=== PATIENT | female | born 1930 | race Caucasian/White ===

== ENCOUNTER 2018-06-23 14:18 | Inpatient (IN) ==
[2018-06-23] MEDS ORDERED: Acetaminophen 325 MG Tablet PO ONE (16:14)
--- NOTE | 2018-06-23 16:16 | ED ---
HPI General Chief complaint: Extremity Problem,Nontraumatic Stated complaint: Rt Leg pain Time Seen by Provider: 06/23/18 16:02 Source: patient, EMS and RN notes reviewed Mode of arrival: EMS History of Present Illness HPI narrative: 88yF presenting with right leg pain and swelling. The patient states that she has a history of lower extremity DVT and uses a walker to ambulate at baseline. For the past 2-3 days, she's been having right calf swelling and severe "sharp" pain which is worse with weight bearing and somewhat relieved by rest. She says that the pain has been so severe yesterday and today that she is unable to ambulate even with the walker. She denies trauma , fever, chest pain, cough, dyspnea, or palpitations. Related Data Home Medications Medication Instructions Recorded Confirmed losartan 25 mg PO DAILY 06/23/18 06/23/18 Previous Rx's Medication Instructions Recorded enoxaparin [Lovenox] 80 mg SUB-Q Q12HR #10 ml 06/25/18 hydrocodone-acetaminophen 1 tab PO Q4H PRN #10 tab 06/25/18 warfarin [Coumadin] 4 mg PO DAILY@1600 #20 tab 06/25/18 Allergies Allergy/AdvReac Type Severity Reaction Status Date / Time penicillin G Allergy Severe "VIOLENT Verified 06/23/18 14:34 REACTION" Review of Systems ROS: all other systems reviewed are negative Constitutional Denies fever(s) Eyes Denies blurry vision ENT Denies nasal congestion Cardiovascular Denies chest pain Respiratory Denies cough Gastrointestinal Denies nausea Genitourinary Denies dysuria Musculoskeletal Denies back pain Neurologic Denies confusion Psychiatric Denies confusion PMFSH History History Provided By: Patient Medical History Medical History DVT (deep venous thrombosis) (Acute) HTN (hypertension) (Acute) Surgical History Surgical History Vascular abnormality (Acute) Family History Family History Other Unknown family medical history Social History Social History Substance History: No History of Abuse Second Hand Smoke Exposure: No Smoking Status: Former smoker Tobacco Type: Cigarettes How Often Do You Have a Drink Containing Alcohol: Never Recent Travel in [facility] within the Last 8 Weeks: No Recent Out of Country Travel within the Last 8 Weeks: No Immunization History Tetanus Immunization: <5 Years Hx Influenza Vaccine This Season: Yes Exam Const General: healthy appearing and no acute distress HENMT Head: normocephalic and atraumatic Face and sinus: normal facial exam Eyes General: appearance normal, both eyes and all related structures Pupils: PERRL Chest Chest: normal inspection of the chest Resp Effort & Inspection: normal respiratory effort Auscultation: no rhonchi and no wheezes Cardio Rate: regular rate Rhythm: regular rhythm GI Inspection: non-distended Palpation: soft and nontender Skin General: no rashes or lesions noted Neuro General: alert, awake, oriented x3 and no focal motor deficits Extrem Other: Erythematous patches to bilateral lower extremities which patient states are chronic and due to "sun damage" Trace to 1+ pitting edema of bilaterally lower extremities to knees Strong dorsalis pedis pulse on right, 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 Psych Affect: normal affect Course Initial Documented Vital Signs Temperature 98.9 F 06/23/18 14:30 Pulse Rate 66 06/23/18 14:30 Respiratory Rate 16 06/23/18 14:30 Blood Pressure 135/82 06/23/18 14:30 Pulse Oximetry 98 06/23/18 14:30 Last Documented Vital Signs Temperature 96.6 F L 06/25/18 10:59 Pulse Rate 78 06/25/18 10:59 Respiratory Rate 20 06/25/18 10:59 Blood Pressure 134/62 06/25/18 10:59 Pulse Oximetry 98 06/25/18 10:59 Medical Decision Making [facility] Narrative Medical decision making narrative: Assessment: 88yF presenting with right lower extremity swelling and pain, on Eliquis for previous DVT Plan: Basic labs US duplex Tylenol for pain Differential Diagnosis Differential Diagnosis: Differential diagnosis includes, but is not limited to: DVT, peripheral edema, musculoskeletal pain Lab Data Result diagrams: 06/24/18 07:31 06/24/18 07:31 Lab Results 06/23/18 06/23/18 06/23/18 Range/Units 17:32 17:32 17:32 CBC w Diff Auto diff final WBC 7.9 (4.0-11.0) th/mm3 RBC 3.56 L (4.00-5.30) mil/mm3 Hgb 12.5 (11.6-15.3) gm/dL Hct 37.8 (35.0-46.0) % MCV 106.2 H (80.0-100.0) fL MCH 35.1 H (27.0-34.0) pg MCHC 33.1 (32.0-36.0) % RDW 15.5 (11.6-17.2) % Plt Count 280 (150-450) th/mm3 MPV 7.4 (7.0-11.0) fL Neut % (Auto) 65.5 (16.0-70.0) % Lymph % (Auto) 26.7 (9.0-44.0) % Sharp % (Auto) 6.1 (0.0-8.0) % Eos % (Auto) 0.7 (0.0-4.0) % Baso % (Auto) 1.0 (0.0-2.0) % Neut # (Auto) 5.1 (1.8-7.7) th/mm3 Lymph # (Auto) 2.1 (1.0-4.8) th/mm3 Sharp # (Auto) 0.5 (0.0-0.9) th/mm3 Eos # (Auto) 0.1 (0.0-0.4) th/mm3 Baso # (Auto) 0.1 (0.0-0.2) th/mm3 WBC Differential . Differential Comment . PT 10.9 (9.8-11.6) sec INR 1.1 Ratio Sodium 140 (136-145) meq/L Potassium 4.3 (3.5-5.1) meq/L Chloride 107 (98-107) meq/L Carbon Dioxide 25.6 (21.0-32.0) meq/L Anion Gap 7 (5-15) meq/L BUN 24 H (7-18) mg/dL Creatinine 1.10 H (0.50-1.00) mg/dL Estimated GFR 47 L (>89) mL/min Random Glucose 103 (74-106) mg/dL Calcium 9.0 (8.5-10.1) mg/dL Total Bilirubin 0.6 (0.2-1.0) mg/dL AST 19 (15-37) U/L ALT 16 (10-53) U/L Alkaline Phosphatase 75 (45-117) U/L Total Protein 7.3 (6.4-8.2) g/dL Albumin 3.3 L (3.4-5.0) g/dL 06/24/18 06/24/18 06/25/18 Range/Units 07:31 07:31 07:27 CBC w Diff Auto diff final WBC 6.5 (4.0-11.0) th/mm3 RBC 3.41 L (4.00-5.30) mil/mm3 Hgb 12.1 (11.6-15.3) gm/dL Hct 35.7 (35.0-46.0) % MCV 104.8 H (80.0-100.0) fL MCH 35.6 H (27.0-34.0) pg MCHC 34.0 (32.0-36.0) % RDW 16.6 (11.6-17.2) % Plt Count 268 (150-450) th/mm3 MPV 7.8 (7.0-11.0) fL Neut % (Auto) 51.7 (16.0-70.0) % Lymph % (Auto) 36.6 (9.0-44.0) % Sharp % (Auto) 9.6 H (0.0-8.0) % Eos % (Auto) 1.4 (0.0-4.0) % Baso % (Auto) 0.7 (0.0-2.0) % Neut # (Auto) 3.4 (1.8-7.7) th/mm3 Lymph # (Auto) 2.4 (1.0-4.8) th/mm3 Sharp # (Auto) 0.6 (0.0-0.9) th/mm3 Eos # (Auto) 0.1 (0.0-0.4) th/mm3 Baso # (Auto) 0.0 (0.0-0.2) th/mm3 WBC Differential . Differential Comment . PT 11.1 (9.8-11.6) sec INR 1.1 Ratio Sodium 142 (136-145) meq/L Potassium 3.9 (3.5-5.1) meq/L Chloride 109 H (98-107) meq/L Carbon Dioxide 23.5 (21.0-32.0) meq/L Anion Gap 10 (5-15) meq/L BUN 22 H (7-18) mg/dL Creatinine 1.00 (0.50-1.00) mg/dL Estimated GFR 52 L (>89) mL/min Random Glucose 105 (74-106) mg/dL Calcium 8.5 (8.5-10.1) mg/dL Total Bilirubin 0.8 (0.2-1.0) mg/dL AST 17 (15-37) U/L ALT 16 (10-53) U/L Alkaline Phosphatase 72 (45-117) U/L Total Protein 6.8 (6.4-8.2) g/dL Albumin 3.1 L (3.4-5.0) g/dL Imaging Data Radiologist's impression: Venous Doppler Study 06/23/18 16:13 CONCLUSION: 1. Limited examination but positive for deep venous thrombosis at least in the popliteal and peroneal veins. Discharge Plan Discharge Disposition Patient Disposition: /Home Health Service Discharge Condition Condition: Stable Discharge Order Discharge Orders: Discharge Order (Routine); Ordered 06/25/18 Ordered By: Alana Stone Discharge Details Anticipated Discharge Date: 06/25/18 Physicians Team ED Provider: Morales Coles Primary Care Provider: Leandro Lipscomb Attending Provider: Alana Stone Other Providers: Alexis Bermudez Status ED Status: Left Department Discharge Information Discharge Date/Time: 06/23/18 20:55
[2018-06-23 17:40] LABS: Baso # (Auto) 0.1 th/mm3 (0.0-0.2); Eos # (Auto) 0.1 th/mm3 (0.0-0.4); Eos % (Auto) 0.7 % (0.0-4.0); Hematocrit 37.8 % (35.0-46.0); Hemoglobin 12.5 gm/dL (11.6-15.3); Lymph # (Auto) 2.1 th/mm3 (1.0-4.8); Lymph % (Auto) 26.7 % (9.0-44.0); Mean Corpuscular HGB Conc 33.1 % (32.0-36.0); Mean Corpuscular Hemoglobin 35.1 pg (27.0-34.0); Mean Corpuscular Volume 106.2 fL (80.0-100.0); Mean Platelet Volume 7.4 fL (7.0-11.0); Mono # (Auto) 0.5 th/mm3 (0.0-0.9); Mono % (Auto) 6.1 % (0.0-8.0); Neut # (Auto) 5.1 th/mm3 (1.8-7.7); Neut % (Auto) 65.5 % (16.0-70.0); Platelet Count 280 th/mm3 (150-450); Red Blood Count 3.56 mil/mm3 (4.00-5.30); Red Cell Distribution Width 15.5 % (11.6-17.2); White Blood Count 7.9 th/mm3 (4.0-11.0)
--- NOTE | 2018-06-23 17:44 | US ---
EXAM DATE: 06/23/2018 5:35 PM EDT AGE/SEX: 88 years / Female INDICATIONS: Right leg swelling and pain. CLINICAL DATA: This is the patient's initial encounter. Patient reports that signs and symptoms have been present for 1 day and indicates a pain score of 7/10. MEDICAL/SURGICAL HISTORY: . Right leg swelling and pain. DVT. None. COMPARISON: No prior exams available for comparison. TECHNIQUE: Venous ultrasound of both lower extremities was performed from the inguinal ligament to t he proximal calf. Real-time, color Doppler and spectral tracing, compression and augmentation techni ques were used. FINDINGS: There is normal compressibility of the common femoral vein and proximal and mid superficia l femoral vein. Examination limited due to leg swelling. No color flow identified in the popliteal pe roneal vein and distal superficial femoral vein not visualized. CONCLUSION: 1. Limited examination but positive for deep venous thrombosis at least in the popliteal and peronea l veins. Electronically signed by: Luis Brooks MD 06/23/2018 5:43 PM EDT
[2018-06-23 17:48] LABS: Chloride 107 meq/L (98-107); Potassium 4.3 meq/L (3.5-5.1); Sodium 140 meq/L (136-145)
[2018-06-23 17:52] LABS: Albumin 3.3 g/dL (3.4-5.0); Anion Gap 7 meq/L (5-15); Blood Urea Nitrogen 24 mg/dL (7-18); Carbon Dioxide 25.6 meq/L (21.0-32.0); Glucose,Random 103 mg/dL (74-106); INR 1.1 Ratio; Prothrombin Time 10.9 sec (9.8-11.6)
[2018-06-23 17:55] LABS: Alanine Aminotransferase 16 U/L (10-53); Aspartate Aminotransferase 19 U/L (15-37); Glomerular Filtration Rate 47 mL/min (>89)
[2018-06-23 17:57] LABS: Total Protein 7.3 g/dL (6.4-8.2)
[2018-06-23 17:58] LABS: Alkaline Phosphatase 75 U/L (45-117)
[2018-06-23] MEDS ORDERED: Bisacodyl 10 MG Supp RECTAL PRN (19:16)
[2018-06-23] MEDS ORDERED: Acetaminophen 325 MG Tablet PO PRN (19:16)
[2018-06-23] MEDS: Sod Chloride 0.9% Inj 1,000 ML IV.CONT SCH (20:09)
[2018-06-23] MEDS ORDERED: Temazepam 15 MG Capsule PO PRN (21:00)
[2018-06-23] MEDS: Enoxaparin Inj 80 MG/0.8 ML Syringe SQ SCH (21:54)
[2018-06-23] MEDS: Senna/Docusate Sodium 8.6/50 MG Tablet PO SCH (21:54)
[2018-06-24 04:55] VITALS: RESP 20
[2018-06-24] MEDS: Sod Chloride 0.9% Inj 1,000 ML IV.CONT SCH ×2 (07:18→11:12)
[2018-06-24 07:51] LABS: Baso % (Auto) 0.7 % (0.0-2.0); Eos # (Auto) 0.1 th/mm3 (0.0-0.4); Eos % (Auto) 1.4 % (0.0-4.0); Hematocrit 35.7 % (35.0-46.0); Hemoglobin 12.1 gm/dL (11.6-15.3); Lymph # (Auto) 2.4 th/mm3 (1.0-4.8); Lymph % (Auto) 36.6 % (9.0-44.0); Mean Corpuscular Hemoglobin 35.6 pg (27.0-34.0); Mean Corpuscular Volume 104.8 fL (80.0-100.0); Mean Platelet Volume 7.8 fL (7.0-11.0); Mono # (Auto) 0.6 th/mm3 (0.0-0.9); Mono % (Auto) 9.6 % (0.0-8.0); Neut # (Auto) 3.4 th/mm3 (1.8-7.7); Neut % (Auto) 51.7 % (16.0-70.0); Platelet Count 268 th/mm3 (150-450); Red Blood Count 3.41 mil/mm3 (4.00-5.30); Red Cell Distribution Width 16.6 % (11.6-17.2); White Blood Count 6.5 th/mm3 (4.0-11.0)
[2018-06-24 07:59] LABS: Chloride 109 meq/L (98-107); Potassium 3.9 meq/L (3.5-5.1); Sodium 142 meq/L (136-145)
[2018-06-24 08:05] LABS: Albumin 3.1 g/dL (3.4-5.0); Blood Urea Nitrogen 22 mg/dL (7-18); Calcium 8.5 mg/dL (8.5-10.1); Glucose,Random 105 mg/dL (74-106)
[2018-06-24 08:06] LABS: Anion Gap 10 meq/L (5-15); Carbon Dioxide 23.5 meq/L (21.0-32.0)
[2018-06-24 08:08] LABS: Alanine Aminotransferase 16 U/L (10-53); Aspartate Aminotransferase 17 U/L (15-37); Glomerular Filtration Rate 52 mL/min (>89)
[2018-06-24 08:10] LABS: Total Protein 6.8 g/dL (6.4-8.2)
[2018-06-24 08:11] LABS: Alkaline Phosphatase 72 U/L (45-117)
[2018-06-24] MEDS: Senna/Docusate Sodium 8.6/50 MG Tablet PO SCH ×3 (09:15→21:19)
[2018-06-24] MEDS: Enoxaparin Inj 80 MG/0.8 ML Syringe SQ SCH ×2 (09:15→21:14)
--- NOTE | 2018-06-24 13:04 | P.DCO ---
- Diagnosis (1) DVT (deep venous thrombosis) - Physical Therapy Order: Evaluate and treat, Improve ambulation - Home Health Nursing Order: Medical education, Signs/symptoms of disease process, Telehealth - Home Health Aide Order: To assist in: Bathing and personal care, cardiovascular sonographer and meal prep - Certification I have seen patient Astrid Davis on 06/24/18. My clinical findings support the need for the requested home health care services because: Patient has SOB, Deconditioned with increased weakness I certify that my clinical findings support that this patient is homebound because: Unsteady gait/balance, Unable to use public transportation (1) DVT (deep venous thrombosis) Qualifiers: DVT location: lower extremity Laterality: right
--- NOTE | 2018-06-24 13:09 | P.HPIM ---
History of Present Illness Primary Care Physician: Leandro Lipscomb MD Chief Complaint: Right leg pain History of Present Illness: Patient is an 88-year-old female with a history of DVT in the right lower extremity and Eliquis. She subsequently had an injury to the foot which resulted inrevascularization of the right leg and second right toe amputation. Patient comes back to the hospital complaining of severe nonradiating right lower extremity pain which is causing difficulty ambulating. Thus far she has refused any pain medication and has refused to get out of bed. I declined to the patient that she will need to be treated with warfarin and Lovenox instead of the Eliquis at this point. She is agreeable and is agreeable to continue with rehab efforts. Care plan discussed with patient and son at bedtime - Diagnosis (1) DVT (deep venous thrombosis) Inpatient Certification: I certify that the inpatient services were ordered in accordance with Medicare regulations governing the order. This includes certification that hospital inpatient services are reasonable and necessary and in the case of services not specified as inpatient-only under 42 CFR 419.22(n), that they are appropriately provided as inpatient services in accordance to with the 2-midnight benchmark under 43 CFR 412.3(e) Estimated Total Length of Stay (Days): 2 Plans for Post Hospital Care: Not yet determined Review of Systems All other systems reviewed negative except as stated [facility] - History History Provided By: Patient - Medical History Medical History: Medical History (Last Updated 06/24/18 @ 13:05 by Alana Stone MD) DVT (deep venous thrombosis) HTN (hypertension) - Surgical History Surgical History: Surgical History (Last Updated 06/24/18 @ 13:06 by Alana Stone MD) Vascular abnormality (Acute) - Family History Family History: Family History (Last Updated 06/24/18 @ 13:06 by Alana Stone MD) Other Unknown family medical history - Tobacco History Second Hand Smoke Exposure: No Tobacco Use In Past 30 Days: No Smoking Status: Former smoker Tobacco Type: Cigarettes - Alcohol History How Often Do You Have a Drink Containing Alcohol: Never - Substance Use History Substance History: No History of Abuse - Travel History Recent Travel in the [place] Within the Last 8 Weeks: No Recent Travel Out of the Country Within the Last 8 Weeks: No - Immunization History Tetanus Immunization: <5 Years Hx Influenza Vaccine This Season: Yes Medications and Allergies Active Medications: Active Medications Acetaminophen (Tylenol) 650 mg PO Q4H PRN PRN Reason: Temp > 100.4 Hydrocodone Bitart/Acetaminophen ([place] 10/325) 1 tab PO Q4H PRN PRN Reason: PAIN 6-10 Last Admin: 06/23/18 21:54 Dose: 1 tab Hydrocodone Bitart/Acetaminophen ([place] 5/325) 1 tab PO Q4H PRN PRN Reason: PAIN 3-5 Al Hydroxide/Mg Hydroxide (Milk Of Magnesia Liq) 30 ml PO Q12H PRN PRN Reason: Mild Constipation Bisacodyl (Dulcolax Supp) 10 mg RECTAL DAILY PRN PRN Reason: SEVERE CONSITIPATION Celecoxib (Celebrex) 200 mg PO ONCE ONE Stop: 06/24/18 13:02 Enoxaparin Sodium (Lovenox Inj) 80 mg SQ Q12HR [facility] Last Admin: 06/24/18 09:15 Dose: 80 mg Pharmacy Profile Note (Coumadin Consult Pharmacy) 0 mls @ 0 mls/hr OTHER UNSCH [facility] Lactulose (Lactulose Liq) 30 ml PO DAILY PRN PRN Reason: SEVERE CONSITIPATION Ondansetron HCl (Zofran Inj) 4 mg IV.PUSH Q6H PRN PRN Reason: NAUSEA OR VOMITING Senna/Docusate Sodium (Rocío-Colace) 1 tab PO BID [facility] Last Admin: 06/24/18 09:15 Dose: 1 tab Sennosides (Senokot) 17.2 mg PO Q12H PRN PRN Reason: Moderate Constipation Temazepam (Restoril) 15 mg PO HS PRN PRN Reason: INSOMNIA Warfarin Sodium (Coumadin) 4 mg PO DAILY@1600 [facility] Allergies Allergy/AdvReac Type Severity Reaction Status Date / Time penicillin G Allergy Severe "VIOLENT Verified 06/23/18 14:34 REACTION" Home Medications Medication Instructions Recorded Confirmed Type apixaban [Eliquis] 5 mg PO BID 06/23/18 06/23/18 History losartan 25 mg PO DAILY 06/23/18 06/23/18 History Exam Vital signs: Vital Signs 06/23/18 14:30 06/23/18 15:23 06/23/18 19:09 Temperature 98.9 F Pulse Rate 66 95 H 77 Respiratory Rate 16 16 16 Blood Pressure 135/82 175/74 H 119/59 L Pulse Oximetry 98 99 96 06/23/18 21:00 06/23/18 21:54 06/24/18 00:00 Temperature 97.9 F 98.1 F Pulse Rate 81 75 Respiratory Rate 20 18 20 Blood Pressure 127/59 L 142/70 H Pulse Oximetry 97 96 06/24/18 00:47 06/24/18 04:00 06/24/18 07:56 Temperature 96.6 F L 97.5 F L Pulse Rate 83 82 Respiratory Rate 18 20 20 Blood Pressure 133/73 135/63 Pulse Oximetry 95 93 L 06/24/18 11:35 Temperature 97.8 F Pulse Rate 80 Respiratory Rate 20 Blood Pressure 132/60 Pulse Oximetry 94 L Intake & Output 06/23/18 06/24/18 06/24/18 18:59 06:59 18:59 Intake Total 240 / 240 300 / 300 Balance 240 / 240 300 / 300 Weight 75 kg 86.5 kg Intake: IV 300 / 300 NS Inj 1,000 ML @ 100 mls/hr IV 300 / 300 .CONT .Q10H MICHELLE Rx#:[id number] Oral 240 / 240 Other: # Voids 3 Weight On Admission 88.6 kg Narrative: GENERAL: Well-nourished, well-developed patient. SKIN: She is ecchymoses in various stages of healing HEAD: Normocephalic. EYES: No scleral icterus. No injection or drainage. NECK: Supple, trachea midline. No JVD or lymphadenopathy. CARDIOVASCULAR: Regular rate and rhythm without murmurs, gallops, or rubs. RESPIRATORY: Breath sounds equal bilaterally. No accessory muscle use. GASTROINTESTINAL: Abdomen soft, non-tender, nondistended. MUSCULOSKELETAL: Right second toe amputated, otherwise extremities without no cyanosis, or edema. BACK: Nontender without obvious deformity. No CVA tenderness. NEUROLOGICAL: Awake and alert. Cranial nerves II through XII intact. Motor and sensory grossly within normal limits. Five out of 5 muscle strength in all muscle groups. Normal speech. Results - Labs CBC & Chem 7: 06/24/18 07:31 06/24/18 07:31 Labs: Short CBC 06/23/18 06/24/18 Range/Units 17:32 07:31 WBC 7.9 6.5 (4.0-11.0) th/mm3 Hgb 12.5 12.1 (11.6-15.3) gm/dL Hct 37.8 35.7 (35.0-46.0) % Plt Count 280 268 (150-450) th/mm3 BMP 06/23/18 06/24/18 17:32 07:31 Sodium 140 142 Potassium 4.3 3.9 Chloride 107 109 H Carbon Dioxide 25.6 23.5 BUN 24 H 22 H Creatinine 1.10 H 1.00 Calcium 9.0 8.5 Liver Function 06/23/18 06/24/18 Range/Units 17:32 07:31 Total Bilirubin 0.6 0.8 (0.2-1.0) mg/dL AST 19 17 (15-37) U/L ALT 16 16 (10-53) U/L Alkaline Phosphatase 75 72 (45-117) U/L Albumin 3.3 L 3.1 L (3.4-5.0) g/dL - Imaging Impressions Venous Doppler Study 06/23/18 16:13 CONCLUSION: 1. Limited examination but positive for deep venous thrombosis at least in the popliteal and peroneal veins. Caprini VTE Risk Assessment Caprini VTE Risk Assessment: Moderate/High Risk (score >= 2) VTE Pharmacological Exception Reason: Coagulopathy,INR elevated Caprini Risk Assessment Model: Point Value = 1 Point Value = 2 Point Value = 3 Point Value = 5 Age 41-60 Minor surgery BMI > 25 kg/m2 Swollen legs Varicose veins or History of unexplained or recurrent spontaneous Oral contraceptives or hormone replacement Sepsis (< 1 month) Serious lung disease, including pneumonia (< 1 month) Abnormal pulmonary function Acute myocardial infarction Congestive heart failure (< 1 month) History of inflammatory bowel disease Medical patient at bed rest Age 61-74 Arthroscopic surgery Major open surgery (> 45 min) Laparoscopic surgery (> 45 min) Malignancy Confined to bed (> 72 hours) Immobilizing plaster cast Central venous access Age >= 75 History of VTE Family history of VTE Factor V Leiden Prothrombin [id number] Lupus anticoagulant Anticardiolipin antibodies Elevated serum homocysteine Heparin-induced thrombocytopenia Other congenital or acquired thrombophilia Stroke (< 1 month) Elective arthroplasty Hip, pelvis, or leg fracture Acute spinal cord injury (< 1 month) Prophylaxis Regimen: Total Risk Factor Score Risk Level Prophylaxis Regimen 0-1 Low Early ambulation 2 Moderate Order ONE of the following: *Sequential Compression Device (SCD) *Heparin 5000 units SQ BID 3-4 Higher Order ONE of the following medications: *Heparin 5000 units SQ TID *Enoxaparin/Lovenox 40 mg SQ daily (WT < 150 kg, CrCl > 30 mL/min) *Enoxaparin/Lovenox 30 mg SQ daily (WT < 150 kg, CrCl > 10-29 mL/min) *Enoxaparin/Lovenox 30 mg SQ BID (WT < 150 kg, CrCl > 30 mL/min) AND/OR *Sequential Compression Device (SCD) 5 or more Highest Order ONE of the following medications: *Heparin 5000 units SQ TID (Preferred with Epidurals) *Enoxaparin/Lovenox 40 mg SQ daily (WT < 150 kg, CrCl > 30 mL/min) *Enoxaparin/Lovenox 30 mg SQ daily (WT < 150 kg, CrCl > 10-29 mL/min) *Enoxaparin/Lovenox 30 mg SQ BID (WT < 150 kg, CrCl > 30 mL/min) AND *Sequential Compression Device (SCD) Assessment and Plan - Assessment (1) DVT (deep venous thrombosis) Code(s): I82.409 - Acute embolism and thrombosis of unspecified deep veins of unspecified lower extremity Status: Acute Plan: Continue with Lovenox and Coumadin for bridging Patient has failed Eliquis Patient education anti-inflammatory for pain Continue with PT Likely discharge home with home health care when stable - Plan Likely discharge home with home health care in a.m. H&P: Quality - VTE Deep Vein Thrombosis/Pulmonary Embolism Present on Admission: Yes (1) DVT (deep venous thrombosis) Qualifiers: DVT location: lower extremity Laterality: right
[2018-06-24] MEDS ORDERED: Celecoxib 200 MG Capsule PO ONE (14:00)
[2018-06-24] MEDS ORDERED: Warfarin Consult Pharmacy 1 EACH OTHER SCH (14:00)
--- NOTE | 2018-06-25 00:27 | MB ---
cc: Alexis Bermudez MD DATE: 06/24/2018 REASON FOR CONSULTATION: An 88-year-old female with a diagnosis of deep vein thrombosis occurring while taking Eliquis. PATIENT PROFILE: The patient is an 88-year-old white female. She is . She has 2 children who are living. She has a daughter who is that she continues to mourn. The patient was born in [place]. She has lived in [place] for 35 years. She lives alone. She is retired. 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 She smoked only briefly when she was in her teens and early 20s. She does not drink alcohol. HISTORY OF PRESENT ILLNESS: The patient is an 88-year-old female who has peripheral vascular disease. She gives me history of having pain in the right calf for 2 weeks. When she came to the ER, she stated that she had pain for 2 or 3 days. This resulted in an ultrasound of the right leg being performed on 06/23/2018. This was a limited study, but was positive for deep vein thrombosis in the popliteal and peroneal veins. She had been prescribed Eliquis 5 mg p.o. b.i.d. for, I believe, atrial fibrillation. She also gave a history of having a previous deep vein thrombosis, but this is in fact not correct. In reviewing her records, she had arterial thrombosis involving the right lower extremity and had gangrene of the right second toe and ischemia of the right foot in 09/2016 and required amputation of a necrotic toe as well as right femoral artery exploration and arteriotomy, right common iliac balloon angioplasty and right superficial artery balloon angioplasty. I am unable to identify a previous history of venous thrombosis. Due to the fact that the venous thrombosis occurred on Eliquis, she was felt to have failed Eliquis and she is now receiving Lovenox and Coumadin. After speaking with her it became apparent that she was not consistent in taking the Eliquis, usually taking it once a day and some days she may not have taken the medicine at all. She tells me that she is forgetful as she remains preoccupied over the of her daughter which was a number of years ago. PAST SURGICAL HISTORY: 1. Right hip replacement [address] Ananth Harrison. 2. Amputation of toe of right foot for peripheral vascular disease. PAST MEDICAL HISTORY: 1. Peripheral vascular disease. 2. Atrial fibrillation. 3. Diabetes, controlled with diet. MEDICATIONS PRIOR TO ADMISSION: 1. Eliquis 5 mg p.o. b.i.d. 2. Losartan 25 mg a day. As indicated above, the patient was not necessarily taking the medicine as prescribed as she is very vague and tells me that she often took it once a day and sometimes she is not entirely sure when she took the medicine. ALLERGIES: PENICILLIN. FAMILY HISTORY: Noncontributory. REVIEW OF SYSTEMS: Notable for the recent pain in the right calf. Her major complaint is that she continues to mourn the loss of her daughter. Other review of systems is otherwise unremarkable. LABORATORY TESTS: On 06/24/2018, hemoglobin 12, white count 6500, platelets 268,000. PT 10.9. Electrolytes, BUN, creatinine and liver function tests were notable for an albumin of 3.1, creatinine was 1.0. PHYSICAL EXAMINATION: GENERAL: Reveals an inquisitive, talkative female who tends to wander from one subject to another, often repeating the same question. VITAL SIGNS: Blood pressure is 120/60, respiratory rate 20, pulse 80, afebrile, O2 saturation 95%. HEENT: Head is normocephalic. Sclerae and conjunctivae are normal. Oropharynx unremarkable. NECK: No adenopathy. HEART: Rhythm is mostly regular, extra beats or atrial fibrillation. LUNGS: Clear without rales, wheezes, or rhonchi. ABDOMEN: Without hepatosplenomegaly or masses. EXTREMITIES: She has had an amputation of a toe of her right foot. Slight right calf tenderness and swelling. NEUROLOGIC: No focal weakness. ASSESSMENT: The patient is an 88-year-old female who was admitted with a deep vein thrombosis in the right leg. I was asked to see her because she "failed Eliquis" and this was a second venous thrombosis. This is not entirely correct. She was not reliable in taking the medicine and her previous history is not of venous thrombosis, but an arterial thrombosis and I believe that the Eliquis may have been given for atrial fibrillation and possibly for arterial disease, but not due to previous venous thrombosis or at least I cannot find a history of this. RECOMMENDATIONS: Coumadin is a reasonable drug. She will need very close monitoring. She is not reliable. She should only take an anticoagulant which is taken once a day. If it becomes too difficult to manage her with Coumadin, I would consider Xarelto 20 mg once a day. I doubt that she has failed Eliquis. It appears more likely that she simply did not take the medicine as this appears to be the case when one questions her closely. I spoke with the on-call physician. Therefore, in summary, Coumadin is reasonable if she can undergo close meticulous monitoring. If not, I would give a try with Xarelto 20 mg once a day, making the assumption that she did not fail the Eliquis, as she did not take it reliably, as she readily admits when questioned closely. MD FRANK Conti/frank , 11:11 PM , 11:26 PM MTDDivina
[2018-06-25 07:26] VITALS: O2SAT 98
[2018-06-25 08:04] LABS: INR 1.1 Ratio; Prothrombin Time 11.1 sec (9.8-11.6)
[2018-06-25] MEDS: Enoxaparin Inj 80 MG/0.8 ML Syringe SQ SCH (09:17)
[2018-06-25] MEDS: Senna/Docusate Sodium 8.6/50 MG Tablet PO SCH (09:18)
--- NOTE | 2018-06-25 09:20 | P.PNIM ---
Subjective Interval history: Patient seen and evaluated in follow-up for DVT with severe pain inhibiting ambulation. Improved with pain management. Pain medicine on eforce shows last fill date 10/15/2016 oxycodone 5/325. Physical Exam Vital signs: Vital Signs 06/24/18 11:35 06/24/18 15:07 06/24/18 20:00 Temperature 97.8 F 97.6 F 97.5 F L Pulse Rate 80 96 H 86 Respiratory Rate 20 20 20 Blood Pressure 132/60 110/55 L 120/57 L Pulse Oximetry 94 L 95 95 06/25/18 00:00 06/25/18 04:00 06/25/18 07:24 Temperature 96.7 F L 96.3 F L Pulse Rate 93 H 75 Respiratory Rate 20 20 Blood Pressure 169/74 H 161/70 H 139/63 Pulse Oximetry 95 98 Intake & Output 06/24/18 06/25/18 06/25/18 18:59 06:59 18:59 Intake Total 1660 / 1660 240 / 240 Balance 1660 / 1660 240 / 240 Weight 86.4 kg Intake: IV 820 / 820 NS Inj 1,000 ML @ 100 mls/hr IV 820 / 820 .CONT .Q10H MICHELLE Rx#:[id number] Oral 840 / 840 240 / 240 Other: # Voids 3 4 # Bowel Movements 1 Narrative: GENERAL: Well-nourished, well-developed patient. SKIN: Warm and dry. HEAD: Normocephalic. EYES: No scleral icterus. No injection or drainage. NECK: Supple, trachea midline. No JVD or lymphadenopathy. CARDIOVASCULAR: Regular rate and rhythm without murmurs, gallops, or rubs. RESPIRATORY: Breath sounds equal bilaterally. No accessory muscle use. GASTROINTESTINAL: Abdomen soft, non-tender, nondistended. MUSCULOSKELETAL: No cyanosis, or edema. BACK: Nontender without obvious deformity. No CVA tenderness. NEUROLOGICAL: Awake and alert. Cranial nerves II through XII intact. Motor and sensory grossly within normal limits. Five out of 5 muscle strength in all muscle groups. Normal speech. Results - Labs CBC & Chem 7: 06/24/18 07:31 06/24/18 07:31 Laboratory Results - last 24 hr 06/25/18 07:27 PT 11.1 INR 1.1 - Imaging Ultrasound right lower extremity. Limited examination but positive for deep venous thrombosis at least in the popliteal and peroneal veins. Assessment and Plan - Assessment (1) DVT (deep venous thrombosis) Code(s): I82.409 - Acute embolism and thrombosis of unspecified deep veins of unspecified lower extremity Status: Acute Plan: Continue with Lovenox and Coumadin for bridging Patient has failed Eliquis Patient education pain regimen Continue with PT Likely discharge home with home health care when stable - Plan Likely discharge home with home health care in a.m. Discharge Planning: Discharge home With home health care Heart healthy diet Activity unrestricted (1) DVT (deep venous thrombosis) Qualifiers: DVT location: lower extremity Laterality: right
[2018-06-25 10:59] VITALS: BP 134/62; PULSE 78; TEMP 96.6
== END 2018-06-25 12:45 | disposition home health service (06) ==
LOC: PHED 14:18 → PHEDA 19:16 → PH3 20:51
PROVIDERS: ADMIT Hospitalist; ATTEND Hospitalist

== ENCOUNTER 2018-10-25 20:51 | Inpatient (IN) ==
[2018-10-25 22:12] LABS: Baso % (Auto) 0.3 % (0.0-2.0); Eos % (Auto) 0.2 % (0.0-4.0); Lymph # (Auto) 1.1 th/mm3 (1.0-4.8); Lymph % (Auto) 9.4 % (9.0-44.0); Mean Corpuscular HGB Conc 33.2 % (32.0-36.0); Mean Corpuscular Hemoglobin 36.6 pg (27.0-34.0); Mean Corpuscular Volume 110.1 fL (80.0-100.0); Mean Platelet Volume 7.4 fL (7.0-11.0); Mono # (Auto) 0.9 th/mm3 (0.0-0.9); Mono % (Auto) 7.4 % (0.0-8.0); Neut % (Auto) 82.7 % (16.0-70.0); Platelet Count 316 th/mm3 (150-450); Red Blood Count 3.27 mil/mm3 (4.00-5.30); Red Cell Distribution Width 19.4 % (11.6-17.2)
[2018-10-25 22:26] LABS: Chloride 106 meq/L (98-107); Potassium 4.3 meq/L (3.5-5.1); Sodium 140 meq/L (136-145)
[2018-10-25 22:29] LABS: Calcium 8.5 mg/dL (8.5-10.1)
[2018-10-25 22:30] LABS: Albumin 3.3 g/dL (3.4-5.0); Anion Gap 9 meq/L (5-15); Blood Urea Nitrogen 34 mg/dL (7-18); Carbon Dioxide 25.4 meq/L (21.0-32.0); Glucose,Random 159 mg/dL (74-106); Magnesium 2.2 mg/dL (1.5-2.5)
[2018-10-25 22:33] LABS: Alanine Aminotransferase 34 U/L (10-53); Aspartate Aminotransferase 65 U/L (15-37); Glomerular Filtration Rate 42 mL/min (>89)
[2018-10-25 22:34] LABS: Total Protein 7.9 g/dL (6.4-8.2)
[2018-10-25 22:36] LABS: Alkaline Phosphatase 92 U/L (45-117)
--- NOTE | 2018-10-25 22:48 | ED ---
HPI General Chief complaint: Weakness Stated complaint: Failure To Thrive Time Seen by Provider: 10/25/18 21:39 Source: patient Mode of arrival: ambulatory Limitations: no limitations History of Present Illness HPI Narrative: 88 yo F c/o falls for the past week. two falls have occurred each time while attempting to get off of her bed. today patient spent several hours on the floor. pt wonders if it is due to knee weakness 2/2 chronic arthritis. no head trauma. no complaints of generalized weakness or fever/ chills. no change in medications recently. pt lives alone with twice weekly visiting RN. pt is independent aside from laundry. Related Data Home Medications Medication Instructions Recorded Confirmed losartan 25 mg PO DAILY 06/23/18 10/25/18 Previous Rx's Medication Instructions Recorded enoxaparin [Lovenox] 80 mg SUB-Q Q12HR #10 ml 06/25/18 hydrocodone-acetaminophen 1 tab PO Q4H PRN #10 tab 06/25/18 warfarin [Coumadin] 4 mg PO DAILY@1600 #20 tab 06/25/18 Allergies Allergy/AdvReac Type Severity Reaction Status Date / Time penicillin G Allergy Severe "VIOLENT Verified 06/23/18 14:34 REACTION" Review of Systems ROS: all other systems reviewed are negative [facility] Medical History Medical History DVT (deep venous thrombosis) (Acute) HTN (hypertension) (Acute) Surgical History Surgical History Vascular abnormality (Acute) Family History Family History Other Unknown family medical history Social History Social History Substance History: No History of Abuse Second Hand Smoke Exposure: No Smoking Status: Unknown if ever smoked Tobacco Type: Cigarettes How Often Do You Have a Drink Containing Alcohol: Never Recent Travel in [facility] within the Last 8 Weeks: No Recent Out of Country Travel within the Last 8 Weeks: No Immunization History Tetanus Immunization: <5 Years Exam Narrative Exam Narrative: GENERAL: 88 yo F, WNWD, mild distress, pleasant SKIN: Focused skin assessment warm/dry. HEAD: Atraumatic. Normocephalic. EYES: Pupils equal and round. No scleral icterus. No injection or drainage. ENT: No nasal bleeding or discharge. Mucous membranes pink and moist. NECK: Trachea midline. No JVD. CARDIOVASCULAR: Regular rate and rhythm. No murmur appreciated. RESPIRATORY: No accessory muscle use. Clear to auscultation. Breath sounds equal bilaterally. GASTROINTESTINAL: Abdomen soft, non-tender, nondistended. Hepatic and splenic margins not palpable. MUSCULOSKELETAL: No obvious deformities. TTP R fibular head. No L knee TTP. Bilateral pitting edema lower extremities. NEUROLOGICAL: Awake and alert. No obvious cranial nerve deficits. Motor grossly within normal limits. Normal speech. PSYCHIATRIC: Appropriate mood and affect; insight and judgment normal. Course Initial Documented Vital Signs Temperature 97.6 F 10/25/18 21:29 Pulse Rate 84 10/25/18 21:29 Respiratory Rate 18 10/25/18 21:29 Blood Pressure 122/52 L 10/25/18 21:29 Pulse Oximetry 98 10/25/18 21:29 Last Documented Vital Signs Temperature 97.6 F 10/25/18 21:29 Pulse Rate 87 10/25/18 23:54 Respiratory Rate 16 10/25/18 23:54 Blood Pressure 118/56 L 10/25/18 23:54 Pulse Oximetry 100 10/25/18 23:54 Medical Decision Making [facility] Narrative Medical decision making narrative: CBC shows white count of 12,000, otherwise unremarkable CMP shows BUN 34/1.2 CK 1600 - IVF started UA pending Knee xrays show no fx, DJD present Pelvis xray unremarkable d/w Dr Rush at 1217AM, ok for HPO admission Medical Screen Exam Complete: Yes Emergency Medical Condition: Yes Lab Data Result diagrams: 10/25/18 21:58 10/25/18 21:58 Lab Results 10/25/18 10/25/18 10/25/18 Range/Units 21:58 21:58 21:58 CBC w Diff Auto diff final WBC 12.0 H (4.0-11.0) th/mm3 RBC 3.27 L (4.00-5.30) mil/mm3 Hgb 12.0 (11.6-15.3) gm/dL Hct 36.0 (35.0-46.0) % MCV 110.1 H (80.0-100.0) fL MCH 36.6 H (27.0-34.0) pg MCHC 33.2 (32.0-36.0) % RDW 19.4 H (11.6-17.2) % Plt Count 316 (150-450) th/mm3 MPV 7.4 (7.0-11.0) fL Neut % (Auto) 82.7 H (16.0-70.0) % Lymph % (Auto) 9.4 (9.0-44.0) % [place] % (Auto) 7.4 (0.0-8.0) % Eos % (Auto) 0.2 (0.0-4.0) % Baso % (Auto) 0.3 (0.0-2.0) % Neut # (Auto) 10.0 H (1.8-7.7) th/mm3 Lymph # (Auto) 1.1 (1.0-4.8) th/mm3 [place] # (Auto) 0.9 (0.0-0.9) th/mm3 Eos # (Auto) 0.0 (0.0-0.4) th/mm3 Baso # (Auto) 0.0 (0.0-0.2) th/mm3 WBC Differential . Differential Comment . Sodium 140 (136-145) meq/L Potassium 4.3 (3.5-5.1) meq/L Chloride 106 (98-107) meq/L Carbon Dioxide 25.4 (21.0-32.0) meq/L Anion Gap 9 (5-15) meq/L BUN 34 H (7-18) mg/dL Creatinine 1.20 H (0.50-1.00) mg/dL Estimated GFR 42 L (>89) mL/min Random Glucose 159 H (74-106) mg/dL Calcium 8.5 (8.5-10.1) mg/dL Magnesium 2.2 (1.5-2.5) mg/dL Total Bilirubin 1.3 H (0.2-1.0) mg/dL AST 65 H (15-37) U/L ALT 34 (10-53) U/L Alkaline Phosphatase 92 (45-117) U/L Total Creatine Kinase 1601 H (26-192) U/L Total Protein 7.9 (6.4-8.2) g/dL Albumin 3.3 L (3.4-5.0) g/dL Imaging Data Radiologist's impression: Knee X-Ray 10/25/18 21:39 CONCLUSION: 1. Mild degenerative change. 2. Osteopenia with no evidence of fracture. 3. Diffuse soft tissue prominence. Knee X-Ray 10/25/18 21:39 CONCLUSION: 1. 3 compartment degenerative change greatest in lateral compartment. 2. Osteopenia with no acute fracture. 3. Diffuse soft tissue tissue prominence. Pelvis X-Ray 10/25/18 21:39 CONCLUSION: 1. Mild degenerative change in the left hip. 2. Osteopenia with no acute fracture. 3. Status post right hip arthroplasty. 4. Degenerative disc change and scoliosis in the lumbar spine. Discharge Plan Discharge Disposition Patient Disposition: ED Admit(ED Internal Use Only) Discharge Order Discharge Orders: ED Use Only Admit Order (Routine); Ordered 10/26/18 Ordered By: Virgil Burgos Physicians Team ED Provider: Virgil Burgos Primary Care Provider: Leandro Lipscomb Rxs /Orders / Referrals /Forms Prescriptions: No Action losartan 50 mg Tablet 25 mg PO DAILY RF: 0 warfarin [Coumadin] 4 mg Tablet 4 mg PO DAILY@1600 Qty: 20 RF: 0 enoxaparin [Lovenox] 80 mg/0.8 mL Syringe 80 mg Sub-Q Q12HR Qty: 10 RF: 1 hydrocodone-acetaminophen 5-325 mg Tablet 1 tab PO Q4H PRN (Reason: PAIN 3-5) Qty: 10 RF: 0 Status ED Status: In Room
--- NOTE | 2018-10-25 22:56 | XR ---
EXAM DATE: 10/25/2018 10:53 PM EST AGE/SEX: 88 years / Female INDICATIONS: Pain in pelvis, no known injury. CLINICAL DATA: This is the patient's initial encounter. Patient reports that signs and symptoms have been present for 1 day and indicates a pain score of Nonresponsive. MEDICAL/SURGICAL HISTORY: Non-responsive. Non-responsive. COMPARISON: [facility] INJECTION- HIP, LEFT, 08/25/2015. . FINDINGS: A single AP view of the pelvis was obtained and demonstrates the patient is status post right hip art hroplasty. There are degenerative changes in left hip with superior joint space loss, sclerosis and m ild hypertrophic change. There is diffuse osteopenia with no acute fracture. The sacrum appears intac t. Degenerative disc changes are noted involving the lower lumbar spine with scoliosis. CONCLUSION: 1. Mild degenerative change in the left hip. 2. Osteopenia with no acute fracture. 3. Status post right hip arthroplasty. 4. Degenerative disc change and scoliosis in the lumbar spine. Electronically signed by: Boo Clemente MD 10/25/2018 10:55 PM EST
--- NOTE | 2018-10-25 22:58 | XR ---
EXAM DATE: 10/25/2018 10:54 PM EST AGE/SEX: 88 years / Female INDICATIONS: Swelling bilateral knees. CLINICAL DATA: This is the patient's initial encounter. Patient reports that signs and symptoms have been present for 1 day and indicates a pain score of Nonresponsive. MEDICAL/SURGICAL HISTORY: Non-responsive. Non-responsive. COMPARISON: No prior exams available for comparison. FINDINGS: Multiple views of the knee were obtained and demonstrate diffuse osteopenia in normal alignment. 3 co mpartment degenerative changes are present greatest in the lateral compartment with joint space loss, sclerosis and spurring. There is diffuse osteopenia with no acute fracture. There is diffuse soft ti ssue prominence. CONCLUSION: 1. 3 compartment degenerative change greatest in lateral compartment. 2. Osteopenia with no acute fracture. 3. Diffuse soft tissue tissue prominence. Electronically signed by: Boo Clemente MD 10/25/2018 10:56 PM EST
--- NOTE | 2018-10-25 22:59 | XR ---
EXAM DATE: 10/25/2018 10:56 PM EST AGE/SEX: 88 years / Female INDICATIONS: Swelling bilateral knees. CLINICAL DATA: This is the patient's initial encounter. Patient reports that signs and symptoms have been present for 1 day and indicates a pain score of Nonresponsive. MEDICAL/SURGICAL HISTORY: None. None. COMPARISON: No prior exams available for comparison. FINDINGS: Multiple views of the knee were obtained and demonstrate osteopenia in normal alignment. There are mi ld degenerative changes in the patellofemoral joint and lateral compartment with mild joint space los s and hypertrophic change. There is no acute fracture. There is diffuse soft tissue prominence. CONCLUSION: 1. Mild degenerative change. 2. Osteopenia with no evidence of fracture. 3. Diffuse soft tissue prominence. Electronically signed by: Boo Clemente MD 10/25/2018 10:57 PM EST
[2018-10-26] MEDS ORDERED: Sod Chloride 0.9% Inj 1,000 ML IV.SIG SCH (00:15)
[2018-10-26] MEDS ORDERED: Acetaminophen 325 MG Tablet PO PRN (00:27)
[2018-10-26] MEDS ORDERED: Bisacodyl 10 MG Supp RECTAL PRN (00:27)
[2018-10-26] MEDS ORDERED: Warfarin Consult Pharmacy OTHER PRN (00:35)
[2018-10-26 01:54] LABS: Bilirubin,Urine Negative (Negative); Clarity,Urine Clear (Clear); Color,Urine Yellow (Yellw/Straw); Glucose,Urine (UA) 100 mg/dL (Negative); Leukocyte Esterase,Urine Negative (Negative); Nitrite,Urine Negative (Negative); Specific Gravity,Urine Greater/Equal 1.030 (1.002-1.035); Urobilinogen,Urine 0.2 mg/dL (Less than 2)
[2018-10-26 01:59] LABS: INR 1.1 Ratio; Prothrombin Time 11.2 sec (9.8-11.6)
[2018-10-26 02:16] LABS: Amorphous Sediment,Urine Few /hpf; Bacteria,Urine Occasional /hpf; Squamous Epithelial Cell,Urine 0-5 /hpf (0-5); WBC,Urine 0-5 /hpf (0-5)
[2018-10-26] MEDS: Sod Chloride 0.9% Inj 1,000 ML IV.CONT SCH ×2 (03:20→11:44)
[2018-10-26 03:51] LABS: Troponin I 0.03 ng/mL (0.02-0.05)
[2018-10-26 04:03] LABS: CKMB Percent 0.6 % (0.0-4.0); Creatine Kinase MB 7.3 ng/mL (0.5-3.6)
[2018-10-26 05:12] LABS: CKMB Percent 0.5 % (0.0-4.0); Creatine Kinase MB 7.9 ng/mL (0.5-3.6)
[2018-10-26 06:56] LABS: Troponin I 0.02 ng/mL (0.02-0.05)
[2018-10-26 07:20] LABS: CKMB Percent 0.6 % (0.0-4.0); Creatine Kinase MB 7.2 ng/mL (0.5-3.6)
--- NOTE | 2018-10-26 09:24 | P.HP ---
History of Present Illness Primary Care Physician: Leandro Lipscomb MD Chief Complaint: Fall x 2 at home, rhabdo History of Present Illness: This is an 88-year-old female patient with no medical history of hypertension and history of DVT on Eliquis who presented to the ED from home status post fall x2. Patient states that while attempting to get out of bed she slipped to the floor, she states that she was on the floor for roughly 12 hours, was able to scoot herself to the phone and eventually get help. She states that she does have some knee weakness secondary to chronic arthritis, she denies any lightheadedness or dizziness. Denies any hitting her head or any loss of consciousness. Patient does have a history of right leg DVT, is on Eliquis. Does not follow with a demi chef. PCP is Dr. Lipscomb, seen 6 weeks ago with no changes to her medications. Patient does live at home alone, is able to perform all ADLs for herself, has RN to visit her twice weekly. There is any recent illness including fever, chills, cough, headache, chest pain, abdominal, diarrhea. Has been eating and drinking. Presented with CPK in 1600s. - Diagnosis (1) Fall at home (2) Rhabdomyolysis Review of Systems All other systems reviewed negative except as stated in HPI PMFSH - History History Provided By: Patient - Medical History Medical History: Medical History (Last Reviewed 10/26/18 @ 10:26 by Jadyn Hernandez) DVT (deep venous thrombosis) HTN (hypertension) - Surgical History Surgical History: Surgical History (Last Reviewed 10/26/18 @ 10:26 by Jadyn Hernandez) Vascular abnormality (Acute) - Family History Family History: Family History (Last Updated 10/26/18 @ 10:27 by Jadyn Hernandez) Other Family history non-contributory - Social History I have reviewed the patient's Social History: Yes - Tobacco History Second Hand Smoke Exposure: No Tobacco Use In Past 30 Days: No Smoking Status: Former smoker Tobacco Type: Cigarettes - Alcohol History How Often Do You Have a Drink Containing Alcohol: Never - Substance Use History Substance History: No History of Abuse - Travel History Recent Travel in the [place] Within the Last 8 Weeks: No Recent Travel Out of the Country Within the Last 8 Weeks: No - Immunization History Tetanus Immunization: <5 Years Hx Influenza Vaccine This Season: No Medications and Allergies Active Medications: Active Medications Acetaminophen (Tylenol) 650 mg PO Q4H PRN PRN Reason: Temp > 100.4 Al Hydroxide/Mg Hydroxide (Milk Of Magnesia Liq) 30 ml PO Q12H PRN PRN Reason: Mild Constipation Bisacodyl (Dulcolax Supp) 10 mg RECTAL DAILY PRN PRN Reason: SEVERE CONSITIPATION Sodium Chloride (Ns Inj) 1,000 mls @ 100 mls/hr IV.CONT .Q10H [facility] Last Admin: 10/26/18 03:20 Dose: 100 mls/hr Lactulose (Lactulose Liq) 30 ml PO DAILY PRN PRN Reason: SEVERE CONSITIPATION Ondansetron HCl (Zofran Inj) 4 mg IV.PUSH Q6H PRN PRN Reason: NAUSEA OR VOMITING Pharmacy Profile Note (Coumadin Consult Pharmacy) 1 each OTHER UNSCH PRN PRN Reason: PHARMACY DOCUMENTATION Sennosides (Senokot) 17.2 mg PO Q12H PRN PRN Reason: Moderate Constipation Sodium Chloride (Ns Flush) 2 ml IV.FLUSH BID [facility] Last Admin: 10/26/18 08:23 Dose: Not Given Sodium Chloride (Ns Flush) 2 ml IV.FLUSH PRN PRN PRN Reason: FLUSH AFTER USING IV ACCESS Allergies Allergy/AdvReac Type Severity Reaction Status Date / Time penicillin G Allergy Severe "VIOLENT Verified 06/23/18 14:34 REACTION" Home Medications Medication Instructions Recorded Confirmed Type losartan 25 mg PO DAILY 06/23/18 10/25/18 History Exam Vital signs: Vital Signs 10/25/18 21:29 10/25/18 23:54 10/26/18 04:00 Temperature 97.6 F 97.5 F L Pulse Rate 84 87 89 Respiratory Rate 18 16 18 Blood Pressure 122/52 L 118/56 L 113/54 L Pulse Oximetry 98 100 96 10/26/18 08:00 Temperature 97.8 F Pulse Rate 92 H Respiratory Rate 20 Blood Pressure 124/58 L Pulse Oximetry 96 Intake & Output 10/25/18 10/26/18 10/26/18 18:59 06:59 18:59 Intake Total 1000 / 1000 Balance 1000 / 1000 Weight 93.1 kg Intake: IV 1000 / 1000 NS Inj 1,000 ML @ 1000 mls/hr 1000 / 1000 IV.SIG BOLUS [facility] Rx#:[id number] Other: Weight On Admission 92.9 kg Narrative: GENERAL: Well-developed, well-nourished elderly female patient in [place]. SKIN: Warm and dry. No rash. HEAD: Normocephalic. Atraumatic. EYES: Pupils equal and round. No scleral icterus. No injection or drainage. ENT: No nasal bleeding or discharge. Mucous membranes pink and moist. NECK: Supple. Trachea midline. CARDIOVASCULAR: Regular rate and rhythm. S1, S2 noted. No murmur appreciated. RESPIRATORY: No accessory muscle use. Clear to auscultation. Breath sounds equal bilaterally. GASTROINTESTINAL: Abdomen soft, non-tender, nondistended. Normoactive bowel sounds x4. MUSCULOSKELETAL: No obvious deformities. Extremities without clubbing, cyanosis , or edema. RIGHT LOWER EXTREMITY: Second digit amputation. Appears to be chronic peripheral artery disease, erythema noted. no edema. no pain to palpation. NEUROLOGICAL: Awake and alert. No obvious cranial nerve deficits. Motor grossly within normal limits. 5/5 muscle strength in bilateral upper and lower extremities. Normal speech. PSYCHIATRIC: Appropriate mood and affect; insight and judgment normal. Results - Labs CBC & Chem 7: 10/25/18 21:58 10/25/18 21:58 Labs: Laboratory Results - last 24 hr 10/25/1818 10/25/18 21:58 21:58 21:58 CBC w Diff Auto diff final WBC 12.0 H RBC 3.27 L Hgb 12.0 Hct 36.0 MCV 110.1 H MCH 36.6 H MCHC 33.2 RDW 19.4 H Plt Count 316 MPV 7.4 Neut % (Auto) 82.7 H Lymph % (Auto) 9.4 [place] % (Auto) 7.4 Eos % (Auto) 0.2 Baso % (Auto) 0.3 Neut # (Auto) 10.0 H Lymph # (Auto) 1.1 [place] # (Auto) 0.9 Eos # (Auto) 0.0 Baso # (Auto) 0.0 WBC Differential . Differential Comment . PT INR Sodium 140 Potassium 4.3 Chloride 106 Carbon Dioxide 25.4 Anion Gap 9 BUN 34 H Creatinine 1.20 H Estimated GFR 42 L Random Glucose 159 H Calcium 8.5 Magnesium 2.2 Total Bilirubin 1.3 H AST 65 H ALT 34 Alkaline Phosphatase 92 Total Creatine Kinase 1601 H CK-MB (CK-2) 7.9 H CK-MB (CK-2) % 0.5 Troponin I Total Protein 7.9 Albumin 3.3 L Urine Color Urine Clarity Urine pH Ur Specific [place] Urine Protein Urine Glucose (UA) Urine Ketones Urine Occult Blood Urine Nitrate Urine Bilirubin Urine Urobilinogen Ur Leukocyte Esterase Urine RBC Urine WBC Urine WBC Clumps Ur Squamous Epith Cells Amorphous Sediment Urine Bacteria Micro UA Comment Ur Microscopic Review Urine Culture Comments 10/26/18 10/26/18 10/26/18 00:30 01:00 02:15 CBC w Diff WBC RBC Hgb Hct MCV MCH MCHC RDW Plt Count MPV Neut % (Auto) Lymph % (Auto) [place] % (Auto) Eos % (Auto) Baso % (Auto) Neut # (Auto) Lymph # (Auto) [place] # (Auto) Eos # (Auto) Baso # (Auto) WBC Differential Differential Comment PT 11.2 INR 1.1 Sodium Potassium Chloride Carbon Dioxide Anion Gap BUN Creatinine Estimated GFR Random Glucose Calcium Magnesium Total Bilirubin AST ALT Alkaline Phosphatase Total Creatine Kinase 1232 H CK-MB (CK-2) 7.3 H CK-MB (CK-2) % 0.6 Troponin I 0.03 Total Protein Albumin Urine Color Yellow Urine Clarity Clear Urine pH 5.0 Ur Specific [place] Greater/equal 1.030 Urine Protein Negative Urine Glucose (UA) 100 H Urine Ketones Negative Urine Occult Blood Large H Urine Nitrate Negative Urine Bilirubin Negative Urine Urobilinogen 0.2 Ur Leukocyte Esterase Negative Urine RBC 4-15 H Urine WBC 0-5 Urine WBC Clumps Few H Ur Squamous Epith Cells 0-5 Amorphous Sediment Few H Urine Bacteria Occasional H Micro UA Comment Culture indicated Ur Microscopic Review Microscopic reviewed Urine Culture Comments Culture indicated 10/26/18 05:00 CBC w Diff WBC RBC Hgb Hct MCV MCH MCHC RDW Plt Count MPV Neut % (Auto) Lymph % (Auto) [place] % (Auto) Eos % (Auto) Baso % (Auto) Neut # (Auto) Lymph # (Auto) [place] # (Auto) Eos # (Auto) Baso # (Auto) WBC Differential Differential Comment PT INR Sodium Potassium Chloride Carbon Dioxide Anion Gap BUN Creatinine Estimated GFR Random Glucose Calcium Magnesium Total Bilirubin AST ALT Alkaline Phosphatase Total Creatine Kinase 1256 H CK-MB (CK-2) 7.2 H CK-MB (CK-2) % 0.6 Troponin I 0.02 Total Protein Albumin Urine Color Urine Clarity Urine pH Ur Specific [place] Urine Protein Urine Glucose (UA) Urine Ketones Urine Occult Blood Urine Nitrate Urine Bilirubin Urine Urobilinogen Ur Leukocyte Esterase Urine RBC Urine WBC Urine WBC Clumps Ur Squamous Epith Cells Amorphous Sediment Urine Bacteria Micro UA Comment Ur Microscopic Review Urine Culture Comments - Imaging Impressions Knee X-Ray 10/25/18 21:39 CONCLUSION: 1. Mild degenerative change. 2. Osteopenia with no evidence of fracture. 3. Diffuse soft tissue prominence. Knee X-Ray 10/25/18 21:39 CONCLUSION: 1. 3 compartment degenerative change greatest in lateral compartment. 2. Osteopenia with no acute fracture. 3. Diffuse soft tissue tissue prominence. Pelvis X-Ray 10/25/18 21:39 CONCLUSION: 1. Mild degenerative change in the left hip. 2. Osteopenia with no acute fracture. 3. Status post right hip arthroplasty. 4. Degenerative disc change and scoliosis in the lumbar spine. Caprini VTE Risk Assessment Caprini VTE Risk Assessment: Moderate/High Risk (score >= 2) Caprini Risk Assessment Model: Point Value = 1 Point Value = 2 Point Value = 3 Point Value = 5 Age 41-60 Minor surgery BMI > 25 kg/m2 Swollen legs Varicose veins or History of unexplained or recurrent spontaneous Oral contraceptives or hormone replacement Sepsis (< 1 month) Serious lung disease, including pneumonia (< 1 month) Abnormal pulmonary function Acute myocardial infarction Congestive heart failure (< 1 month) History of inflammatory bowel disease Medical patient at bed rest Age 61-74 Arthroscopic surgery Major open surgery (> 45 min) Laparoscopic surgery (> 45 min) Malignancy Confined to bed (> 72 hours) Immobilizing plaster cast Central venous access Age >= 75 History of VTE Family history of VTE Factor V Leiden Prothrombin [id number] Lupus anticoagulant Anticardiolipin antibodies Elevated serum homocysteine Heparin-induced thrombocytopenia Other congenital or acquired thrombophilia Stroke (< 1 month) Elective arthroplasty Hip, pelvis, or leg fracture Acute spinal cord injury (< 1 month) Prophylaxis Regimen: Total Risk Factor Score Risk Level Prophylaxis Regimen 0-1 Low Early ambulation 2 Moderate Order ONE of the following: *Sequential Compression Device (SCD) *Heparin 5000 units SQ BID 3-4 Higher Order ONE of the following medications: *Heparin 5000 units SQ TID *Enoxaparin/Lovenox 40 mg SQ daily (WT < 150 kg, CrCl > 30 mL/min) *Enoxaparin/Lovenox 30 mg SQ daily (WT < 150 kg, CrCl > 10-29 mL/min) *Enoxaparin/Lovenox 30 mg SQ BID (WT < 150 kg, CrCl > 30 mL/min) AND/OR *Sequential Compression Device (SCD) 5 or more Highest Order ONE of the following medications: *Heparin 5000 units SQ TID (Preferred with Epidurals) *Enoxaparin/Lovenox 40 mg SQ daily (WT < 150 kg, CrCl > 30 mL/min) *Enoxaparin/Lovenox 30 mg SQ daily (WT < 150 kg, CrCl > 10-29 mL/min) *Enoxaparin/Lovenox 30 mg SQ BID (WT < 150 kg, CrCl > 30 mL/min) AND *Sequential Compression Device (SCD) Assessment and Plan - Assessment (1) Fall at home Code(s): W19.XXXA - Unspecified fall, initial encounter; Y92.009 - Unspecified place in unspecified non-institutional (private) residence as the place of occurrence of the external cause Status: Acute (2) Rhabdomyolysis Code(s): M62.82 - Rhabdomyolysis Status: Acute - Plan This is an 88-year-old female patient with: Rhabdomyolysis Acute kidney injury suspect secondary to above Mechanical fall x 2 at home -Patient presented with fall x2 at home, CPK 1600, creatinine 1.2. -Started on IV fluids. Ensure hydration. -Mild trend down in CPK. Continue to follow. -PT and OT consulted, evaluation pending. -Close monitoring. -Follow labs. Hypertension, chronic: Patient does not take any antihypertensives. Will follow blood pressure trend. 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 -Unsure of timing of this right lower extremity DVT. -Will attempt to obtain records from PCP. Will hold Eliquis for now. -Obtain right lower extremity US to rule out DVT. Abnormal UA rule out UTI -Patient does complaint of dysuria. -Will start on Cipro for now. -Follow urine culture. Does have mild leukocytosis, may be secondary to presence of UTI. DVT Prophylaxis: SCDs once right lower ext DVT resulted and negative for DVT.
--- NOTE | 2018-10-26 11:40 | US ---
EXAM DATE: 10/26/2018 11:32 AM EST AGE/SEX: 88 years / Female INDICATIONS: Right leg redness. Status post fall. History of prior deep venous thrombosis in poplit eal and peroneal veins 4 months ago. CLINICAL DATA: This is the patient's initial encounter. Patient reports that signs and symptoms have been present for 1 day and indicates a pain score of 0/10. MEDICAL/SURGICAL HISTORY: . Hypertension. Redness. . Vascular abnormality. COMPARISON: [facility], US VENOUS DOPPLER LEG RIGHT, 06/23/2018. . TECHNIQUE: Venous ultrasound of both lower extremities was performed from the inguinal ligament to t he proximal calf. Real-time, color Doppler and spectral tracing, compression and augmentation techni ques were used. FINDINGS: Visualization is again limited due to the patient's body habitus. There is nonocclusive th rombus in the mid femoral vein. The proximal and distal portion of the official femoral vein are taveras nt. The popliteal and calf veins appear patent as well. CONCLUSION: 1. 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 Electronically signed by: Boo Clemente MD 10/26/2018 11:38 AM EST
[2018-10-26] MEDS: Ciprofloxacin 250 MG Tablet PO SCH ×2 (11:51→21:20)
[2018-10-27] MEDS: Sod Chloride 0.9% Inj 1,000 ML IV.CONT SCH ×2 (01:15→08:12)
[2018-10-27 06:05] LABS: Potassium 3.8 meq/L (3.5-5.1)
[2018-10-27 06:07] LABS: Prothrombin Time 10.6 sec (9.8-11.6)
[2018-10-27 06:38] LABS: Baso % (Auto) 0.5 % (0.0-2.0); Eos # (Auto) 0.1 th/mm3 (0.0-0.4); Eos % (Auto) 1.9 % (0.0-4.0); Hematocrit 31.6 % (35.0-46.0); Hemoglobin 10.2 gm/dL (11.6-15.3); Lymph # (Auto) 1.9 th/mm3 (1.0-4.8); Lymph % (Auto) 24.7 % (9.0-44.0); Mean Corpuscular HGB Conc 32.2 % (32.0-36.0); Mean Corpuscular Hemoglobin 36.1 pg (27.0-34.0); Mean Corpuscular Volume 112.1 fL (80.0-100.0); Mean Platelet Volume 7.9 fL (7.0-11.0); Mono # (Auto) 0.7 th/mm3 (0.0-0.9); Mono % (Auto) 9.3 % (0.0-8.0); Neut # (Auto) 5.1 th/mm3 (1.8-7.7); Neut % (Auto) 63.6 % (16.0-70.0); Platelet Count 286 th/mm3 (150-450); Red Blood Count 2.82 mil/mm3 (4.00-5.30); White Blood Count 7.8 th/mm3 (4.0-11.0)
[2018-10-27 07:08] LABS: Calcium 7.6 mg/dL (8.5-10.1); Carbon Dioxide 23.4 meq/L (21.0-32.0)
[2018-10-27 07:54] LABS: CKMB Percent 0.4 % (0.0-4.0); Creatine Kinase MB 2.4 ng/mL (0.5-3.6)
[2018-10-27] MEDS: Ciprofloxacin 250 MG Tablet PO SCH (08:12)
--- NOTE | 2018-10-27 08:52 | P.PNIM ---
Subjective Interval history: Follow-up acute rhabdomyolysis UTI. Patient seen and examined, caregiver at bedside. Patient is doing well improved, states she feels well. Drinking and eating well without any nausea or vomiting. CK levels significantly improved this morning. Patient has been ambulating. PT and OT recommendations for rehab. Spoke with son and updated about discharge order. Will speak with case management and arranging facility that is requested by son and family. All questions answered. Will follow closely and determining plan for discharge. Vital signs stable. Afebrile. Physical Exam Vital signs: Vital Signs 10/26/18 12:00 10/26/18 16:00 10/26/18 20:00 Temperature 97.3 F L 96.3 F L 97.2 F L Pulse Rate 92 H 80 78 Respiratory Rate 20 20 18 Blood Pressure 121/61 127/60 130/59 L Pulse Oximetry 98 95 10/26/18 23:59 10/27/18 08:00 Temperature 97.8 F 97.1 F L Pulse Rate 75 77 Respiratory Rate 18 20 Blood Pressure 129/62 146/63 H Pulse Oximetry 98 96 Intake & Output 10/26/18 10/27/18 10/27/18 18:59 06:59 18:59 Intake Total 1360 / 1360 1480 / 1480 1240 / 1240 Output Total 500 / 500 400 / 400 400 / 400 Balance 860 / 860 1080 / 1080 840 / 840 Weight 93.5 kg Intake: IV 1000 / 1000 1000 / 1000 1000 / 1000 NS Inj 1,000 ML @ 100 mls/hr IV 1000 / 1000 1000 / 1000 1000 / 1000 .CONT .Q10H [facility] Rx#:[id number] Oral 360 / 360 480 / 480 240 / 240 Output: Urine 500 / 500 400 / 400 400 / 400 Narrative: GENERAL: Well-developed, well-nourished elderly female patient in [facility]. Mild confusion to what year it is. SKIN: Warm and dry. No rash. HEAD: Normocephalic. Atraumatic. EYES: Pupils equal and round. No scleral icterus. No injection or drainage. ENT: No nasal bleeding or discharge. Mucous membranes pink and moist. NECK: Supple. Trachea midline. CARDIOVASCULAR: Regular rate and rhythm. S1, S2 noted. No murmur appreciated. RESPIRATORY: No accessory muscle use. Clear to auscultation. Breath sounds equal bilaterally. GASTROINTESTINAL: Abdomen soft, non-tender, nondistended. Normoactive bowel sounds x4. MUSCULOSKELETAL: No obvious deformities. Extremities without clubbing, cyanosis , or edema. RIGHT LOWER EXTREMITY: Second digit amputation. Appears to be chronic peripheral artery disease, erythema noted. no edema. no pain to palpation. Ultrasound negative. NEUROLOGICAL: Awake and alert. No obvious cranial nerve deficits. Motor grossly within normal limits. 5/5 muscle strength in bilateral upper and lower extremities. Normal speech. - Urinary Catheter Management Straight Cath placed during this visit: yes Reason for continuing: Not indwelling catheter Insertion date: 10/26/18 Insertion time: 01:00 Results - Labs CBC & Chem 7: 10/27/18 04:30 10/27/18 04:30 Laboratory Results - last 24 hr 10/27/18 10/27/18 10/27/18 04:30 04:30 04:30 CBC w Diff Auto diff final WBC 7.8 RBC 2.82 L Hgb 10.2 L Hct 31.6 L MCV 112.1 H MCH 36.1 H MCHC 32.2 RDW 20.0 H Plt Count 286 MPV 7.9 Neut % (Auto) 63.6 Lymph % (Auto) 24.7 [place] % (Auto) 9.3 H Eos % (Auto) 1.9 Baso % (Auto) 0.5 Neut # (Auto) 5.1 Lymph # (Auto) 1.9 [place] # (Auto) 0.7 Eos # (Auto) 0.1 Baso # (Auto) 0.0 WBC Differential . Differential Comment . PT 10.6 INR 1.0 Sodium 141 Potassium 3.8 Chloride 110 H Carbon Dioxide 23.4 Anion Gap 8 BUN 24 H Creatinine 0.82 Estimated GFR 66 L Random Glucose 112 H Calcium 7.6 L D Total Creatine Kinase 569 H CK-MB (CK-2) 2.4 CK-MB (CK-2) % 0.4 - Imaging Impressions Venous Doppler Study 10/26/18 00:00 CONCLUSION: 1. 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 Assessment and Plan - Assessment (1) Fall at home Code(s): W19.XXXA - Unspecified fall, initial encounter; Y92.009 - Unspecified place in unspecified non-institutional (private) residence as the place of occurrence of the external cause Status: Acute (2) Rhabdomyolysis Code(s): M62.82 - Rhabdomyolysis Status: Acute - Plan This is an 88-year-old female patient with: Rhabdomyolysis. Improved. Acute kidney injury suspect secondary to above. Improved. Mechanical fall x 2 at home -Patient presented with fall x2 at home, CPK 1600, creatinine 1.2. All improved overnight with IVF and PO hydration. -Started on IV fluids. Will DC. -PT and OT consulted, evaluation recommendations for rehab. -Spoke with patient, caregiver and son, they are all in agreement to go to rehab. -Discharge to SNF has been placed. Son is requesting list for rehabs in the area. Case management assisting. Hypertension, chronic: Patient does not take any antihypertensives. Trend stable. 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 -It was documented in June admission that she had a right lower extremity DVT. At that time was given Coumadin and PCP switched over to Eliquis. Patient states she has been on Eliquis for some time now. -Denies any history of atrial fibrillation, reviewed records. On exam this morning patient is in NSR. -Right lower extremity DVT ruled out. Erythema actually improved overnight. Does have some chronic for artery disease. No edema. -Patient's Eliquis has been discontinued, therapy for DVT has reached over 4 months. Along with falls and possible new onset dementia, will DC anticoagulation. -Patient has close follow up with PCP and encouraged to do so. Abnormal UA rule out UTI -Patient does complaint of dysuria. -Will start on Cipro for now. Continue. -Did have mild leukocytosis on presentation, this has improved, may be secondary to presence of UTI. -Will follow urine culture upon discharge. DC to SNF. Heart healthy diet as tolerated. Activity as tolerated. RX as written. Follow up PCP.
== END 2018-10-27 16:40 ==
LOC: PHED 20:51 → PHEDA 23:40 → INTOOBSV 10-26 00:15 → PHEDA 10-26 00:15 → PH3 10-26 01:34
PROVIDERS: ADMIT Hospitalist; ATTEND Hospitalist

== ENCOUNTER 2018-10-31 08:52 | Inpatient (IN) ==
[2018-10-31] MEDS ORDERED: Sod Chloride 0.9% Inj 1,000 ML IV.CONT SCH (09:15)
--- NOTE | 2018-10-31 09:23 | ED ---
HPI General Chief Complaint: Neuro Symptoms/Deficit Stated Complaint: possible stroke Time Seen by Provider: 10/31/18 08:59 Source: patient Mode of arrival: EMS Limitations: altered mental status History of Present Illness HPI Narrative: 88-year-old female presents by ambulance with last seen normal by marcoft at 7 PM. They could not get a great answer from the maintenance supervisor 2nd shift as to when she was last seen normal. This morning when they came on shift they noticed that she was abnormal with the way that she is now. Patient cannot provide any history. Through her medication list she is currently not on blood thinners due to frequent falls. Related Data Home Medications Medication Instructions Recorded Confirmed losartan 25 mg PO DAILY 06/23/18 10/31/18 ammonium lactate [AmLactin] 1 applic TOPICAL BID 10/31/18 10/31/18 magnesium citrate [Citroma] 30 ml PO DAILY PRN 10/31/18 10/31/18 multivitamin with minerals 2 tab PO TID 10/31/18 10/31/18 [Multiple Vitamin-Minerals] Previous Rx's Medication Instructions Recorded ciprofloxacin HCl 250 mg PO Q12HR 7 Days tab 10/27/18 Allergies Allergy/AdvReac Type Severity Reaction Status Date / Time penicillin G Allergy Severe "VIOLENT Verified 10/31/18 09:01 REACTION" Review of Systems ROS Unobtainable ROS Unobtainable: unobtainable due to mental status PMFSH Medical History Medical History DVT (deep venous thrombosis) (Acute) HTN (hypertension) (Acute) Surgical History Surgical History Vascular abnormality (Acute) Family History Family History Other Family history non-contributory Social History Social History Substance History: Unable to Obtain Second Hand Smoke Exposure: No Smoking Status: Unknown if ever smoked Tobacco Type: Cigarettes How Often Do You Have a Drink Containing Alcohol: Unable to Obtain Recent Travel in [place] within the Last 8 Weeks: No Recent Out of Country Travel within the Last 8 Weeks: No Immunization History Tetanus Immunization: Unable to Assess Exam Narrative Exam Narrative: GENERAL: 88-year-old female who has a rightward gaze and hemineglect SKIN: Focused skin assessment warm/dry. HEAD: Atraumatic. Normocephalic. EYES: Pupils equal and round at 1 mm. No scleral icterus. No injection or drainage. ENT: No nasal bleeding or discharge. Mucous membranes pink and moist. NECK: Trachea midline. No JVD. CARDIOVASCULAR: Regular rate and rhythm. RESPIRATORY: No accessory muscle use. Clear to auscultation. Breath sounds equal bilaterally. GASTROINTESTINAL: Abdomen soft, non-tender, nondistended. MUSCULOSKELETAL: No obvious deformities. No clubbing. No cyanosis. NEUROLOGICAL: Patient has garbled speech, patient able to squeeze hand on the right and good strength noted to right arm and leg. Patient will not move her left arm on her own but if you lift it you can note muscle tone, her left leg she moves on her own but will not follow commands to that leg. Exam is limited Course Reevaluation(s) Reevaluation #1: When patient arrived back from CT her speech is moved and she can state her name. She still has hemineglect and cannot move left arm or follow commands with that arm. She has slight movement still to her left leg and her speech is her main change. Ativan was held to coordinate CT imaging as she was able to get through without it so this will be canceled. Reevaluation #2: will be admitted for further care, bp med given Consultations Consultation #1: dr mo agrees to aspirin and keep bp 220/110 or less and admit after initial testing. Multiple discussions throughout the case before this as well. Consultation #2: dr reyna agrees to admit Initial Documented Vital Signs Temperature 98.1 F 10/31/18 08:56 Pulse Rate 91 H 10/31/18 08:56 Respiratory Rate 18 10/31/18 08:56 Blood Pressure 207/95 H 10/31/18 08:56 Pulse Oximetry 99 10/31/18 08:56 Last Documented Vital Signs Temperature 98.1 F 10/31/18 08:56 Pulse Rate 113 H 10/31/18 09:43 Respiratory Rate 14 10/31/18 09:43 Blood Pressure 177/102 H 10/31/18 09:43 Pulse Oximetry 98 10/31/18 09:43 NIH Stroke Scale NIH Stroke Scale Level of Consciousness: 0-Alert Orientation Questions: 1-One task correct Responds to Commands: 1-One task correct Gaze Eye Movement: 1-Partial gaze palsy Visual Grialdo: 1-Partial hemianopia Facial Movement: 1-Minor facial palsy Motor Functions Arm LEFT: 2-Falls before 10 seconds Motor Functions Arm RIGHT: 0-No drift Motor Functions Leg LEFT: 0-No drift Motor Functions Leg RIGHT: 0-No drift Limb Ataxia: 1-Ataxia in one limb Sensory Loss: 0-No sensory loss Best Language: 1-Mild aphasia Articulation: 1-Mild dysarthia Extinction or Inattention Sensory: 1-Loss 1 sensory modality Total: 11 Quality Measure Queries Stroke Last date observed well: 10/30/18 Last time observed well: 19:00 Medical Decision Making MDM Narrative Medical decision making narrative: Given new protocol with last seen normal at 7 PM last night stroke alert was initiated. She is not a TPA candidate. Will closely monitor patient has high stroke scale of 17 for me currently Medical Screen Exam Complete: Yes Emergency Medical Condition: Yes Differential Diagnosis Differential Diagnosis: Stroke, bleed, seizure, mass Lab Data Lab results reviewed: Yes I reviewed the patient's lab results. Result diagrams: 10/31/18 09:05 10/31/18 09:05 Lab Results 10/31/18 10/31/18 10/31/18 Range/Units 09:03 09:05 09:05 WBC 10.0 (4.0-11.0) th/mm3 RBC 3.01 L (4.00-5.30) mil/mm3 Hgb 11.7 (11.6-15.3) gm/dL POC Hgb (Calc) (11.6-15.3) g/dL Hct 33.5 L (35.0-46.0) % POC Hct (35-46.0) % MCV 111.5 H (80.0-100.0) fL MCH 38.9 H (27.0-34.0) pg MCHC 34.9 (32.0-36.0) % RDW 19.3 H (11.6-17.2) % Plt Count 300 (150-450) th/mm3 MPV 7.3 (7.0-11.0) fL Neut % (Auto) 74.2 H (16.0-70.0) % Lymph % (Auto) 15.4 (9.0-44.0) % [place] % (Auto) 9.6 H (0.0-8.0) % Eos % (Auto) 0.4 (0.0-4.0) % Baso % (Auto) 0.4 (0.0-2.0) % Neut # (Auto) 7.4 (1.8-7.7) th/mm3 Lymph # (Auto) 1.5 (1.0-4.8) th/mm3 [place] # (Auto) 1.0 H (0.0-0.9) th/mm3 Eos # (Auto) 0.0 (0.0-0.4) th/mm3 Baso # (Auto) 0.0 (0.0-0.2) th/mm3 WBC Differential . Differential Comment Auto diff final PT 10.7 (9.8-11.6) sec INR 1.1 Ratio APTT 26.2 (23.4-31.7) sec Fibrinogen 480 H (227-377) mg/dL POC Sodium (137-144) mmol/L Sodium (136-145) meq/L POC Potassium (3.6-5.0) mmol/L Potassium (3.5-5.1) meq/L POC Chloride (102-111) mmol/L Chloride (98-107) meq/L Carbon Dioxide (21.0-32.0) meq/L Anion Gap (5-15) meq/L POC BUN (5-21) mg/dL BUN (7-18) mg/dL Creatinine (0.50-1.00) mg/dL POC Creatinine (0.6-1.3) mg/dL Estimated GFR (>89) mL/min POC Glucose 108 (68-110) mg/dl Random Glucose (74-106) mg/dL Calcium (8.5-10.1) mg/dL Total Bilirubin (0.2-1.0) mg/dL AST (15-37) U/L ALT (10-53) U/L Alkaline Phosphatase (45-117) U/L Total Creatine Kinase (26-192) U/L CK-MB (CK-2) (0.5-3.6) ng/mL CK-MB (CK-2) % (0.0-4.0) % Troponin I (0.02-0.05) ng/mL Total Protein (6.4-8.2) g/dL Albumin (3.4-5.0) g/dL Triglycerides (42-150) mg/dL Cholesterol (120-200) mg/dL LDL Cholesterol, Calc (0-99) mg/dL HDL Cholesterol (40.0-60.0) mg/dL Cholesterol/HDL Ratio Ratio Vitamin B12 (193-986) pg/mL Urine Color (Yellw/Straw) Urine Clarity (Clear) Urine pH (5.0-8.5) Ur Specific [place] (1.002-1.035) Urine Protein (Neg-Trace) mg/dL Urine Glucose (UA) (Negative) mg/dL Urine Ketones (Negative) mg/dL Urine Occult Blood (Negative) Urine Nitrate (Negative) Urine Bilirubin (Negative) Urine Urobilinogen (Less than 2) mg/dL Ur Leukocyte Esterase (Negative) Urine RBC (0-3) /hpf Urine WBC (0-5) /hpf Ur Squamous Epith Cells (0-5) /hpf Urine Bacteria (None) /hpf Hyaline Casts (0-3) /lpf Urine Mucus (Occasional) /lpf Micro UA Comment Ur Microscopic Review Urine Culture Comments Urine Opiates Screen (Neg) Ur Barbiturates Screen (Neg) Ur Amphetamines Screen (Neg) U Benzodiazepines Scrn (Neg) Urine Cocaine Screen (Neg) U Cannabinoids Screen (Neg) 10/31/18 10/31/18 10/31/18 Range/Units 09:05 09:05 09:05 WBC (4.0-11.0) th/mm3 RBC (4.00-5.30) mil/mm3 Hgb (11.6-15.3) gm/dL POC Hgb (Calc) 11.6 (11.6-15.3) g/dL Hct (35.0-46.0) % POC Hct 34.0 L (35-46.0) % MCV (80.0-100.0) fL MCH (27.0-34.0) pg MCHC (32.0-36.0) % RDW (11.6-17.2) % Plt Count (150-450) th/mm3 MPV (7.0-11.0) fL Neut % (Auto) (16.0-70.0) % Lymph % (Auto) (9.0-44.0) % [place] % (Auto) (0.0-8.0) % Eos % (Auto) (0.0-4.0) % Baso % (Auto) (0.0-2.0) % Neut # (Auto) (1.8-7.7) th/mm3 Lymph # (Auto) (1.0-4.8) th/mm3 [place] # (Auto) (0.0-0.9) th/mm3 Eos # (Auto) (0.0-0.4) th/mm3 Baso # (Auto) (0.0-0.2) th/mm3 WBC Differential Differential Comment PT (9.8-11.6) sec INR Ratio APTT (23.4-31.7) sec Fibrinogen (227-377) mg/dL POC Sodium 143 (137-144) mmol/L Sodium 140 (136-145) meq/L POC Potassium 4.1 (3.6-5.0) mmol/L Potassium 4.1 (3.5-5.1) meq/L POC Chloride 105 (102-111) mmol/L Chloride 108 H (98-107) meq/L Carbon Dioxide 26.3 (21.0-32.0) meq/L Anion Gap 6 (5-15) meq/L POC BUN 20 (5-21) mg/dL BUN 21 H (7-18) mg/dL Creatinine 0.93 (0.50-1.00) mg/dL POC Creatinine 0.8 (0.6-1.3) mg/dL Estimated GFR 57 L (>89) mL/min POC Glucose 131 H (68-110) mg/dl Random Glucose 127 H (74-106) mg/dL Calcium 8.5 (8.5-10.1) mg/dL Total Bilirubin 0.7 (0.2-1.0) mg/dL AST 31 (15-37) U/L ALT 31 (10-53) U/L Alkaline Phosphatase 71 (45-117) U/L Total Creatine Kinase 362 H (26-192) U/L CK-MB (CK-2) 3.9 H (0.5-3.6) ng/mL CK-MB (CK-2) % 1.1 (0.0-4.0) % Troponin I Less than 0.02 L (0.02-0.05) ng/mL Total Protein 7.0 D (6.4-8.2) g/dL Albumin 2.9 L (3.4-5.0) g/dL Triglycerides 85 (42-150) mg/dL Cholesterol 192 (120-200) mg/dL LDL Cholesterol, Calc 125 H (0-99) mg/dL HDL Cholesterol 50.3 (40.0-60.0) mg/dL Cholesterol/HDL Ratio 3.81 Ratio Vitamin B12 (193-986) pg/mL Urine Color (Yellw/Straw) Urine Clarity (Clear) Urine pH (5.0-8.5) Ur Specific [place] (1.002-1.035) Urine Protein (Neg-Trace) mg/dL Urine Glucose (UA) (Negative) mg/dL Urine Ketones (Negative) mg/dL Urine Occult Blood (Negative) Urine Nitrate (Negative) Urine Bilirubin (Negative) Urine Urobilinogen (Less than 2) mg/dL Ur Leukocyte Esterase (Negative) Urine RBC (0-3) /hpf Urine WBC (0-5) /hpf Ur Squamous Epith Cells (0-5) /hpf Urine Bacteria (None) /hpf Hyaline Casts (0-3) /lpf Urine Mucus (Occasional) /lpf Micro UA Comment Ur Microscopic Review Urine Culture Comments Urine Opiates Screen (Neg) Ur Barbiturates Screen (Neg) Ur Amphetamines Screen (Neg) U Benzodiazepines Scrn (Neg) Urine Cocaine Screen (Neg) U Cannabinoids Screen (Neg) 10/31/18 10/31/18 10/31/18 Range/Units 09:05 09:54 10:07 WBC (4.0-11.0) th/mm3 RBC (4.00-5.30) mil/mm3 Hgb (11.6-15.3) gm/dL POC Hgb (Calc) (11.6-15.3) g/dL Hct (35.0-46.0) % POC Hct (35-46.0) % MCV (80.0-100.0) fL MCH (27.0-34.0) pg MCHC (32.0-36.0) % RDW (11.6-17.2) % Plt Count (150-450) th/mm3 MPV (7.0-11.0) fL Neut % (Auto) (16.0-70.0) % Lymph % (Auto) (9.0-44.0) % [place] % (Auto) (0.0-8.0) % Eos % (Auto) (0.0-4.0) % Baso % (Auto) (0.0-2.0) % Neut # (Auto) (1.8-7.7) th/mm3 Lymph # (Auto) (1.0-4.8) th/mm3 [place] # (Auto) (0.0-0.9) th/mm3 Eos # (Auto) (0.0-0.4) th/mm3 Baso # (Auto) (0.0-0.2) th/mm3 WBC Differential Differential Comment PT (9.8-11.6) sec INR Ratio APTT (23.4-31.7) sec Fibrinogen (227-377) mg/dL POC Sodium (137-144) mmol/L Sodium (136-145) meq/L POC Potassium (3.6-5.0) mmol/L Potassium (3.5-5.1) meq/L POC Chloride (102-111) mmol/L Chloride (98-107) meq/L Carbon Dioxide (21.0-32.0) meq/L Anion Gap (5-15) meq/L POC BUN (5-21) mg/dL BUN (7-18) mg/dL Creatinine (0.50-1.00) mg/dL POC Creatinine (0.6-1.3) mg/dL Estimated GFR (>89) mL/min POC Glucose (68-110) mg/dl Random Glucose (74-106) mg/dL Calcium (8.5-10.1) mg/dL Total Bilirubin (0.2-1.0) mg/dL AST (15-37) U/L ALT (10-53) U/L Alkaline Phosphatase (45-117) U/L Total Creatine Kinase (26-192) U/L CK-MB (CK-2) (0.5-3.6) ng/mL CK-MB (CK-2) % (0.0-4.0) % Troponin I (0.02-0.05) ng/mL Total Protein (6.4-8.2) g/dL Albumin (3.4-5.0) g/dL Triglycerides (42-150) mg/dL Cholesterol (120-200) mg/dL LDL Cholesterol, Calc (0-99) mg/dL HDL Cholesterol (40.0-60.0) mg/dL Cholesterol/HDL Ratio Ratio Vitamin B12 Less than 60 L (193-986) pg/mL Urine Color Yellow (Yellw/Straw) Urine Clarity Hazy H (Clear) Urine pH 5.0 (5.0-8.5) Ur Specific [place] 1.024 (1.002-1.035) Urine Protein Negative (Neg-Trace) mg/dL Urine Glucose (UA) Negative (Negative) mg/dL Urine Ketones Negative (Negative) mg/dL Urine Occult Blood Small H (Negative) Urine Nitrate Negative (Negative) Urine Bilirubin Negative (Negative) Urine Urobilinogen Less than 2 (Less than 2) mg/dL Ur Leukocyte Esterase Negative (Negative) Urine RBC 1 (0-3) /hpf Urine WBC 1 (0-5) /hpf Ur Squamous Epith Cells <1 (0-5) /hpf Urine Bacteria Occasional H (None) /hpf Hyaline Casts 1 (0-3) /lpf Urine Mucus Moderate H (Occasional) /lpf Micro UA Comment Cath-culture ind Ur Microscopic Review Not Reportable Urine Culture Comments Cath-cult indicated Urine Opiates Screen Neg (Neg) Ur Barbiturates Screen Neg (Neg) Ur Amphetamines Screen Neg (Neg) U Benzodiazepines Scrn Neg (Neg) Urine Cocaine Screen Neg (Neg) U Cannabinoids Screen Neg (Neg) Imaging Data Attestation: I personally reviewed and interpreted this imaging study as follows : Radiologist's impression: Chest X-Ray 10/31/18 09:03 CONCLUSION: 1. Mild diffuse interstitial prominence consistent with mild interstitial edema. 2. Mild hazy opacity throughout the left lung. This corresponds with small pleural effusion noted on the CTA of the neck. Head CT 10/31/18 09:03 CONCLUSION: 1. No acute infarct, acute hemorrhage, midline shift or extra axial fluid collection. 2. Cerebral atrophy. 3. 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 4. Mild periventricular white matter small vessel ischemic changes bilaterally. The report was called to Dr. White at 9:43 AM on 10/31/2018. Head CTA 10/31/18 09:03 CONCLUSION: 1. Negative CTA Head. Report was called by Dr. Arroyo to Dr. Mo at 9:48 AM on 10/31/2018. Neck CTA 10/31/18 09:03 CONCLUSION: 1. No hemodynamically significant carotid or vertebral artery lesion, as above. 2. Small bilateral pleural effusions, right greater than left with mild diffuse groundglass opacities in the lung apices. Overall findings are most consistent with a pulmonary edema pattern. Discharge Plan Discharge Disposition Patient Disposition: ED Admit(ED Internal Use Only) Discharge Order Discharge Orders: ED Use Only Admit Order (Routine); Ordered 10/31/18 Ordered By: Judy White Discharge Details Diagnosis: Stroke Physicians Team ED Provider: Judy White Primary Care Provider: Leandro Lipscomb Attending Provider: Virgil Reyna Other Providers: Alexandre Mo Discharge Interventions Interventions: Vital Signs Last Done: 10/31/18 09:43 Status ED Status: Admitted Patient
[2018-10-31 09:33] LABS: Baso % (Auto) 0.4 % (0.0-2.0); Eos % (Auto) 0.4 % (0.0-4.0); Hematocrit 33.5 % (35.0-46.0); Hemoglobin 11.7 gm/dL (11.6-15.3); Lymph # (Auto) 1.5 th/mm3 (1.0-4.8); Lymph % (Auto) 15.4 % (9.0-44.0); Mean Corpuscular HGB Conc 34.9 % (32.0-36.0); Mean Corpuscular Hemoglobin 38.9 pg (27.0-34.0); Mean Corpuscular Volume 111.5 fL (80.0-100.0); Mean Platelet Volume 7.3 fL (7.0-11.0); Mono % (Auto) 9.6 % (0.0-8.0); Neut # (Auto) 7.4 th/mm3 (1.8-7.7); Neut % (Auto) 74.2 % (16.0-70.0); Platelet Count 300 th/mm3 (150-450); Red Blood Count 3.01 mil/mm3 (4.00-5.30); Red Cell Distribution Width 19.3 % (11.6-17.2)
--- NOTE | 2018-10-31 09:45 | CT ---
EXAM DATE: 10/31/2018 9:39 AM EST AGE/SEX: 88 years / Female INDICATIONS: Stroke alert, right gaze, right facial droop, left upper extremity weakness. CLINICAL DATA: This is the patient's initial encounter. Patient reports that signs and symptoms have been present for 1 day and indicates a pain score of Nonresponsive. MEDICAL/SURGICAL HISTORY: Non-responsive. Non-responsive. RADIATION DOSE: 47.29 CTDI (mGy) ; Patient motion COMPARISON: No prior exams available for comparison. TECHNIQUE: CT of the head without contrast. Using automated exposure control and adjustment of the mA and/or kV according to patient size, radiation dose was kept as low as reasonably achievable to ob tain optimal diagnostic quality images. DICOM format image data is available electronically for revi ew and comparison. FINDINGS: Cerebrum: Cerebral atrophy is noted. Scattered old lacunar infarcts are noted within the bilateral b anastasia ganglia. Mild periventricular white matter small vessel ischemic changes are noted bilaterally. There is no acute infarct, acute hemorrhage, midline shift or extra-axial collection. Posterior Fossa: The cerebellum and brainstem are intact. The 4th ventricle is midline. The cerebe llopontine angle is unremarkable. Extracranial: The visualized portion of the orbits is intact. Skull: The calvaria is intact. No evidence of skull fracture. CONCLUSION: 1. No acute infarct, acute hemorrhage, midline shift or extra axial fluid collection. 2. Cerebral atrophy. 3. 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 4. Mild periventricular white matter small vessel ischemic changes bilaterally. The report was called to Dr. White at 9:43 AM on 10/31/2018. Electronically signed by: Doron Arroyo MD Board Certified Radiologist 10/31/2018 9:44 AM EST
[2018-10-31 09:46] LABS: Activated Partial Thrombo Time 26.2 sec (23.4-31.7); INR 1.1 Ratio; Prothrombin Time 10.7 sec (9.8-11.6)
--- NOTE | 2018-10-31 09:46 | P.CONNEU ---
History of Present Illness Service: Neurology Primary Care Provider: Leandro Lipscomb MD Chief Complaint: Stroke History of Present Illness: 88-year-old female admitted for left-sided weakness. Onset of symptoms suspected last night none IV TPA window. CT brain scan reviewed no acute lesion. Appears to have possible subacute or chronic high right hemispheric infarct. Was admitted to the hospital 10/27/2018 was treated for rhabdomyolysis. She was on Eliquis at that time but it was discontinued by the hospitalist service. 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 - Medical History Medical History: Medical History (Last Reviewed 10/31/18 @ 09:21 by Judy White MD) DVT (deep venous thrombosis) HTN (hypertension) - Surgical History Surgical History: Surgical History (Last Reviewed 10/31/18 @ 09:21 by Judy White MD) Vascular abnormality (Acute) - Family History Family History: Family History (Last Reviewed 10/31/18 @ 09:21 by Judy White MD) Other Family history non-contributory - Tobacco History Second Hand Smoke Exposure: No Smoking Status: Unknown if ever smoked Tobacco Type: Cigarettes - Alcohol History How Often Do You Have a Drink Containing Alcohol: Unable to Obtain - Substance Use History Substance History: Unable to Obtain - Travel History Recent Travel in the [place] Within the Last 8 Weeks: No Recent Travel Out of the Country Within the Last 8 Weeks: No - Immunization History Tetanus Immunization: Unable to Assess Medications and Allergies Active Medications: Active Medications Sodium Chloride (Ns Inj) 1,000 mls @ 70 mls/hr IV.CONT .[id number] [facility] Last Admin: 10/31/18 09:11 Dose: 70 mls/hr Allergies Allergy/AdvReac Type Severity Reaction Status Date / Time penicillin G Allergy Severe "VIOLENT Verified 10/31/18 09:01 REACTION" Home Medications Medication Instructions Recorded Confirmed Type losartan 25 mg PO DAILY 06/23/18 10/31/18 History ammonium lactate [AmLactin] 1 applic TOPICAL BID 10/31/18 10/31/18 History magnesium citrate [Citroma] 30 ml PO DAILY PRN 10/31/18 10/31/18 History multivitamin with minerals 2 tab PO TID 10/31/18 10/31/18 History [Multiple Vitamin-Minerals] Exam Vital signs: Vital Signs 10/31/18 08:56 10/31/18 09:06 10/31/18 09:08 Temperature 98.1 F Pulse Rate 91 H 92 H Respiratory Rate 18 Blood Pressure 207/95 H Pulse Oximetry 99 96 10/31/18 09:33 Temperature Pulse Rate 85 Respiratory Rate 16 Blood Pressure 177/102 H Pulse Oximetry 96 Intake & Output 10/30/18 10/31/18 10/31/18 18:59 06:59 18:59 Weight 90.718 kg Narrative: GENERAL: in NAD, SKIN: Warm and dry. HEAD: Atraumatic. Normocephalic. EYES: Pupils equal and round. No scleral icterus. ENT: No nasal bleeding or discharge. NECK: Trachea midline. No JVD. CARDIOVASCULAR: Regular rate and rhythm. RESPIRATORY: No accessory muscle use. GASTROINTESTINAL: Abdomen soft, non-tender, nondistended. MUSCULOSKELETAL: Extremities without clubbing, cyanosis, or edema. NEUROLOGICAL: Awake and alert. Strong right gaze deviation right head tilt, left homonymous hemianopsia left hemineglect, left upper extremity 1-2 out of 5 with increased tone, some withdrawal left lower examinee right upper right lower extremity spontaneous PSYCHIATRIC: Calm - Constitutional no acute distress - Routine HEENT Exam Head: Present: normocephalic Results - Labs CBC & Chem 7: 10/31/18 09:05 10/31/18 09:05 Labs: Laboratory Results - last 24 hr 10/31/18 10/31/18 10/31/18 09:03 09:05 09:05 WBC 10.0 RBC 3.01 L Hgb 11.7 POC Hgb (Calc) 11.6 Hct 33.5 L POC Hct 34.0 L MCV 111.5 H MCH 38.9 H MCHC 34.9 RDW 19.3 H Plt Count 300 MPV 7.3 Neut % (Auto) 74.2 H Lymph % (Auto) 15.4 [place] % (Auto) 9.6 H Eos % (Auto) 0.4 Baso % (Auto) 0.4 Neut # (Auto) 7.4 Lymph # (Auto) 1.5 [place] # (Auto) 1.0 H Eos # (Auto) 0.0 Baso # (Auto) 0.0 WBC Differential . Differential Comment Auto diff final POC Sodium 143 POC Potassium 4.1 POC Chloride 105 POC BUN 20 POC Creatinine 0.8 POC Glucose 108 131 H Review/Management - Diagnosis (1) Acute right MCA stroke Code(s): I63.511 - Cerebral infarction due to unspecified occlusion or stenosis of right middle cerebral artery Status: Acute Current Visit: Yes (2) Hypertension Code(s): I10 - Essential (primary) hypertension Status: Acute Current Visit : Yes - Review/Management Plan: Probable right MCA stroke Current EKG showing possible atrial fibrillation although a lot of baseline artifact Therefore cardioembolic event is a possibility CTA brain and carotids negative for vaso-occlusive disease per radiology Recommendation Admission Aspirin suppository Therapy MRI brain noncontrast 2D echo Fasting lipids H frequency SCDs We will look at reinitiation of oral anticoagulation depending on clinical status and results of imaging
[2018-10-31] MEDS ORDERED: Aspirin 300 MG Supp RECTAL ONE (09:50)
--- NOTE | 2018-10-31 09:51 | CT ---
EXAM DATE: 10/31/2018 9:45 AM EST AGE/SEX: 88 years / Female INDICATIONS: Stroke alert, right facial droop, right gaze, left upper extremity weakness. CLINICAL DATA: This is the patient's initial encounter. Patient reports that signs and symptoms have been present for 1 day and indicates a pain score of Nonresponsive. MEDICAL/SURGICAL HISTORY: Non-responsive. Non-responsive. RADIATION DOSE: 20.18 CTDI (mGy) ; Combined studies COMPARISON: [facility] [place], CTA NECK W CONTRAST W 3D, 10/31/2018. [facility] [place], CT HEAD W/O CONTRAST, 10/31/2018. . TECHNIQUE: Volumetric scanning was performed using a multi-row detector CT scanner during bolus infu esequiel of 97 ml Visipaque 320 (iodixanol) nonionic water-soluble contrast as a cumulative dose for mul tiple exams. The data was post processed with a variety of visualization algorithms including full volume maximum intensity projection, multi-planar sliding thin slab reformation, curved planar reform ation, and surface rendering techniques. Using automated exposure control and adjustment of the mA a nd/or kV according to patient size, radiation dose was kept as low as reasonably achievable to obtain optimal diagnostic quality images. DICOM format image data is available electronically for review a nd comparison. FINDINGS: There is excellent visualization of the major intracranial arteries out to the second-order branch ve ssels. There is no evidence for aneurysm, vessel truncation or stenosis, and no evidence for vascula r malformation. There is a patent right posterior communicating artery which fills the right posterior cerebral arter y. CONCLUSION: 1. Negative CTA Head. Report was called by Dr. Arroyo to Dr. Dominique at 9:48 AM on 10/31/2018. Electronically signed by: Doron Arroyo MD Board Certified Radiologist 10/31/2018 9:50 AM EST
[2018-10-31 09:54] LABS: Creatine Kinase 362 U/L (26-192)
--- NOTE | 2018-10-31 09:54 | XR ---
EXAM DATE: 10/31/2018 9:50 AM EST AGE/SEX: 88 years / Female INDICATIONS: Stroke alert. CLINICAL DATA: This is the patient's initial encounter. Patient reports that signs and symptoms have been present for 1 day and indicates a pain score of Nonresponsive. MEDICAL/SURGICAL HISTORY: Non-responsive. Non-responsive. COMPARISON: [facility] – [place], CTA NECK W CONTRAST W 3D, 10/31/2018. . FINDINGS: Mild diffuse interstitial prominence with hazy opacities throughout the left lung which may be positi onal. Cardiomegaly mediastinal contours are within normal limits given portable technique. The main o f the exam is unchanged. CONCLUSION: 1. Mild diffuse interstitial prominence consistent with mild interstitial edema. 2. Mild hazy opacity throughout the left lung. This corresponds with small pleural effusion noted on the CTA of the neck. Electronically signed by: Chace Murphy MD Board Certified Radiologist 10/31/2018 9:53 AM XIMENA Carreon
[2018-10-31 09:58] LABS: Albumin 2.9 g/dL (3.4-5.0); Anion Gap 6 meq/L (5-15); Blood Urea Nitrogen 21 mg/dL (7-18); Calcium 8.5 mg/dL (8.5-10.1); Carbon Dioxide 26.3 meq/L (21.0-32.0); Chloride 108 meq/L (98-107); Glomerular Filtration Rate 57 mL/min (>89); Glucose,Random 127 mg/dL (74-106); Potassium 4.1 meq/L (3.5-5.1); Sodium 140 meq/L (136-145)
[2018-10-31 09:59] LABS: Alanine Aminotransferase 31 U/L (10-53)
--- NOTE | 2018-10-31 10:05 | CT ---
EXAM DATE: 10/31/2018 9:52 AM EST AGE/SEX: 88 years / Female INDICATIONS: Stroke alert, right facial droop, right gaze, left upper extremity weakness. CLINICAL DATA: This is the patient's initial encounter. Patient reports that signs and symptoms have been present for 1 day and indicates a pain score of Nonresponsive. MEDICAL/SURGICAL HISTORY: Non-responsive. Non-responsive. RADIATION DOSE: 20.18 CTDI (mGy) ; Combined studies COMPARISON: No prior exams available for comparison. TECHNIQUE: Volumetric scanning was performed using a multirow detector CT scanner during bolus infus ion of 97 ml Visipaque 320 (iodixanol) nonionic water-soluble contrast as a cumulative dose for mult iple exams. The data was postprocessed with a variety of visualization algorithms including full-vo lume maximum intensity projection, multiplanar sliding thin-slab reformation, curved-planar reformati on, and surface-rendering techniques. Using automated exposure control and adjustment of the mA and/ or kV according to patient size, radiation dose was kept as low as reasonably achievable to obtain op timal diagnostic quality images. DICOM format image data is available electronically for review and comparison. Percent stenosis is calculated using the diameter of the stenotic region over the diameter of the nor mal distal internal carotid artery. FINDINGS: Aortic Arch: There is a three-vessel origin of the great vessels from the aorta. No evidence of ost ial narrowing Right Carotid: The common carotid artery is intact. Minimal mixed plaque extending from the distal b ulb to the origin of the internal carotid artery. Resultant less than 10% stenosis. Internal carotid artery is otherwise patent to the skull base. The external carotid artery is intact. Left Carotid: The common carotid artery is intact. Minimal mixed plaque extending from the distal b ulb to the origin of the internal carotid artery. Resultant less than 10% stenosis. Internal carotid artery is otherwise patent to the skull base. The external carotid artery is intact. Vertebrals: Dominant right vertebral artery. No definitive focal hemodynamic stenosis although tortu osity in the mid to distal left vertebral artery does preclude definitive evaluation in certain focal segments. General Findings: Visualized lung apices demonstrate small bilateral pleural effusions, right greater than left. Mild diffuse groundglass opacities in the apices bilaterally. Thyroid appears unremarkabl e by CT. Degenerative spondylosis of the lower cervical spine. CONCLUSION: 1. No hemodynamically significant carotid or vertebral artery lesion, as above. 2. Small bilateral pleural effusions, right greater than left with mild diffuse groundglass opacitie s in the lung apices. Overall findings are most consistent with a pulmonary edema pattern. Electronically signed by: Chace Murphy MD Board Certified Radiologist 10/31/2018 10:[address]
[2018-10-31 10:06] LABS: Alkaline Phosphatase 71 U/L (45-117); Aspartate Aminotransferase 31 U/L (15-37); CKMB Percent 1.1 % (0.0-4.0); Creatine Kinase MB 3.9 ng/mL (0.5-3.6)
[2018-10-31 10:08] LABS: Bacteria,Urine Occasional /hpf; Bilirubin,Urine Negative (Negative); Clarity,Urine Hazy (Clear); Color,Urine Yellow (Yellw/Straw); Glucose,Urine (UA) Negative (Negative); Hyaline Casts,Urine 1 /lpf (0-3); Leukocyte Esterase,Urine Negative (Negative); Mucus,Urine Moderate /lpf (Occasional); Nitrite,Urine Negative (Negative); Specific Gravity,Urine 1.024 (1.002-1.035); Squamous Epithelial Cell,Urine <1 /hpf (0-5)
[2018-10-31 10:22] LABS: Amphetamine Screen,Urine Neg (Neg); Barbiturate Screen,Urine Neg (Neg); Cannabinoid Screen,Urine Neg (Neg); Cocaine Screen,Urine Neg (Neg)
[2018-10-31 10:24] LABS: Chol/HDL Ratio 3.81 Ratio; HDL Cholesterol 50.3 mg/dL (40.0-60.0)
[2018-10-31 10:26] LABS: Opiate Screen,Urine Neg (Neg)
[2018-10-31] MEDS ORDERED: Morphine Sulfate Inj 2 MG/ML Vial IV.PUSH PRN (10:46)
[2018-10-31] MEDS ORDERED: Morphine Inj 4 MG/ML Vial IV.PUSH PRN (10:46)
[2018-10-31] MEDS: Sod Chloride 0.9% Inj 1,000 ML IV.CONT SCH ×2 (10:58→20:38)
--- NOTE | 2018-10-31 12:01 | MR ---
EXAM DATE: 10/31/2018 11:54 AM EST AGE/SEX: 88 years / Female INDICATIONS: Left sided weakness. CLINICAL DATA: This is the patient's initial encounter. Patient reports that signs and symptoms have been present for 1 day and indicates a pain score of 0/10. MEDICAL/SURGICAL HISTORY: Diabetes mellitus type II. A fib . hip replacement COMPARISON: [facility] [place] [facility] [place] HEAD W/O CONTRAST, 10/31/2018. . TECHNIQUE: Multiplanar, multisequence examination of the brain was performed without contrast. FINDINGS: Image quality is significantly degraded by motion artifact. Imaging sequences were altered to improve image quality. Cerebrum: There is moderate generalized atrophy. Ventricular system is prominent but within the rang e of normal given the degree of atrophy. No midline shift, mass lesion, or hemorrhage. No extraaxia l fluid collections are seen. The pituitary gland and suprasellar cistern are normal in configuratio n. White Matter: There is mild periventricular and subcortical white matter signal change. Posterior Fossa: The cerebellum and brainstem demonstrate no acute abnormality. The 4th ventricle is midline. The cerebellopontine angle is within normal limits. The cerebellar tonsils are normal in p osition. Diffusion Imaging: There is abnormal restricted diffusion in the right frontoparietal high and mid c onvexity extending inferiorly along the posterior insula. Multifocal areas of restricted diffusion ar e also present in the right frontal high and mid convexity. Extracranial: The visualized sinuses are clear. CONCLUSION: 1. Multifocal areas of restricted diffusion secondary to recent ischemia. These are located in the r ight frontoparietal region and more anteriorly in the right frontal high and mid convexity. 2. Chronic findings include generalized atrophy and chronic periventricular white matter change. Electronically signed by: Kirill Bhandari MD Board Certified Radiologist 10/31/2018 12:00 PM EST
--- NOTE | 2018-10-31 12:49 | P.HPIM ---
History of Present Illness Primary Care Physician: Leandro Lipscomb MD Chief Complaint: Acute CVA History of Present Illness: Mrs. Davis is an 88 year old female. She has been sent here from her care facility due to an acute onset of altered mental status. She has a rightward gaze with left hemiplegia and was unable to communicate. At this point she can provide no history. Clinically it appears that she has had a CVA, probably on the right side. Blood pressures are elevated, likely responsive. No further history can be obtained. Based on previous admits she has a prior history of DVT and rhabdomyolysis. Hypertension is present at baseline. Diagnosis (1) Acute right MCA stroke: (2) Hypertension: Inpatient Certification Inpatient Certification: I certify that the inpatient services were ordered in accordance with Medicare regulations governing the order. This includes certification that hospital inpatient services are reasonable and necessary and in the case of services not specified as inpatient-only under 42 CFR 419.22(n), that they are appropriately provided as inpatient services in accordance to with the 2-midnight benchmark under 43 CFR 412.3(e) Estimated Total Length of Stay (Days): 4 Plans for Post Hospital Care: SNF Review of Systems ROS Unobtainable: unobtainable due to mental condition and unobtainable due to mental status PMFSH Medical History Medical History DVT (deep venous thrombosis) (Acute) HTN (hypertension) (Acute) Surgical History Surgical History Vascular abnormality (Acute) Family History Family History Other Family history non-contributory Osteoarthritis Social History Social History Substance History: Unable to Obtain Second Hand Smoke Exposure: No Smoking Status: Unknown if ever smoked Tobacco Type: Cigarettes How Often Do You Have a Drink Containing Alcohol: Unable to Obtain Recent Travel in [facility] within the Last 8 Weeks: No Recent Out of Country Travel within the Last 8 Weeks: No Immunization History Tetanus Immunization: Unable to Assess Medications and Allergies Allergies Allergy/AdvReac Type Severity Reaction Status Date / Time penicillin G Allergy Severe "VIOLENT Verified 10/31/18 09:01 REACTION" Home Medications Medication Instructions Recorded Confirmed Type losartan 25 mg PO DAILY 06/23/18 10/31/18 History ammonium lactate [AmLactin] 1 applic TOPICAL BID 10/31/18 10/31/18 History magnesium citrate [Citroma] 30 ml PO DAILY PRN 10/31/18 10/31/18 History multivitamin with minerals 2 tab PO TID 10/31/18 10/31/18 History [Multiple Vitamin-Minerals] Active Medications: Active Medications Enalaprilat (Vasotec Inj) 1.25 mg IV.PUSH Q6H PRN PRN Reason: Systolic BP > 220 mmHg Sodium Chloride (Ns Inj) 1,000 mls @ 80 mls/hr IV.CONT .[id number] MICHELLE Last Admin: 10/31/18 10:58 Dose: 80 mls/hr Morphine Sulfate (Morphine Inj) 2 mg IV.PUSH Q4H PRN PRN Reason: Pain 3 to 6 Morphine Sulfate (Morphine Inj) 4 mg IV.PUSH Q4H PRN PRN Reason: Pain 7 to 10 Ondansetron HCl (Zofran Inj) 4 mg IV.PUSH Q6H PRN PRN Reason: NAUSEA OR VOMITING Sodium Chloride (Ns Flush) 2 ml IV.FLUSH BID [facility] Sodium Chloride (Ns Flush) 2 ml IV.FLUSH PRN PRN PRN Reason: FLUSH AFTER USING IV ACCESS Physical Exam Vital signs: Last Vital Signs Temp 98.7 F 10/31/18 12:39 Pulse 106 H 10/31/18 12:39 Resp 24 10/31/18 12:39 BP 171/67 H 10/31/18 12:39 Pulse Ox 94 L 10/31/18 12:39 Intake & Output 10/29/18 10/30/18 10/31/18 11/01/18 06:59 06:59 06:59 06:59 Weight 90.718 kg Narrative: GENERAL: NAD, A&Ox1 HEAD: Normocephalic. NECK: Supple, trachea midline. No lymphadenopathy. EYES: No scleral icterus. No injection or drainage. CARDIOVASCULAR: Regular rate and rhythm without murmurs, gallops, or rubs. RESPIRATORY: Breath sounds equal bilaterally. No accessory muscle use. GASTROINTESTINAL: Abdomen soft, non-tender, nondistended. MUSCULOSKELETAL: No cyanosis, or edema. SKIN: Warm and dry. NEURO: Left hemiplegia, rightward gaze with left hemineglect, expressive aphasia Results Labs CBC & Chem 7: 10/31/18 09:05 10/31/18 09:05 Imaging Impressions Head MRI 10/31/18 00:00 CONCLUSION: 1. Multifocal areas of restricted diffusion secondary to recent ischemia. These are located in the right frontoparietal region and more anteriorly in the right frontal high and mid convexity. 2. Chronic findings include generalized atrophy and chronic periventricular white matter change. Chest X-Ray 10/31/18 09:03 CONCLUSION: 1. Mild diffuse interstitial prominence consistent with mild interstitial edema. 2. Mild hazy opacity throughout the left lung. This corresponds with small pleural effusion noted on the CTA of the neck. Head CT 10/31/18 09:03 CONCLUSION: 1. No acute infarct, acute hemorrhage, midline shift or extra axial fluid collection. 2. Cerebral atrophy. 3. 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 4. Mild periventricular white matter small vessel ischemic changes bilaterally. The report was called to Dr. White at 9:43 AM on 10/31/2018. Head CTA 10/31/18 09:03 CONCLUSION: 1. Negative CTA Head. Report was called by Dr. Arroyo to Dr. Dominique at 9:48 AM on 10/31/2018. Neck CTA 10/31/18 09:03 CONCLUSION: 1. No hemodynamically significant carotid or vertebral artery lesion, as above. 2. Small bilateral pleural effusions, right greater than left with mild diffuse groundglass opacities in the lung apices. Overall findings are most consistent with a pulmonary edema pattern. Caprini VTE Risk Assessment Caprini VTE Risk Assessment: Moderate/High Risk (score >= 2) Caprini Risk Assessment Model: Point Value = 1 Point Value = 2 Point Value = 3 Point Value = 5 Age 41-60 Minor surgery BMI > 25 kg/m2 Swollen legs Varicose veins or History of unexplained or recurrent spontaneous Oral contraceptives or hormone replacement Sepsis (< 1 month) Serious lung disease, including pneumonia (< 1 month) Abnormal pulmonary function Acute myocardial infarction Congestive heart failure (< 1 month) History of inflammatory bowel disease Medical patient at bed rest Age 61-74 Arthroscopic surgery Major open surgery (> 45 min) Laparoscopic surgery (> 45 min) Malignancy Confined to bed (> 72 hours) Immobilizing plaster cast Central venous access Age >= 75 History of VTE Family history of VTE Factor V Leiden Prothrombin [id number] Lupus anticoagulant Anticardiolipin antibodies Elevated serum homocysteine Heparin-induced thrombocytopenia Other congenital or acquired thrombophilia Stroke (< 1 month) Elective arthroplasty Hip, pelvis, or leg fracture Acute spinal cord injury (< 1 month) Prophylaxis Regimen: Total Risk Factor Score Risk Level Prophylaxis Regimen 0-1 Low Early ambulation 2 Moderate Order ONE of the following: *Sequential Compression Device (SCD) *Heparin 5000 units SQ BID 3-4 Higher Order ONE of the following medications: *Heparin 5000 units SQ TID *Enoxaparin/Lovenox 40 mg SQ daily (WT < 150 kg, CrCl > 30 mL/min) *Enoxaparin/Lovenox 30 mg SQ daily (WT < 150 kg, CrCl > 10-29 mL/min) *Enoxaparin/Lovenox 30 mg SQ BID (WT < 150 kg, CrCl > 30 mL/min) AND/OR *Sequential Compression Device (SCD) 5 or more Highest Order ONE of the following medications: *Heparin 5000 units SQ TID (Preferred with Epidurals) *Enoxaparin/Lovenox 40 mg SQ daily (WT < 150 kg, CrCl > 30 mL/min) *Enoxaparin/Lovenox 30 mg SQ daily (WT < 150 kg, CrCl > 10-29 mL/min) *Enoxaparin/Lovenox 30 mg SQ BID (WT < 150 kg, CrCl > 30 mL/min) AND *Sequential Compression Device (SCD) Assessment and Plan (1) Acute right MCA stroke: Code(s): I63.511 - Cerebral infarction due to unspecified occlusion or stenosis of right middle cerebral artery Status: Acute (2) Hypertension: Code(s): I10 - Essential (primary) hypertension Status: Acute Plan 88-year-old female admitted secondary to acute CVA. Acute CVA Left hemiplegia Encephalopathy Neurology consulted Follow with neuro checks N.p.o. IV hydration Follow her clinically for improvement Patient will need PT if she is able to cooperate in future MRI brain History of hypertension Elevated Allow permissive elevation N.p.o. Losartan held DVT prophylaxis SCDs _ (1) Hypertension Qualifiers: Hypertension type:
--- NOTE | 2018-10-31 16:57 | ECG ---
Date Performed: 10/31/2018 Time Performed: 09:38:02 PTAGE: 88 years EKG: ATRIAL FIBRILLATION WITH RAPID VENTRICULAR RESPONSE NONSPECIFIC T-WAVE ABNORMALITY ABNORMAL RHYTHM ECG PREVIOUS TRACING 09/20/2016 @ 11.35.09 Since the previous tracing, no significant change noted DOCTOR: Robinson Hathaway Interpretating Date/Time 10/31/2018 16:57:02
[2018-10-31 18:47] LABS: Hemoglobin A1c 6.5 % (4.3-6.0)
--- NOTE | 2018-10-31 20:31 | ECHRPT ---
Indication: cva CONCLUSIONS Normal left ventricular size and wall thickness. The left ventricular systolic function is normal wi th an estimated ejection fraction in the range of 60-65%. No regional wall motion abnormalities are presen t. Moderate mitral annular calcification. [id number] mitral valve regurgitation. Mild thickening of the aortic valve leaflets. There is mild tricuspid valve regurgitation. The estimated pulmonary arterial pressure is 55 mmHg. BP: / HR: Rhythm: MEASUREMENTS (Male / Female) Normal Values Technical Quality:Technically difficult study 2D ECHO LV Diastolic Diameter PLAX 3.4 cm 4.2 - 5.9 / 3.9 - 5.3 cm LV Systolic Diameter PLAX 2.7 cm IVS Diastolic Thickness 1.3 cm 0.6 - 1.0 / 0.6 - 0.9 cm LVPW Diastolic Thickness 1.1 cm 0.6 - 1.0 / 0.6 - 0.9 cm LV Relative Wall Thickness 0.7 RV Internal Dim ED PLAX 3.0 cm LVOT Diameter 1.7 cm Aortic Root Diameter 2.8 cm LA Systolic Diameter LX 3.6 cm 3.0 - 4.0 / 2.7 - 3.8 cm LV Ejection Fraction MOD 4C 72.4 % LV Ejection Fraction 4C AL 73.8 % M-MODE Aortic Root Diameter MM 3.2 cm LA Systolic Diameter MM 4.7 cm LA Ao Ratio MM 1.5 AV Cusp Separation MM 1.2 cm DOPPLER AV Peak Velocity 167.0 cm/s AV Peak Gradient 11.2 mmHg AV Mean Gradient 7.0 mmHg AV Velocity Time Integral 35.6 cm LVOT Peak Velocity 98.2 cm/s LVOT Peak Gradient 3.9 mmHg LVOT Velocity Time Integral 19.8 cm AV Area Cont Eq vti 1.3 cm AV Area Cont Eq pk 1.3 cm Mitral E Point Velocity 125.0 cm/s Mitral A Point Velocity 37.7 cm/s Mitral E to A Ratio 3.3 TR Peak Velocity 348.0 cm/s TR Peak Gradient 48.4 mmHg Right Atrial Pressure 10.0 mmHg Pulmonary Artery Systolic Pressu 58.4 mmHg Right Ventricular Systolic Press 58.4 mmHg PV Peak Velocity 124.0 cm/s PV Peak Gradient 6.2 mmHg FINDINGS LEFT VENTRICLE Normal left ventricular size and wall thickness. The left ventricular systolic function is normal wi th an estimated ejection fraction in the range of 60-65%. No regional wall motion abnormalities are presen t. RIGHT VENTRICLE Normal right ventricular size and systolic function. LEFT ATRIUM The left atrial size is normal. RIGHT ATRIUM The right atrial size is normal. ATRIAL SEPTUM Normal atrial septal thickness without atrial level shunting by limited color doppler interrogation. AORTA The aortic root and proximal ascending aorta are normal in size on limited imaging. MITRAL VALVE Moderate mitral annular calcification. [id number] mitral valve regurgitation. AORTIC VALVE Mild thickening of the aortic valve leaflets. TRICUSPID VALVE There is mild tricuspid valve regurgitation. The estimated pulmonary arterial pressure is 55 mmHg. PULMONARY VALVE No pulmonary valve regurgitation or stenosis. VESSELS The inferior vena cava is normal in size. PERICARDIUM No pericardial effusion. Massimo Holley MD (Electronically Signed) Final Date:31 October 2018 20:30
[2018-11-01 06:26] LABS: Baso % (Auto) 0.6 % (0.0-2.0); Eos # (Auto) 0.1 th/mm3 (0.0-0.4); Eos % (Auto) 1.5 % (0.0-4.0); Hematocrit 30.2 % (35.0-46.0); Hemoglobin 10.5 gm/dL (11.6-15.3); Lymph # (Auto) 1.3 th/mm3 (1.0-4.8); Lymph % (Auto) 16.6 % (9.0-44.0); Mean Corpuscular HGB Conc 34.8 % (32.0-36.0); Mean Corpuscular Hemoglobin 38.8 pg (27.0-34.0); Mean Corpuscular Volume 111.5 fL (80.0-100.0); Mean Platelet Volume 7.5 fL (7.0-11.0); Mono # (Auto) 0.8 th/mm3 (0.0-0.9); Mono % (Auto) 9.5 % (0.0-8.0); Neut # (Auto) 5.7 th/mm3 (1.8-7.7); Neut % (Auto) 71.8 % (16.0-70.0); Platelet Count 289 th/mm3 (150-450); Red Blood Count 2.71 mil/mm3 (4.00-5.30); Red Cell Distribution Width 19.1 % (11.6-17.2); White Blood Count 7.9 th/mm3 (4.0-11.0)
[2018-11-01 06:52] LABS: Alanine Aminotransferase 24 U/L (10-53); Albumin 2.4 g/dL (3.4-5.0); Anion Gap 8 meq/L (5-15); Aspartate Aminotransferase 21 U/L (15-37); Blood Urea Nitrogen 15 mg/dL (7-18); Calcium 7.9 mg/dL (8.5-10.1); Carbon Dioxide 25.4 meq/L (21.0-32.0); Chloride 109 meq/L (98-107); Glomerular Filtration Rate 68 mL/min (>89); Glucose,Random 105 mg/dL (74-106); Potassium 3.5 meq/L (3.5-5.1); Sodium 142 meq/L (136-145)
[2018-11-01 06:55] LABS: Alkaline Phosphatase 60 U/L (45-117); Total Protein 5.8 g/dL (6.4-8.2)
--- NOTE | 2018-11-01 07:17 | P.PNNEU ---
Subjective Subjective Comments: no acute events, no cp/no brasher, no dyspnea Active Medications: Active Medications Enalaprilat (Vasotec Inj) 1.25 mg IV.PUSH Q6H PRN PRN Reason: Systolic BP > 220 mmHg Sodium Chloride (Ns Inj) 1,000 mls @ 80 mls/hr IV.CONT .[id number] [facility] Last Admin: 10/31/18 20:38 Dose: 80 mls/hr Morphine Sulfate (Morphine Inj) 2 mg IV.PUSH Q4H PRN PRN Reason: Pain 3 to 6 Last Admin: 10/31/18 20:35 Dose: 2 mg Morphine Sulfate (Morphine Inj) 4 mg IV.PUSH Q4H PRN PRN Reason: Pain 7 to 10 Ondansetron HCl (Zofran Inj) 4 mg IV.PUSH Q6H PRN PRN Reason: NAUSEA OR VOMITING Sodium Chloride (Ns Flush) 2 ml IV.FLUSH BID [facility] Last Admin: 10/31/18 20:37 Dose: 2 ml Sodium Chloride (Ns Flush) 2 ml IV.FLUSH PRN PRN PRN Reason: FLUSH AFTER USING IV ACCESS Allergies/Adverse Reactions: Allergies Allergy/AdvReac Type Severity Reaction Status Date / Time penicillin G Allergy Severe "VIOLENT Verified 10/31/18 09:01 REACTION" Review of Systems All other systems reviewed negative except as stated in HPI Physical Exam Vital signs: Vital Signs 10/31/18 08:56 10/31/18 09:06 10/31/18 09:08 Temperature 98.1 F Pulse Rate 91 H 92 H Respiratory Rate 18 Blood Pressure 207/95 H Pulse Oximetry 99 96 10/31/18 09:33 10/31/18 09:43 10/31/18 12:39 Temperature 98.7 F Pulse Rate 85 113 H 106 H Respiratory Rate 16 14 24 Blood Pressure 177/102 H 177/102 H 171/67 H Pulse Oximetry 96 98 94 L 10/31/18 13:42 10/31/18 15:30 10/31/18 16:00 Temperature 98.4 F 97.5 F L Pulse Rate 101 H 94 H 90 Respiratory Rate 16 16 Blood Pressure 166/93 H 169/93 H Pulse Oximetry 96 94 L 10/31/18 20:00 11/01/18 00:00 11/01/18 04:00 Temperature 98.2 F 98.5 F 98.4 F Pulse Rate 90 87 83 Respiratory Rate 18 18 16 Blood Pressure 170/90 H 158/88 H 122/62 Pulse Oximetry 94 L 95 92 L 11/01/18 04:15 Temperature Pulse Rate Respiratory Rate Blood Pressure Pulse Oximetry 97 Intake & Output 10/31/18 11/01/18 11/01/18 18:59 06:59 18:59 Intake Total 100 / 100 1000 / 1000 Output Total 300 / 300 450 / 450 Balance -200 / -200 550 / 550 Weight 90.718 kg 90.8 kg Intake: IV 100 / 100 1000 / 1000 NS Inj 1,000 ML @ 80 mls/hr IV. 1000 / 1000 CONT .[id number] MICHELLE Rx#:[id number] Azactam Inj 1,000 MG In NS Inj 100 / 100 100 ML @ 200 mls/hr IV.SIG ONCE ONE Rx#:[id number] Oral 0 / 0 Output: Urine 300 / 300 450 / 450 Other: # Incontinent Voids 2 Narrative: GENERAL: in NAD, SKIN: Warm and dry. HEAD: Atraumatic. Normocephalic. EYES: Pupils equal and round. No scleral icterus. ENT: No nasal bleeding or discharge. NECK: Trachea midline. No JVD. CARDIOVASCULAR: irregular RESPIRATORY: No accessory muscle use. GASTROINTESTINAL: Abdomen soft, non-tender, nondistended. MUSCULOSKELETAL: Extremities without clubbing, cyanosis, or edema. NEUROLOGICAL: Awake and alert. follows, severe dysarthria, right gaze deviation right head tilt, left facial weakness, left homonymous hemianopsia left hemineglect, left upper extremity 1-2 out of 5 with increased tone, some withdrawal left lower ext 2-3/5, right upper right lower extremity spontaneous PSYCHIATRIC: Calm - Constitutional no acute distress - Routine HEENT Exam Head: Present: normocephalic Eye: Present: EOMI Objective Laboratory Results - last 24 hr 10/31/18 10/31/18 10/31/18 09:03 09:05 09:05 WBC 10.0 RBC 3.01 L Hgb 11.7 POC Hgb (Calc) Hct 33.5 L POC Hct MCV 111.5 H MCH 38.9 H MCHC 34.9 RDW 19.3 H Plt Count 300 MPV 7.3 Neut % (Auto) 74.2 H Lymph % (Auto) 15.4 Titus % (Auto) 9.6 H Eos % (Auto) 0.4 Baso % (Auto) 0.4 Neut # (Auto) 7.4 Lymph # (Auto) 1.5 Titus # (Auto) 1.0 H Eos # (Auto) 0.0 Baso # (Auto) 0.0 WBC Differential . Differential Comment Auto diff final PT 10.7 INR 1.1 APTT 26.2 Fibrinogen 480 H POC Sodium Sodium POC Potassium Potassium POC Chloride Chloride Carbon Dioxide Anion Gap POC BUN BUN Creatinine POC Creatinine Estimated GFR POC Glucose 108 Random Glucose Hemoglobin A1c Calcium Total Bilirubin AST ALT Alkaline Phosphatase Total Creatine Kinase CK-MB (CK-2) CK-MB (CK-2) % Troponin I Total Protein Albumin Triglycerides Cholesterol LDL Cholesterol, Calc HDL Cholesterol Cholesterol/HDL Ratio Vitamin B12 Urine Color Urine Clarity Urine pH Ur Specific [place] Urine Protein Urine Glucose (UA) Urine Ketones Urine Occult Blood Urine Nitrate Urine Bilirubin Urine Urobilinogen Ur Leukocyte Esterase Urine RBC Urine WBC Ur Squamous Epith Cells Urine Bacteria Hyaline Casts Urine Mucus Micro UA Comment Ur Microscopic Review Urine Culture Comments Urine Opiates Screen Ur Barbiturates Screen Ur Amphetamines Screen U Benzodiazepines Scrn Urine Cocaine Screen U Cannabinoids Screen Blood Type Antibody Screen 10/31/18 10/31/18 10/31/18 09:05 09:05 09:05 WBC RBC Hgb POC Hgb (Calc) 11.6 Hct POC Hct 34.0 L MCV MCH MCHC RDW Plt Count MPV Neut % (Auto) Lymph % (Auto) Titus % (Auto) Eos % (Auto) Baso % (Auto) Neut # (Auto) Lymph # (Auto) Titus # (Auto) Eos # (Auto) Baso # (Auto) WBC Differential Differential Comment PT INR APTT Fibrinogen POC Sodium 143 Sodium 140 POC Potassium 4.1 Potassium 4.1 POC Chloride 105 Chloride 108 H Carbon Dioxide 26.3 Anion Gap 6 POC BUN 20 BUN 21 H Creatinine 0.93 POC Creatinine 0.8 Estimated GFR 57 L POC Glucose 131 H Random Glucose 127 H Hemoglobin A1c Calcium 8.5 Total Bilirubin 0.7 AST 31 ALT 31 Alkaline Phosphatase 71 Total Creatine Kinase 362 H CK-MB (CK-2) 3.9 H CK-MB (CK-2) % 1.1 Troponin I Less than 0.02 L Total Protein 7.0 D Albumin 2.9 L Triglycerides 85 Cholesterol 192 LDL Cholesterol, Calc 125 H HDL Cholesterol 50.3 Cholesterol/HDL Ratio 3.81 Vitamin B12 Urine Color Urine Clarity Urine pH Ur Specific [place] Urine Protein Urine Glucose (UA) Urine Ketones Urine Occult Blood Urine Nitrate Urine Bilirubin Urine Urobilinogen Ur Leukocyte Esterase Urine RBC Urine WBC Ur Squamous Epith Cells Urine Bacteria Hyaline Casts Urine Mucus Micro UA Comment Ur Microscopic Review Urine Culture Comments Urine Opiates Screen Ur Barbiturates Screen Ur Amphetamines Screen U Benzodiazepines Scrn Urine Cocaine Screen U Cannabinoids Screen Blood Type Antibody Screen 10/31/18 10/31/18 10/31/18 09:05 09:05 09:54 WBC RBC Hgb POC Hgb (Calc) Hct POC Hct MCV MCH MCHC RDW Plt Count MPV Neut % (Auto) Lymph % (Auto) Titus % (Auto) Eos % (Auto) Baso % (Auto) Neut # (Auto) Lymph # (Auto) Titus # (Auto) Eos # (Auto) Baso # (Auto) WBC Differential Differential Comment PT INR APTT Fibrinogen POC Sodium Sodium POC Potassium Potassium POC Chloride Chloride Carbon Dioxide Anion Gap POC BUN BUN Creatinine POC Creatinine Estimated GFR POC Glucose Random Glucose Hemoglobin A1c 6.5 H Calcium Total Bilirubin AST ALT Alkaline Phosphatase Total Creatine Kinase CK-MB (CK-2) CK-MB (CK-2) % Troponin I Total Protein Albumin Triglycerides Cholesterol LDL Cholesterol, Calc HDL Cholesterol Cholesterol/HDL Ratio Vitamin B12 Less than 60 L Urine Color Yellow Urine Clarity Hazy H Urine pH 5.0 Ur Specific [place] 1.024 Urine Protein Negative Urine Glucose (UA) Negative Urine Ketones Negative Urine Occult Blood Small H Urine Nitrate Negative Urine Bilirubin Negative Urine Urobilinogen Less than 2 Ur Leukocyte Esterase Negative Urine RBC 1 Urine WBC 1 Ur Squamous Epith Cells <1 Urine Bacteria Occasional H Hyaline Casts 1 Urine Mucus Moderate H Micro UA Comment Cath-culture ind Ur Microscopic Review Not Reportable Urine Culture Comments Cath-cult indicated Urine Opiates Screen Ur Barbiturates Screen Ur Amphetamines Screen U Benzodiazepines Scrn Urine Cocaine Screen U Cannabinoids Screen Blood Type Antibody Screen 10/31/18 10/31/18 11/01/18 10:07 11:02 05:37 WBC 7.9 RBC 2.71 L Hgb 10.5 L POC Hgb (Calc) Hct 30.2 L POC Hct MCV 111.5 H MCH 38.8 H MCHC 34.8 RDW 19.1 H Plt Count 289 MPV 7.5 Neut % (Auto) 71.8 H Lymph % (Auto) 16.6 Titus % (Auto) 9.5 H Eos % (Auto) 1.5 Baso % (Auto) 0.6 Neut # (Auto) 5.7 Lymph # (Auto) 1.3 Titus # (Auto) 0.8 Eos # (Auto) 0.1 Baso # (Auto) 0.0 WBC Differential . Differential Comment Auto diff final PT INR APTT Fibrinogen POC Sodium Sodium POC Potassium Potassium POC Chloride Chloride Carbon Dioxide Anion Gap POC BUN BUN Creatinine POC Creatinine Estimated GFR POC Glucose Random Glucose Hemoglobin A1c Calcium Total Bilirubin AST ALT Alkaline Phosphatase Total Creatine Kinase CK-MB (CK-2) CK-MB (CK-2) % Troponin I Total Protein Albumin Triglycerides Cholesterol LDL Cholesterol, Calc HDL Cholesterol Cholesterol/HDL Ratio Vitamin B12 Urine Color Urine Clarity Urine pH Ur Specific [place] Urine Protein Urine Glucose (UA) Urine Ketones Urine Occult Blood Urine Nitrate Urine Bilirubin Urine Urobilinogen Ur Leukocyte Esterase Urine RBC Urine WBC Ur Squamous Epith Cells Urine Bacteria Hyaline Casts Urine Mucus Micro UA Comment Ur Microscopic Review Urine Culture Comments Urine Opiates Screen Neg Ur Barbiturates Screen Neg Ur Amphetamines Screen Neg U Benzodiazepines Scrn Neg Urine Cocaine Screen Neg U Cannabinoids Screen Neg Blood Type A Positive Antibody Screen Negative 11/01/18 05:37 WBC RBC Hgb POC Hgb (Calc) Hct POC Hct MCV MCH MCHC RDW Plt Count MPV Neut % (Auto) Lymph % (Auto) Titus % (Auto) Eos % (Auto) Baso % (Auto) Neut # (Auto) Lymph # (Auto) Titus # (Auto) Eos # (Auto) Baso # (Auto) WBC Differential Differential Comment PT INR APTT Fibrinogen POC Sodium Sodium 142 POC Potassium Potassium 3.5 POC Chloride Chloride 109 H Carbon Dioxide 25.4 Anion Gap 8 POC BUN BUN 15 Creatinine 0.80 POC Creatinine Estimated GFR 68 L POC Glucose Random Glucose 105 Hemoglobin A1c Calcium 7.9 L Total Bilirubin 0.6 AST 21 ALT 24 Alkaline Phosphatase 60 Total Creatine Kinase CK-MB (CK-2) CK-MB (CK-2) % Troponin I Total Protein 5.8 L D Albumin 2.4 L Triglycerides Cholesterol LDL Cholesterol, Calc HDL Cholesterol Cholesterol/HDL Ratio Vitamin B12 Urine Color Urine Clarity Urine pH Ur Specific Hammond Urine Protein Urine Glucose (UA) Urine Ketones Urine Occult Blood Urine Nitrate Urine Bilirubin Urine Urobilinogen Ur Leukocyte Esterase Urine RBC Urine WBC Ur Squamous Epith Cells Urine Bacteria Hyaline Casts Urine Mucus Micro UA Comment Ur Microscopic Review Urine Culture Comments Urine Opiates Screen Ur Barbiturates Screen Ur Amphetamines Screen U Benzodiazepines Scrn Urine Cocaine Screen U Cannabinoids Screen Blood Type Antibody Screen Review/Management - Diagnosis (1) Acute right MCA stroke Code(s): I63.511 - Cerebral infarction due to unspecified occlusion or stenosis of right middle cerebral artery Status: Acute Current Visit: Yes (2) Hypertension Code(s): I10 - Essential (primary) hypertension Status: Acute Current Visit : Yes - Review/Management Plan: right MCA strokes Current EKG showing possible atrial fibrillation although a lot of baseline artifact Therefore cardioembolic event is a possibility CTA brain and carotids negative for vaso-occlusive disease per radiology Recommendation neuro stable. swallowing next marta watch resp status; hob elevated; high aspiration risk lovenox sub q dvt dose Aspirin suppository Therapy d/w rn reinitiation of oral anticoagulation once tolerating po
--- NOTE | 2018-11-01 09:33 | P.PNIM ---
Subjective Interval history: Patient has had significant improvement compared to yesterday. However, prominent deficits remain. Most improvements have occurred involuntary motor activity and cognition with ability to converse A. Physical Exam Vital signs: Last Vital Signs Temp 98.3 F 11/01/18 07:54 Pulse 82 11/01/18 07:57 Resp 16 11/01/18 07:54 BP 179/98 H 11/01/18 07:54 Pulse Ox 99 11/01/18 08:00 Intake & Output 10/30/18 10/31/18 11/01/18 11/02/18 06:59 06:59 06:59 06:59 Intake Total 1100 / 1100 Output Total 750 / 750 Balance 350 / 350 Weight 90.8 kg Narrative: GENERAL: NAD, A&Ox2 HEAD: Normocephalic. NECK: Supple, trachea midline. No lymphadenopathy. EYES: No scleral icterus. No injection or drainage. CARDIOVASCULAR: Regular rate and rhythm without murmurs, gallops, or rubs. RESPIRATORY: Breath sounds equal bilaterally. No accessory muscle use. GASTROINTESTINAL: Abdomen soft, non-tender, nondistended. MUSCULOSKELETAL: No cyanosis, or edema. SKIN: Warm and dry. NEURO: Left hemiplegia, rightward gaze with left hemineglect Results Labs CBC & Chem 7: 11/01/18 05:37 11/01/18 05:37 Imaging Imaging: Impressions Head MRI 10/31/18 00:00 CONCLUSION: 1. Multifocal areas of restricted diffusion secondary to recent ischemia. These are located in the right frontoparietal region and more anteriorly in the right frontal high and mid convexity. 2. Chronic findings include generalized atrophy and chronic periventricular white matter change. Chest X-Ray 10/31/18 09:03 CONCLUSION: 1. Mild diffuse interstitial prominence consistent with mild interstitial edema. 2. Mild hazy opacity throughout the left lung. This corresponds with small pleural effusion noted on the CTA of the neck. Head CT 10/31/18 09:03 CONCLUSION: 1. No acute infarct, acute hemorrhage, midline shift or extra axial fluid collection. 2. Cerebral atrophy. 3. 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 4. Mild periventricular white matter small vessel ischemic changes bilaterally. The report was called to Dr. White at 9:43 AM on 10/31/2018. Head CTA 10/31/18 09:03 CONCLUSION: 1. Negative CTA Head. Report was called by Dr. Arroyo to Dr. Dominique at 9:48 AM on 10/31/2018. Neck CTA 10/31/18 09:03 CONCLUSION: 1. No hemodynamically significant carotid or vertebral artery lesion, as above. 2. Small bilateral pleural effusions, right greater than left with mild diffuse groundglass opacities in the lung apices. Overall findings are most consistent with a pulmonary edema pattern. Assessment and Plan (1) Acute right MCA stroke: Code(s): I63.511 - Cerebral infarction due to unspecified occlusion or stenosis of right middle cerebral artery Status: Acute (2) Hypertension: Code(s): I10 - Essential (primary) hypertension Status: Acute Plan 88-year-old female admitted secondary to acute CVA. Continue speech therapy, physical therapy, and occupational therapy. Continue monitoring for gradual improvement. Patient not yet passing speech therapy, continue IV hydration. In the next couple days, based on rate of improvement, will determine if patient will need tube feeding and if this is something she would want. Acute CVA Left hemiplegia Encephalopathy Neurology consulted Follow with neuro checks N.p.o. IV hydration Follow her clinically for improvement Patient will need PT if she is able to cooperate in future MRI brain shows right-sided CVA History of hypertension Elevated Allow permissive elevation N.p.o. Losartan held DVT prophylaxis SCDs _ (1) Hypertension Qualifiers: Hypertension type:
[2018-11-01] MEDS: Enoxaparin Inj 40 MG/0.4 ML Syringe SQ SCH (10:19)
[2018-11-01] MEDS: Aspirin 300 MG Supp RECTAL SCH (10:19)
[2018-11-01] MEDS: Sod Chloride 0.9% Inj 1,000 ML IV.CONT SCH (18:34)
[2018-11-02] MEDS: Sod Chloride 0.9% Inj 1,000 ML IV.CONT SCH ×2 (00:42→14:07)
[2018-11-02 07:12] LABS: Baso # (Auto) 0.1 th/mm3 (0.0-0.2); Baso % (Auto) 0.6 % (0.0-2.0); Eos # (Auto) 0.1 th/mm3 (0.0-0.4); Eos % (Auto) 1.4 % (0.0-4.0); Hematocrit 32.4 % (35.0-46.0); Hemoglobin 11.2 gm/dL (11.6-15.3); Lymph # (Auto) 1.3 th/mm3 (1.0-4.8); Lymph % (Auto) 14.4 % (9.0-44.0); Mean Corpuscular HGB Conc 34.5 % (32.0-36.0); Mean Corpuscular Hemoglobin 38.6 pg (27.0-34.0); Mean Corpuscular Volume 112.1 fL (80.0-100.0); Mean Platelet Volume 7.4 fL (7.0-11.0); Mono # (Auto) 0.9 th/mm3 (0.0-0.9); Neut # (Auto) 6.5 th/mm3 (1.8-7.7); Neut % (Auto) 73.6 % (16.0-70.0); Platelet Count 285 th/mm3 (150-450); Red Blood Count 2.89 mil/mm3 (4.00-5.30); Red Cell Distribution Width 18.6 % (11.6-17.2); White Blood Count 8.9 th/mm3 (4.0-11.0)
[2018-11-02 07:39] LABS: Alanine Aminotransferase 22 U/L (10-53); Albumin 2.4 g/dL (3.4-5.0); Anion Gap 9 meq/L (5-15); Aspartate Aminotransferase 24 U/L (15-37); Blood Urea Nitrogen 14 mg/dL (7-18); Calcium 7.6 mg/dL (8.5-10.1); Carbon Dioxide 24.1 meq/L (21.0-32.0); Chloride 108 meq/L (98-107); Glomerular Filtration Rate 85 mL/min (>89); Glucose,Random 81 mg/dL (74-106); Potassium 3.5 meq/L (3.5-5.1); Sodium 141 meq/L (136-145)
[2018-11-02 07:42] LABS: Alkaline Phosphatase 61 U/L (45-117); Total Protein 5.9 g/dL (6.4-8.2)
--- NOTE | 2018-11-02 10:02 | P.PNNEU ---
Subjective Subjective Comments: no acute events, no brasher, no cp Active Medications: Active Medications Aspirin (Aspirin Supp) 300 mg RECTAL DAILY [facility] Last Admin: 11/01/18 10:19 Dose: 300 mg Enalaprilat (Vasotec Inj) 1.25 mg IV.PUSH Q6H PRN PRN Reason: Systolic BP > 220 mmHg Enoxaparin Sodium (Lovenox Inj) 40 mg SQ DAILY [facility] Last Admin: 11/01/18 10:19 Dose: 40 mg Sodium Chloride (Ns Inj) 1,000 mls @ 80 mls/hr IV.CONT .[id number] [facility] Last Admin: 11/02/18 00:42 Dose: 80 mls/hr Morphine Sulfate (Morphine Inj) 2 mg IV.PUSH Q4H PRN PRN Reason: Pain 3 to 6 Last Admin: 10/31/18 20:35 Dose: 2 mg Morphine Sulfate (Morphine Inj) 4 mg IV.PUSH Q4H PRN PRN Reason: Pain 7 to 10 Ondansetron HCl (Zofran Inj) 4 mg IV.PUSH Q6H PRN PRN Reason: NAUSEA OR VOMITING Sodium Chloride (Ns Flush) 2 ml IV.FLUSH BID [facility] Last Admin: 11/01/18 21:32 Dose: Not Given Sodium Chloride (Ns Flush) 2 ml IV.FLUSH PRN PRN PRN Reason: FLUSH AFTER USING IV ACCESS Allergies/Adverse Reactions: Allergies Allergy/AdvReac Type Severity Reaction Status Date / Time penicillin G Allergy Severe "VIOLENT Verified 10/31/18 09:01 REACTION" Review of Systems All other systems reviewed negative except as stated in HPI Physical Exam Vital signs: Vital Signs 11/01/18 12:00 11/01/18 12:12 11/01/18 16:00 Temperature 98.6 F 98.8 F Pulse Rate 88 84 98 H Respiratory Rate 14 16 Blood Pressure 174/90 H 160/69 H Pulse Oximetry 94 L 93 L 11/01/18 18:17 11/01/18 20:00 11/01/18 21:38 Temperature 98.4 F 98.5 F Pulse Rate 96 H 102 H 93 H Respiratory Rate 18 16 Blood Pressure 195/87 H 164/81 H Pulse Oximetry 94 L 93 L 11/01/18 23:43 11/02/18 00:00 11/02/18 03:51 Temperature 98.3 F Pulse Rate 101 H 93 H 86 Respiratory Rate 17 Blood Pressure 146/65 H Pulse Oximetry 95 11/02/18 04:00 Temperature 98.3 F Pulse Rate 90 Respiratory Rate 18 Blood Pressure 150/75 H Pulse Oximetry 93 L Intake & Output 11/01/18 11/02/18 11/02/18 18:59 06:59 18:59 Intake Total 1999 1000 / 1000 Output Total 100 / 100 Balance 1900 / 1900 1000 / 1000 Weight 86.8 kg 88.5 kg Intake: IV 1999 1000 / 1000 NS Inj 1,000 ML @ 80 mls/hr IV. 1999 1000 / 1000 CONT .[id number] MICHELLE Rx#:[id number] Output: Urine 100 / 100 Other: # Incontinent Voids 4 Date of Last Bowel Movement 11/02/18 # Bowel Movements 1 Weight On Admission 90.4 kg Narrative: GENERAL: in NAD, SKIN: Warm and dry. HEAD: Atraumatic. Normocephalic. EYES: Pupils equal and round. ENT: No nasal bleeding or discharge. NECK: Trachea midline. No JVD. CARDIOVASCULAR: irregular RESPIRATORY: No accessory muscle use. GASTROINTESTINAL: Abdomen soft, non-tender, nondistended. MUSCULOSKELETAL: Extremities without clubbing, cyanosis, or edema. NEUROLOGICAL: Awake and alert. follows, ox 1, to self, severe dysarthria, right gaze deviation right head tilt, left facial weakness, left homonymous hemianopsia left hemineglect, left upper extremity 1-2 out of 5 with increased tone, some withdrawal left lower ext 2-3/5, right upper right lower extremity spontaneous PSYCHIATRIC: Calm - Constitutional no acute distress - Routine HEENT Exam Head: Present: normocephalic Eye: Present: EOMI Objective Laboratory Results - last 24 hr 11/02/18 11/02/18 06:37 06:37 WBC 8.9 RBC 2.89 L Hgb 11.2 L Hct 32.4 L MCV 112.1 H MCH 38.6 H MCHC 34.5 RDW 18.6 H Plt Count 285 MPV 7.4 Neut % (Auto) 73.6 H Lymph % (Auto) 14.4 [place] % (Auto) 10.0 H Eos % (Auto) 1.4 Baso % (Auto) 0.6 Neut # (Auto) 6.5 Lymph # (Auto) 1.3 [place] # (Auto) 0.9 Eos # (Auto) 0.1 Baso # (Auto) 0.1 WBC Differential . Differential Comment Auto diff final Sodium 141 Potassium 3.5 Chloride 108 H Carbon Dioxide 24.1 Anion Gap 9 BUN 14 Creatinine 0.66 Estimated GFR 85 L Random Glucose 81 Calcium 7.6 L Total Bilirubin 0.8 AST 24 ALT 22 Alkaline Phosphatase 61 Total Protein 5.9 L Albumin 2.4 L Microbiology 10/31/18 09:54 Urine Culture - Final Catheterized Urine No growth in 48 hours Review/Management - Diagnosis (1) Acute right MCA stroke Code(s): I63.511 - Cerebral infarction due to unspecified occlusion or stenosis of right middle cerebral artery Status: Acute Current Visit: Yes (2) Hypertension Code(s): I10 - Essential (primary) hypertension Status: Acute Current Visit : Yes - Review/Management Plan: right MCA strokes Current EKG showing possible atrial fibrillation although a lot of baseline artifact Therefore cardioembolic event is a possibility CTA brain and carotids negative for vaso-occlusive disease per radiology Recommendation neuro stable daily swallow eval watch resp status; hob elevated; high aspiration risk lovenox sub q dvt dose Aspirin suppository Therapy reinitiation of oral anticoagulation once tolerating po
[2018-11-02] MEDS: Enoxaparin Inj 40 MG/0.4 ML Syringe SQ SCH (10:14)
[2018-11-02] MEDS: Aspirin 300 MG Supp RECTAL SCH (10:17)
--- NOTE | 2018-11-02 14:41 | P.PNIM ---
Subjective Interval history: Only marginal improvement through time at this point. Is not likely the patient will be able to take food or liquids by mouth. Potential for PEG tube placement will be discussed with family as patient's current decision-making capacity is questionable. Physical Exam Vital signs: Last Vital Signs Temp 97.9 F 11/02/18 08:00 Pulse 84 11/02/18 13:16 Resp 20 11/02/18 08:00 BP 142/71 H 11/02/18 08:00 Pulse Ox 96 11/02/18 08:00 Intake & Output 10/31/18 11/01/18 11/02/18 11/03/18 06:59 06:59 06:59 06:59 Intake Total 1100 / 1100 3000 / 3000 1000 / 1000 Output Total 750 / 750 100 / 100 Balance 350 / 350 2900 / 2900 1000 / 1000 Weight 90.8 kg 88.5 kg Narrative: GENERAL: NAD, A&Ox1 HEAD: Normocephalic. NECK: Supple, trachea midline. No lymphadenopathy. EYES: No scleral icterus. No injection or drainage. CARDIOVASCULAR: Regular rate and rhythm without murmurs, gallops, or rubs. RESPIRATORY: Breath sounds equal bilaterally. No accessory muscle use. GASTROINTESTINAL: Abdomen soft, non-tender, nondistended. MUSCULOSKELETAL: No cyanosis, or edema. SKIN: Warm and dry. NEURO: Left hemiplegia, rightward gaze with left hemineglect Results Labs CBC & Chem 7: 11/02/18 06:37 11/02/18 06:37 Labs: Microbiology 10/31/18 09:54 Catheterized Urine Urine Culture - Final No growth in 48 hours Assessment and Plan (1) Acute right MCA stroke: Code(s): I63.511 - Cerebral infarction due to unspecified occlusion or stenosis of right middle cerebral artery Status: Acute (2) Hypertension: Code(s): I10 - Essential (primary) hypertension Status: Acute Plan 88-year-old female admitted secondary to acute CVA. Continue speech therapy, physical therapy, and occupational therapy. This patient will likely have long-term motor deficits including dysphasia. Patient not yet passing speech therapy, continue IV hydration. Plan to discuss options for feeding tubes with family if this is a desire. Acute CVA Left hemiplegia Encephalopathy Neurology consulted Follow with neuro checks N.p.o. IV hydration Follow her clinically for improvement Patient will need PT if she is able to cooperate in future MRI brain shows right-sided CVA History of hypertension Elevated Allow permissive elevation N.p.o. Losartan held DVT prophylaxis SCDs _ (1) Hypertension Qualifiers: Hypertension type:
[2018-11-03] MEDS: Sod Chloride 0.9% Inj 1,000 ML IV.CONT SCH (01:27)
--- NOTE | 2018-11-03 07:29 | P.PNNEU ---
Subjective Subjective Comments: No cp, no dyspnea, no brasher, slept well no acute events Active Medications: Active Medications Aspirin (Aspirin Supp) 300 mg RECTAL DAILY [facility] Last Admin: 11/02/18 10:17 Dose: 300 mg Enalaprilat (Vasotec Inj) 1.25 mg IV.PUSH Q6H PRN PRN Reason: Systolic BP > 220 mmHg Enoxaparin Sodium (Lovenox Inj) 40 mg SQ DAILY [facility] Last Admin: 11/02/18 10:14 Dose: 40 mg Sodium Chloride (Ns Inj) 1,000 mls @ 80 mls/hr IV.CONT .[id number] [facility] Last Infusion: 11/03/18 04:55 Dose: 80 mls/hr Morphine Sulfate (Morphine Inj) 2 mg IV.PUSH Q4H PRN PRN Reason: Pain 3 to 6 Last Admin: 10/31/18 20:35 Dose: 2 mg Morphine Sulfate (Morphine Inj) 4 mg IV.PUSH Q4H PRN PRN Reason: Pain 7 to 10 Ondansetron HCl (Zofran Inj) 4 mg IV.PUSH Q6H PRN PRN Reason: NAUSEA OR VOMITING Sodium Chloride (Ns Flush) 2 ml IV.FLUSH BID [facility] Last Admin: 11/02/18 21:44 Dose: 2 ml Sodium Chloride (Ns Flush) 2 ml IV.FLUSH PRN PRN PRN Reason: FLUSH AFTER USING IV ACCESS Allergies/Adverse Reactions: Allergies Allergy/AdvReac Type Severity Reaction Status Date / Time penicillin G Allergy Severe "VIOLENT Verified 10/31/18 09:01 REACTION" Review of Systems All other systems reviewed negative except as stated in HPI Physical Exam Vital signs: Vital Signs 11/02/18 08:00 11/02/18 12:00 11/02/18 13:16 Temperature 97.9 F 98 F Pulse Rate 94 H 80 84 Respiratory Rate 20 20 Blood Pressure 142/71 H 192/70 H Pulse Oximetry 96 96 11/02/18 16:00 11/02/18 16:40 11/02/18 20:00 Temperature 99 F 98.2 F Pulse Rate 94 H 102 H Respiratory Rate 20 18 Blood Pressure 176/77 H 112/66 Pulse Oximetry 95 96 95 11/03/18 00:00 11/03/18 04:00 Temperature 98.3 F 98.0 F Pulse Rate 96 H 89 Respiratory Rate 16 18 Blood Pressure 156/76 H 172/89 H Pulse Oximetry 95 95 Intake & Output 11/02/18 11/03/18 11/03/18 18:59 06:59 18:59 Intake Total 1000 / 1000 / 221 Balance 1000 / 1000 / 221 Weight 87.2 kg Intake: IV 1000 / 1000 NS Inj 1,000 ML @ 80 mls/hr IV. 1000 / 1000 CONT .[id number] MICHELLE Rx#:[id number] Oral Other: # Voids 1 4 Date of Last Bowel Movement 11/01/18 11/01/18 Narrative: GENERAL: in NAD, SKIN: Warm and dry. HEAD: Atraumatic. Normocephalic. EYES: Pupils equal and round. ENT: No nasal bleeding or discharge. NECK: Trachea midline. No JVD. CARDIOVASCULAR: irregular RESPIRATORY: No accessory muscle use. GASTROINTESTINAL: Abdomen soft, non-tender, nondistended. MUSCULOSKELETAL: Extremities without clubbing, cyanosis, or edema. NEUROLOGICAL: Awake and alert. follows, ox 1, sitting up being fed breakfast by her caregiver to self, severe dysarthria, right gaze preference, left facial weakness, left homonymous hemianopsia left hemineglect, left upper extremity 3- 4 out of 5 with increased tone and reduced fine finger movements, some withdrawal left lower ext 3/5, right upper right lower extremity spontaneous PSYCHIATRIC: Calm - Constitutional no acute distress - Routine HEENT Exam Head: Present: normocephalic Eye: Present: EOMI Objective Laboratory Results - last 24 hr 11/02/18 06:37 Sodium 141 Potassium 3.5 Chloride 108 H Carbon Dioxide 24.1 Anion Gap 9 BUN 14 Creatinine 0.66 Estimated GFR 85 L Random Glucose 81 Calcium 7.6 L Total Bilirubin 0.8 AST 24 ALT 22 Alkaline Phosphatase 61 Total Protein 5.9 L Albumin 2.4 L Microbiology 10/31/18 09:54 Urine Culture - Final Catheterized Urine No growth in 48 hours Review/Management - Diagnosis (1) Acute right MCA stroke Code(s): I63.511 - Cerebral infarction due to unspecified occlusion or stenosis of right middle cerebral artery Status: Acute Current Visit: Yes (2) Hypertension Code(s): I10 - Essential (primary) hypertension Status: Acute Current Visit : Yes - Review/Management Plan: right MCA strokes Current EKG showing possible atrial fibrillation although a lot of baseline artifact Therefore cardioembolic event is a possibility CTA brain and carotids negative for vaso-occlusive disease per radiology Recommendation neuro stable Tolerating pured diet Discharge planning to sniff once cleared by therapist reinitiation of Eliquis at 2.5 mg bid, can then be increased to 5 mg twice daily after couple weeks if that is the target dose at her age defer to medical ; d/c aspirin
[2018-11-03] MEDS: Enoxaparin Inj 40 MG/0.4 ML Syringe SQ SCH (09:31)
[2018-11-03] MEDS: Aspirin 300 MG Supp RECTAL SCH (09:31)
--- NOTE | 2018-11-03 12:15 | P.PNIM ---
Subjective Interval history: Patient's dietary intake is improving. She still has some residual deficits on the left side from CVA but swallow function is improving enough that she should build to take caloric intake to maintain her weight and nutrition. Physical Exam Vital signs: Last Vital Signs Temp 95.9 F L 11/03/18 08:00 Pulse 97 H 11/03/18 08:00 Resp 20 11/03/18 08:00 BP 167/81 H 11/03/18 08:00 Pulse Ox 93 L 11/03/18 08:00 Intake & Output 11/01/18 11/02/18 11/03/18 11/04/18 06:59 06:59 06:59 06:59 Intake Total 1100 / 1100 3000 / 3000 1221 / 1221 Output Total 750 / 750 100 / 100 Balance 350 / 350 2900 / 2900 1221 / 1221 Weight 90.8 kg 88.5 kg 87.2 kg Narrative: GENERAL: NAD, A&Ox3 HEAD: Normocephalic. NECK: Supple, trachea midline. No lymphadenopathy. EYES: No scleral icterus. No injection or drainage. CARDIOVASCULAR: Regular rate and rhythm without murmurs, gallops, or rubs. RESPIRATORY: Breath sounds equal bilaterally. No accessory muscle use. GASTROINTESTINAL: Abdomen soft, non-tender, nondistended. MUSCULOSKELETAL: No cyanosis, or edema. SKIN: Warm and dry. NEURO: Left hemiplegia Results Labs CBC & Chem 7: 11/02/18 06:37 11/02/18 06:37 Labs: Microbiology 10/31/18 09:54 Catheterized Urine Urine Culture - Final No growth in 48 hours Assessment and Plan (1) Acute right MCA stroke: Code(s): I63.511 - Cerebral infarction due to unspecified occlusion or stenosis of right middle cerebral artery Status: Acute (2) Hypertension: Code(s): I10 - Essential (primary) hypertension Status: Acute Plan 88-year-old female admitted secondary to acute CVA. Clinically improving. Currently able to take p.o. intake. Patient will need jail facility at time of discharge. Discharge anticipated for as early as tomorrow if cleared by neurology. Continue speech therapy, physical therapy, and occupational therapy. Acute CVA Left hemiplegia Encephalopathy Neurology consulted Follow with neuro checks N.p.o. IV hydration Follow her clinically for improvement Patient will need PT if she is able to cooperate in future MRI brain shows right-sided CVA History of hypertension Elevated Allow permissive elevation N.p.o. Losartan held DVT prophylaxis SCDs _ (1) Hypertension Qualifiers: Hypertension type:
--- NOTE | 2018-11-03 12:22 | P.DS ---
DS: Providers Date of admission: 10/31/18 10:43 Primary care physician: Leandro Lipscomb MD Consults: 10/31/18 09:03 Consult to Neurology Stat Consulting Provider: Alexandre Mo For STAT consult, spoke directly to:: dr mo Preferred Outdoor Studies Professor:: Alexandre Mo Reason for Consultation: Brain Attack Notified:: Office Spoke with:: Lesley Date Notified:: 10/31/18 Time Notified:: 10:17 Comments:: Ordering Provider: [facility]AS 10/31/18 11:32 HUB Only Consult Order Routine Consulting Provider: [employer] 11/02/18 11:15 HUB Only Consult Order Routine Consulting Provider: [facility] Reason for Consultation: SNF Notified:: Office Spoke with:: KYLER Date Notified:: 11/02/18 Time:: 11:15 11/02/18 13:44 HUB Only Consult Order Routine Consulting Provider: Regenerate Brief History from admission: Mrs. Davis is an 88 year old female. She has been sent here from her care facility due to an acute onset of altered mental status. She has a rightward gaze with left hemiplegia and was unable to communicate. At this point she can provide no history. Clinically it appears that she has had a CVA, probably on the right side. Blood pressures are elevated, likely responsive. No further history can be obtained. Based on previous admits she has a prior history of DVT and rhabdomyolysis. Hypertension is present at baseline. DS: Diagnosis Discharge Diagnosis (1) Acute right MCA stroke: Status: Acute (2) Hypertension: Status: Acute DS: Summary -year-old female admitted secondary to acute CVA. At first this patient had profound neurological deficits including poor cognition, disorientation, left hemineglect with rightward gaze. She also had severe dysphasia. With time she has had improvement. Currently she is alert and oriented x3. She has a left hemiplegia but rightward gaze is improved. Dysphasia has improved. Currently she is tolerating honey thick liquids and pured food. She is able to take meals by mouth and has been eating well. Medically stable and cleared for continuation of physical therapy occupational therapy and speech therapy as an outpatient at a [facility]. Discharge today. Time Spent with Patient Total time spent providing and/or coordinating discharge services: Quality: Stroke Last date observed well: 10/30/18 Last time observed well: 19:00 Results Impressions ITS Impressions Head MRI 10/31/18 00:00 CONCLUSION: 1. Multifocal areas of restricted diffusion secondary to recent ischemia. These are located in the right frontoparietal region and more anteriorly in the right frontal high and mid convexity. 2. Chronic findings include generalized atrophy and chronic periventricular white matter change. Chest X-Ray 10/31/18 09:03 CONCLUSION: 1. Mild diffuse interstitial prominence consistent with mild interstitial edema. 2. Mild hazy opacity throughout the left lung. This corresponds with small pleural effusion noted on the CTA of the neck. Head CT 10/31/18 09:03 CONCLUSION: 1. No acute infarct, acute hemorrhage, midline shift or extra axial fluid collection. 2. Cerebral atrophy. 3. 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 4. Mild periventricular white matter small vessel ischemic changes bilaterally. The report was called to Dr. White at 9:43 AM on 10/31/2018. Head CTA 10/31/18 09:03 CONCLUSION: 1. Negative CTA Head. Report was called by Dr. Arroyo to Dr. Mo at 9:48 AM on 10/31/2018. Neck CTA 10/31/18 09:03 CONCLUSION: 1. No hemodynamically significant carotid or vertebral artery lesion, as above. 2. Small bilateral pleural effusions, right greater than left with mild diffuse groundglass opacities in the lung apices. Overall findings are most consistent with a pulmonary edema pattern. Discharge Plan Discharge Disposition Patient Disposition: Discharge to SNF Discharge Condition Condition: Fair Discharge Order Discharge Orders: Discharge Order (Routine); Ordered 11/03/18 Ordered By: Virgil Reyna Discharge Details Anticipated Discharge Date: 11/03/18 Physicians Team Primary Care Provider: Leandro Lipscomb Attending Provider: Virgil Reyna Other Providers: Alexandre Mo ; [facility],Insurance ; [facility],[place] Rxs /Orders / Referrals /Forms Prescriptions: New apixaban [Eliquis] 2.5 mg Tablet 2.5 mg PO BID Qty: 28 RF: 0 apixaban [Eliquis] 5 mg tablet 5 mg PO BID Qty: 60 RF: 0 Continue losartan 50 mg Tablet 25 mg PO DAILY RF: 0 magnesium citrate [Citroma] Solution 30 ml PO DAILY PRN (Reason: Constipation) RF: 0 Discontinued ammonium lactate [AmLactin] 12 % Lotion 1 applic TOPICAL BID RF: 0 multivitamin with minerals [Multiple Vitamin-Minerals] Tablet 2 tab PO TID RF: 0 Referrals: Leandro Lipscomb MD [Primary Care Provider] - See Instructions Discharge Interventions Interventions: Discharge Planning - Case Management Last Done: 11/02/18 11:26 Status ED Status: Left Department
== END 2018-11-03 17:49 ==
LOC: NEPC 08:52 → NEDA 10:43 → HCIS 13:04 → N05 11-01 17:44
PROVIDERS: ADMIT Hospitalist; ATTEND Hospitalist
DX: R41.4 Neurologic neglect syndrome; R47.02 Dysphasia; Z91.81 History of falling; G93.40 Encephalopathy, unspecified; I10 Essential (primary) hypertension; I63.511 Cerebral infarction due to unspecified occlusion or stenosis of right middle cerebral artery; G81.94 Hemiplegia, unspecified affecting left nondominant side; Z86.718 Personal history of other venous thrombosis and embolism; Z88.0 Allergy status to penicillin

== ENCOUNTER 2018-11-10 14:40 | Inpatient (IN) ==
--- NOTE | 2018-11-10 15:18 | ED ---
HPI General Chief complaint: Weakness Stated complaint: difficulty swallowing/Correction Pt Time Seen by Provider: 11/10/18 14:50 Source: EMS, RN notes reviewed and old records reviewed Mode of arrival: EMS Limitations: altered mental status History of Present Illness HPI narrative: 88yF brought in by EMS from snf for altered mental status and decreased PO intake. The patient is currently non-verbal and unable to provide meaningful contribution to HPI. Note from [place] states that the patient has not been eating, drinking, or speaking but it is unclear when this began. Multiple recent admissions over the past month, most recently from 10/31-11/03 for CVA. Notes from that time noted that the patient had left-sided hemineglect but was reportedly conversational although dysarthric. Related Data Home Medications Medication Instructions Recorded Confirmed losartan 25 mg PO DAILY 06/23/18 11/10/18 magnesium citrate [Citroma] 30 ml PO DAILY PRN 10/31/18 11/10/18 bisacodyl [Dulcolax (bisacodyl)] 10 mg NE DAILY PRN 11/10/18 11/10/18 Previous Rx's Medication Instructions Recorded apixaban [Eliquis] 2.5 mg PO BID #28 tab 11/03/18 apixaban [Eliquis] 5 mg PO BID #60 tab 11/03/18 Allergies Allergy/AdvReac Type Severity Reaction Status Date / Time penicillin G Allergy Severe "VIOLENT Verified 11/10/18 15:11 REACTION" Review of Systems ROS Unobtainable ROS Unobtainable: unobtainable due to mental status PMFSH Medical History Medical History Cerebral infarct (Acute) Constipation (Acute) DVT (deep venous thrombosis) (Acute) Dysarthria (Acute) Dysphagia (Acute) HTN (hypertension) (Acute) Scoliosis (Acute) UTI (urinary tract infection) (Acute) Weakness (Acute) Surgical History Surgical History Vascular abnormality (Acute) Family History Family History Other Family history non-contributory Osteoarthritis Social History Social History Substance History: Unable to Obtain Second Hand Smoke Exposure: No Smoking Status: Unknown if ever smoked Tobacco Type: Cigarettes How Often Do You Have a Drink Containing Alcohol: Unable to Obtain Recent Travel in [place] within the Last 8 Weeks: No Recent Out of Country Travel within the Last 8 Weeks: No Immunization History Tetanus Immunization: Unable to Assess Exam Const General: frail appearing HENMT Face and sinus: normal facial exam Eyes General: appearance normal, both eyes and all related structures Resp Effort & Inspection: normal respiratory effort Auscultation: no rhonchi and no wheezes Cardio Rate: regular rate Rhythm: regular rhythm GI Inspection: non-distended Palpation: soft and nontender Skin General: no rashes or lesions noted Neuro Other: Left-sided paresis and neglect Non-verbal Does not follow commands or make eye contact Course Initial Documented Vital Signs Temperature 98.6 F 11/10/18 15:03 Pulse Rate 108 H 11/10/18 15:03 Respiratory Rate 27 H 11/10/18 15:03 Blood Pressure 173/79 H 11/10/18 15:03 Pulse Oximetry 93 L 11/10/18 15:03 Last Documented Vital Signs Temperature 98.6 F 11/10/18 15:03 Pulse Rate 84 11/10/18 15:41 Respiratory Rate 20 11/10/18 15:41 Blood Pressure 162/72 H 11/10/18 15:41 Pulse Oximetry 96 11/10/18 15:41 Medical Decision Making [facility] Narrative Medical decision making narrative: Assessment: 88yF presenting with altered mental status Plan: EKG and monitor Labs CXR CTH UA Addendum: Patient found to have acute UTI on workup, no other significant findings on labs or imaging. This patient cannot go home as she has altered mental status in the setting of UTI. Case discussed with Darling (TALENT ACQUISITION MANAGER working with Dr. Mclain, patient's PMD). Medical Screen Exam Complete: Yes Emergency Medical Condition: Yes Differential Diagnosis Differential Diagnosis: Differential diagnosis includes, but is not limited to: UTI, PNA, dehydration, electrolyte abnormality, atypical seizure, ICH, recurrent CVA Medical Records Medical records reviewed: Yes I reviewed the patient's medical records. Lab Data Lab results reviewed: Yes I reviewed the patient's lab results. Result diagrams: 11/10/18 15:20 11/10/18 15:20 Lab Results 11/10/18 11/10/18 11/10/18 Range/Units 15:15 15:15 15:20 WBC 8.4 (4.0-11.0) th/mm3 RBC 3.30 L (4.00-5.30) mil/mm3 Hgb 13.0 (11.6-15.3) gm/dL Hct 36.5 (35.0-46.0) % MCV 110.5 H (80.0-100.0) fL MCH 39.3 H (27.0-34.0) pg MCHC 35.6 (32.0-36.0) % RDW 17.1 (11.6-17.2) % Plt Count 414 D (150-450) th/mm3 MPV 7.6 (7.0-11.0) fL Neut % (Auto) 69.6 (16.0-70.0) % Lymph % (Auto) 17.6 (9.0-44.0) % Page % (Auto) 11.1 H (0.0-8.0) % Eos % (Auto) 1.2 (0.0-4.0) % Baso % (Auto) 0.5 (0.0-2.0) % Neut # (Auto) 5.8 (1.8-7.7) th/mm3 Lymph # (Auto) 1.5 (1.0-4.8) th/mm3 Page # (Auto) 0.9 (0.0-0.9) th/mm3 Eos # (Auto) 0.1 (0.0-0.4) th/mm3 Baso # (Auto) 0.0 (0.0-0.2) th/mm3 WBC Differential . Differential Comment Auto diff final PT (9.8-11.6) sec INR Ratio Sodium (136-145) meq/L Potassium (3.5-5.1) meq/L Chloride (98-107) meq/L Carbon Dioxide (21.0-32.0) meq/L Anion Gap (5-15) meq/L BUN (7-18) mg/dL Creatinine (0.50-1.00) mg/dL Estimated GFR (>89) mL/min POC Glucose 137 H (68-110) mg/dl Random Glucose (74-106) mg/dL Lactic Acid (0.4-2.0) mmol/L Calcium (8.5-10.1) mg/dL Magnesium (1.5-2.5) mg/dL Total Bilirubin (0.2-1.0) mg/dL AST (15-37) U/L ALT (10-53) U/L Alkaline Phosphatase (45-117) U/L Ammonia (11-32) mcmol/L Troponin I (0.02-0.05) ng/mL Total Protein (6.4-8.2) g/dL Albumin (3.4-5.0) g/dL TSH (0.358-3.740) uIU/mL Urine Color Yellow (Yellw/Straw) Urine Clarity Hazy H (Clear) Urine pH 5.0 (5.0-8.5) Ur Specific Mcintosh 1.023 (1.002-1.035) Urine Protein Negative (Neg-Trace) mg/dL Urine Glucose (UA) Negative (Negative) mg/dL Urine Ketones 20 (Negative) mg/dL Urine Occult Blood Negative (Negative) Urine Nitrate Negative (Negative) Urine Bilirubin Negative (Negative) Urine Urobilinogen Less than 2 (Less than 2) mg/dL Ur Leukocyte Esterase Trace H (Negative) Urine WBC 8 H (0-5) /hpf Urine Bacteria Occasional H (None) /hpf Urine Mucus Few H (Occasional) /lpf Micro UA Comment Cath-culture ind Ur Microscopic Review Not Reportable Urine Culture Comments Cath-cult indicated 11/10/18 11/10/18 11/10/18 Range/Units 15:20 15:20 15:20 WBC (4.0-11.0) th/mm3 RBC (4.00-5.30) mil/mm3 Hgb (11.6-15.3) gm/dL Hct (35.0-46.0) % MCV (80.0-100.0) fL MCH (27.0-34.0) pg MCHC (32.0-36.0) % RDW (11.6-17.2) % Plt Count (150-450) th/mm3 MPV (7.0-11.0) fL Neut % (Auto) (16.0-70.0) % Lymph % (Auto) (9.0-44.0) % Page % (Auto) (0.0-8.0) % Eos % (Auto) (0.0-4.0) % Baso % (Auto) (0.0-2.0) % Neut # (Auto) (1.8-7.7) th/mm3 Lymph # (Auto) (1.0-4.8) th/mm3 Page # (Auto) (0.0-0.9) th/mm3 Eos # (Auto) (0.0-0.4) th/mm3 Baso # (Auto) (0.0-0.2) th/mm3 WBC Differential Differential Comment PT 10.8 (9.8-11.6) sec INR 1.1 Ratio Sodium 141 (136-145) meq/L Potassium 3.7 (3.5-5.1) meq/L Chloride 105 (98-107) meq/L Carbon Dioxide 28.2 (21.0-32.0) meq/L Anion Gap 8 (5-15) meq/L BUN 20 H (7-18) mg/dL Creatinine 0.97 (0.50-1.00) mg/dL Estimated GFR 54 L (>89) mL/min POC Glucose (68-110) mg/dl Random Glucose 130 H (74-106) mg/dL Lactic Acid (0.4-2.0) mmol/L Calcium 8.6 (8.5-10.1) mg/dL Magnesium 2.1 (1.5-2.5) mg/dL Total Bilirubin 1.3 H (0.2-1.0) mg/dL AST 43 H (15-37) U/L ALT 34 (10-53) U/L Alkaline Phosphatase 80 (45-117) U/L Ammonia Less than 10 L (11-32) mcmol/L Troponin I 0.02 (0.02-0.05) ng/mL Total Protein 7.4 (6.4-8.2) g/dL Albumin 3.0 L (3.4-5.0) g/dL TSH 2.450 (0.358-3.740) uIU/mL Urine Color (Yellw/Straw) Urine Clarity (Clear) Urine pH (5.0-8.5) Ur Specific Mcintosh (1.002-1.035) Urine Protein (Neg-Trace) mg/dL Urine Glucose (UA) (Negative) mg/dL Urine Ketones (Negative) mg/dL Urine Occult Blood (Negative) Urine Nitrate (Negative) Urine Bilirubin (Negative) Urine Urobilinogen (Less than 2) mg/dL Ur Leukocyte Esterase (Negative) Urine WBC (0-5) /hpf Urine Bacteria (None) /hpf Urine Mucus (Occasional) /lpf Micro UA Comment Ur Microscopic Review Urine Culture Comments 11/10/18 Range/Units 15:20 WBC (4.0-11.0) th/mm3 RBC (4.00-5.30) mil/mm3 Hgb (11.6-15.3) gm/dL Hct (35.0-46.0) % MCV (80.0-100.0) fL MCH (27.0-34.0) pg MCHC (32.0-36.0) % RDW (11.6-17.2) % Plt Count (150-450) th/mm3 MPV (7.0-11.0) fL Neut % (Auto) (16.0-70.0) % Lymph % (Auto) (9.0-44.0) % Page % (Auto) (0.0-8.0) % Eos % (Auto) (0.0-4.0) % Baso % (Auto) (0.0-2.0) % Neut # (Auto) (1.8-7.7) th/mm3 Lymph # (Auto) (1.0-4.8) th/mm3 Page # (Auto) (0.0-0.9) th/mm3 Eos # (Auto) (0.0-0.4) th/mm3 Baso # (Auto) (0.0-0.2) th/mm3 WBC Differential Differential Comment PT (9.8-11.6) sec INR Ratio Sodium (136-145) meq/L Potassium (3.5-5.1) meq/L Chloride (98-107) meq/L Carbon Dioxide (21.0-32.0) meq/L Anion Gap (5-15) meq/L BUN (7-18) mg/dL Creatinine (0.50-1.00) mg/dL Estimated GFR (>89) mL/min POC Glucose (68-110) mg/dl Random Glucose (74-106) mg/dL Lactic Acid 1.4 (0.4-2.0) mmol/L Calcium (8.5-10.1) mg/dL Magnesium (1.5-2.5) mg/dL Total Bilirubin (0.2-1.0) mg/dL AST (15-37) U/L ALT (10-53) U/L Alkaline Phosphatase (45-117) U/L Ammonia (11-32) mcmol/L Troponin I (0.02-0.05) ng/mL Total Protein (6.4-8.2) g/dL Albumin (3.4-5.0) g/dL TSH (0.358-3.740) uIU/mL Urine Color (Yellw/Straw) Urine Clarity (Clear) Urine pH (5.0-8.5) Ur Specific Mcintosh (1.002-1.035) Urine Protein (Neg-Trace) mg/dL Urine Glucose (UA) (Negative) mg/dL Urine Ketones (Negative) mg/dL Urine Occult Blood (Negative) Urine Nitrate (Negative) Urine Bilirubin (Negative) Urine Urobilinogen (Less than 2) mg/dL Ur Leukocyte Esterase (Negative) Urine WBC (0-5) /hpf Urine Bacteria (None) /hpf Urine Mucus (Occasional) /lpf Micro UA Comment Ur Microscopic Review Urine Culture Comments Imaging Data Radiologist's impression: Chest X-Ray 11/10/18 15:06 CONCLUSION: Mild improvement with the previously noted interstitial edema. No new or focal areas of parenchymal consolidation. Head CT 11/10/18 15:06 CONCLUSION: Stable brain appearance with no acute findings . ECG Data Attestation: I personally reviewed and interpreted this ECG as follows: Interpretation: Rate: 60-150 BPM, avg 90 BPM Rhythm: A fib Mortons Gap: Normal Intervals: Normal intervals, no blocks, QTc 410 ms Q waves: aVL T waves: Upright, no inversions ST segments: No elevations or depressions Impression: Rate controlled A fib, no changes as compared to EKG from 2017. Discharge Plan Discharge Disposition Patient Disposition: ED Admit(ED Internal Use Only) Discharge Condition Condition: Stable Discharge Order Discharge Orders: ED Use Only Admit Order (Routine); Ordered 11/10/18 Ordered By: Darling Rosas Discharge Details Diagnosis: Acute UTI, Altered mental status Physicians Team ED Provider: Darling Rosas Primary Care Provider: Bill Mclain Attending Provider: Bill Mclain Discharge Interventions Interventions: Vital Signs Last Done: 11/10/18 15:41 Status ED Status: Admitted Patient
--- NOTE | 2018-11-10 15:32 | XR ---
EXAM DATE: 11/10/2018 3:28 PM EST AGE/SEX: 88 years / Female INDICATIONS: Shortness of breath. CLINICAL DATA: This is the patient's initial encounter. Patient reports that signs and symptoms have been present for 1 day and indicates a pain score of Nonresponsive. MEDICAL/SURGICAL HISTORY: . Diabetes mellitus type II. A fib. None. [place] [facility] [place]. . FINDINGS: There has been improvement with the interstitial edema compared to the prior examination. The lungs a re grossly clear. No focal areas of parenchymal consolidation are demonstrated. The heart size is sta ble. No significant pleural effusions. The bony structures are stable. CONCLUSION: Mild improvement with the previously noted interstitial edema. No new or focal areas of parenchymal consolidation. Electronically signed by: Dennis Crystal MD Board Certified Radiologist 11/10/2018 3:31 PM EST
--- NOTE | 2018-11-10 15:42 | CT ---
EXAM DATE: 11/10/2018 3:37 PM EST AGE/SEX: 88 years / Female INDICATIONS: Altered Mental Status CLINICAL DATA: This is the patient's initial encounter. Patient reports that signs and symptoms have been present for 1 day and indicates a pain score of 0/10. MEDICAL/SURGICAL HISTORY: Deep venous thrombosis. Hypertension. None. RADIATION DOSE: 44.03 CTDI (mGy) COMPARISON: [facility] – [place], CT HEAD W/O CONTRAST, 10/31/2018. . TECHNIQUE: CT of the head without contrast. Using automated exposure control and adjustment of the mA and/or kV according to patient size, radiation dose was kept as low as reasonably achievable to ob tain optimal diagnostic quality images. DICOM format image data is available electronically for revi ew and comparison. FINDINGS: Cerebrum: The ventricles are normal for age. No evidence of midline shift, mass lesion, hemorrhage or acute infarction. No extraaxial fluid collections are seen. Posterior Fossa: The cerebellum and brainstem are intact. The 4th ventricle is midline. The cerebe llopontine angle is unremarkable. Extracranial: The visualized portion of the orbits is intact. Skull: The calvaria is intact. No evidence of skull fracture. CONCLUSION: Stable brain appearance with no acute findings . Electronically signed by: Kirill Keita MD Board Certified Radiologist 11/10/2018 3:41 PM EST
[2018-11-10 15:45] LABS: Baso % (Auto) 0.5 % (0.0-2.0); Eos # (Auto) 0.1 th/mm3 (0.0-0.4); Eos % (Auto) 1.2 % (0.0-4.0); Hematocrit 36.5 % (35.0-46.0); Lymph # (Auto) 1.5 th/mm3 (1.0-4.8); Lymph % (Auto) 17.6 % (9.0-44.0); Mean Corpuscular HGB Conc 35.6 % (32.0-36.0); Mean Corpuscular Hemoglobin 39.3 pg (27.0-34.0); Mean Corpuscular Volume 110.5 fL (80.0-100.0); Mean Platelet Volume 7.6 fL (7.0-11.0); Mono # (Auto) 0.9 th/mm3 (0.0-0.9); Mono % (Auto) 11.1 % (0.0-8.0); Neut # (Auto) 5.8 th/mm3 (1.8-7.7); Neut % (Auto) 69.6 % (16.0-70.0); Platelet Count 414 th/mm3 (150-450); Red Cell Distribution Width 17.1 % (11.6-17.2); White Blood Count 8.4 th/mm3 (4.0-11.0)
[2018-11-10 15:50] LABS: INR 1.1 Ratio; Prothrombin Time 10.8 sec (9.8-11.6)
[2018-11-10 15:51] LABS: Bacteria,Urine Occasional /hpf; Bilirubin,Urine Negative (Negative); Clarity,Urine Hazy (Clear); Glucose,Urine (UA) Negative (Negative); Leukocyte Esterase,Urine Trace (Negative); Mucus,Urine Few /lpf (Occasional); Nitrite,Urine Negative (Negative); Specific Gravity,Urine 1.023 (1.002-1.035)
[2018-11-10 15:52] LABS: Color,Urine Yellow (Yellw/Straw)
[2018-11-10] MEDS ORDERED: Levofloxacin 500 mg Premix Inj 500 MG/100 ML PIGGYBACK IV.SIG ONE (15:58)
[2018-11-10 16:01] LABS: Anion Gap 8 meq/L (5-15); Aspartate Aminotransferase 43 U/L (15-37); Blood Urea Nitrogen 20 mg/dL (7-18); Calcium 8.6 mg/dL (8.5-10.1); Carbon Dioxide 28.2 meq/L (21.0-32.0); Chloride 105 meq/L (98-107); Glomerular Filtration Rate 54 mL/min (>89); Glucose,Random 130 mg/dL (74-106); Magnesium 2.1 mg/dL (1.5-2.5); Potassium 3.7 meq/L (3.5-5.1); Sodium 141 meq/L (136-145)
[2018-11-10 16:02] LABS: Alanine Aminotransferase 34 U/L (10-53)
[2018-11-10 16:11] LABS: Alkaline Phosphatase 80 U/L (45-117); Total Protein 7.4 g/dL (6.4-8.2); Troponin I 0.02 ng/mL (0.02-0.05)
[2018-11-10] MEDS ORDERED: Bisacodyl 10 MG Supp RECTAL PRN (16:41)
[2018-11-10] MEDS ORDERED: Acetaminophen 325 MG Tablet PO PRN (16:41)
[2018-11-10] MEDS: Dextrose 5%/NaCl 0.9% Inj 1,000 ML IV.CONT SCH (17:51)
[2018-11-10] MEDS: Senna/Docusate Sodium 8.6/50 MG Tablet PO SCH (23:25)
[2018-11-11] MEDS: Dextrose 5%/NaCl 0.9% Inj 1,000 ML IV.CONT SCH ×2 (04:55→17:48)
[2018-11-11] MEDS: Senna/Docusate Sodium 8.6/50 MG Tablet PO SCH ×2 (08:09→23:37)
--- NOTE | 2018-11-11 11:53 | P.HPFP ---
History of Present Illness Service: Family Medicine Primary Care Physician: Bill Mclain DO Chief Complaint: AMS History of Present Illness: Patient presented from SNF with a several day H/O anorexia and refusing food and fluid and presented to the ED with AMS and active urinary sediment. - Diagnosis (1) Acute UTI (2) Altered mental status Inpatient Certification: I certify that the inpatient services were ordered in accordance with Medicare regulations governing the order. This includes certification that hospital inpatient services are reasonable and necessary and in the case of services not specified as inpatient-only under 42 CFR 419.22(n), that they are appropriately provided as inpatient services in accordance to with the 2-midnight benchmark under 43 CFR 412.3(e) Estimated Total Length of Stay (Days): 3 Plans for Post Hospital Care: SNF Review of Systems Constitutional: Reports weakness Eyes: Denies dry eyes Ears, Nose, Mouth, and Throat: Denies difficulty swallowing Cardiovascular: Denies chest pain Respiratory: Denies cough Gastrointestinal: Denies abdominal pain Genitourinary: Denies abnormal vaginal bleeding, Denies blood in urine Musculoskeletal: Reports muscle weakness Skin/Breast: Denies unusual bruising Neurologic: Reports behavioral changes, Reports confusion Psychiatric: Denies anxiety Endocrine: Denies cold intolerance Hematologic/Lymphatic: Denies easy bleeding Allergic/Immunologic: Denies GI upset with certain foods PMFSH - History History Provided By: Medical Record - Medical / Surgical Hx Neg / Unobtainable Medical Problems Denied: Unable to Obtain Surgical History: Unable to Obtain - Medical History Medical History: Medical History (Last Reviewed 11/11/18 @ 11:47 by Eric Luna) Cerebral infarct Constipation Dysarthria Dysphagia Scoliosis UTI (urinary tract infection) Weakness DVT (deep venous thrombosis) HTN (hypertension) - Surgical History Surgical History: Surgical History (Last Reviewed 11/11/18 @ 11:47 by Eric Luna) Vascular abnormality (Acute) - Family History Family History: Family History (Last Reviewed 11/11/18 @ 11:47 by Eric Luna) Other Family history non-contributory Osteoarthritis - Tobacco History Second Hand Smoke Exposure: No Tobacco Use In Past 30 Days: No Smoking Status: Unknown if ever smoked Tobacco Type: Cigarettes - Alcohol History How Often Do You Have a Drink Containing Alcohol: Never - Substance Use History Substance History: No History of Abuse - Travel History Recent Travel in the [place] Within the Last 8 Weeks: No Recent Travel Out of the Country Within the Last 8 Weeks: No - Immunization History Tetanus Immunization: <5 Years Hx Influenza Vaccine This Season: No Medications and Allergies Active Medications: Active Medications Acetaminophen (Tylenol) 650 mg PO Q4H PRN PRN Reason: Temp > 100.4 Al Hydroxide/Mg Hydroxide (Milk Of Magnesia Liq) 30 ml PO Q12H PRN PRN Reason: Mild Constipation Bisacodyl (Dulcolax Supp) 10 mg RECTAL DAILY PRN PRN Reason: SEVERE CONSITIPATION Dextrose/Sodium Chloride (D5w/Normal Saline Inj) 1,000 mls @ 84 mls/hr IV.CONT .[id number] [facility] Last Admin: 11/11/18 04:55 Dose: 84 mls/hr Lactulose (Lactulose Liq) 30 ml PO DAILY PRN PRN Reason: SEVERE CONSITIPATION Ondansetron HCl (Zofran Inj) 4 mg IV.PUSH Q6H PRN PRN Reason: NAUSEA OR VOMITING Senna/Docusate Sodium (Rocío-Colace) 1 tab PO BID [facility] Last Admin: 11/11/18 08:09 Dose: Not Given Sennosides (Senokot) 17.2 mg PO Q12H PRN PRN Reason: Moderate Constipation Sodium Chloride (Ns Flush) 2 ml IV.FLUSH BID [facility] Last Admin: 11/11/18 08:09 Dose: Not Given Sodium Chloride (Ns Flush) 2 ml IV.FLUSH PRN PRN PRN Reason: FLUSH AFTER USING IV ACCESS Allergies Allergy/AdvReac Type Severity Reaction Status Date / Time penicillin G Allergy Severe "VIOLENT Verified 11/10/18 15:11 REACTION" Home Medications Medication Instructions Recorded Confirmed Type losartan 25 mg PO DAILY 06/23/18 11/10/18 History magnesium citrate [Citroma] 30 ml PO DAILY PRN 10/31/18 11/10/18 History bisacodyl [Dulcolax (bisacodyl)] 10 mg RI DAILY PRN 11/10/18 11/10/18 History Exam Vital signs: Vital Signs 11/10/18 15:03 11/10/18 15:09 11/10/18 15:41 Temperature 98.6 F Pulse Rate 108 H 106 H 84 Respiratory Rate 27 H 20 Blood Pressure 173/79 H 162/72 H Pulse Oximetry 93 L 93 L 96 11/10/18 18:09 11/10/18 20:00 11/11/18 00:00 Temperature 98.1 F 97.9 F 97.3 F L Pulse Rate 89 80 87 Respiratory Rate 18 16 17 Blood Pressure 138/66 150/67 H 153/67 H Pulse Oximetry 94 L 96 93 L 11/11/18 04:00 11/11/18 08:00 Temperature 97.7 F 97.7 F Pulse Rate 87 77 Respiratory Rate 17 18 Blood Pressure 159/73 H 177/70 H Pulse Oximetry 96 99 Intake & Output 11/10/18 11/11/18 11/11/18 18:59 06:59 18:59 Intake Total 100 / 100 1000 / 1000 Balance 100 / 100 1000 / 1000 Weight 99.79 kg 81.5 kg Intake: IV 100 / 100 1000 / 1000 D5W/Normal Saline Inj 1,000 ML 1000 / 1000 @ 84 mls/hr IV.CONT .[id number] [facility] Rx#:[id number] Levaquin 500 mg Premix Inj 500 100 / 100 mg In 100 ml @ 100 mls/hr IV. SIG ONCE ONE Rx#:[id number] Oral 0 / 0 Other: Mode Setting Left Lower Anterior Leg Intermittent # Incontinent Voids 3 Weight On Admission 81.5 kg - Constitutional no acute distress, somnolent - Routine HEENT Exam Head: Present: normocephalic Eye: Present: PERRL, normal accommodation ENT: Present: mucous membranes moist - Routine Neck Exam Present: supple - Routine Respiratory Exam Present: CTA bilaterally - Routine Cardiovascular Exam Present: RRR, S1, S2 - Routine Abdominal Exam Present: soft, normoactive bowel sounds - Routine Extremities Exam Absent: cyanosis - Routine Skin Exam Present: intact - Routine Neurological Exam Present: moving all extremities Results - Labs Result diagrams: 11/10/18 15:20 11/10/18 15:20 Abnormal lab results 11/10/18 11/10/18 11/10/18 Range/Units 15:15 15:15 15:20 RBC 3.30 L (4.00-5.30) mil/mm3 MCV 110.5 H (80.0-100.0) fL MCH 39.3 H (27.0-34.0) pg [place] % (Auto) 11.1 H (0.0-8.0) % BUN (7-18) mg/dL Estimated GFR (>89) mL/min POC Glucose 137 H (68-110) mg/dl Random Glucose (74-106) mg/dL Total Bilirubin (0.2-1.0) mg/dL AST (15-37) U/L Ammonia (11-32) mcmol/L Albumin (3.4-5.0) g/dL Urine Clarity Hazy H (Clear) Ur Leukocyte Esterase Trace H (Negative) Urine WBC 8 H (0-5) /hpf Urine Bacteria Occasional H (None) /hpf Urine Mucus Few H (Occasional) /lpf 11/10/18 11/10/18 Range/Units 15:20 15:20 RBC (4.00-5.30) mil/mm3 MCV (80.0-100.0) fL MCH (27.0-34.0) pg [place] % (Auto) (0.0-8.0) % BUN 20 H (7-18) mg/dL Estimated GFR 54 L (>89) mL/min POC Glucose (68-110) mg/dl Random Glucose 130 H (74-106) mg/dL Total Bilirubin 1.3 H (0.2-1.0) mg/dL AST 43 H (15-37) U/L Ammonia Less than 10 L (11-32) mcmol/L Albumin 3.0 L (3.4-5.0) g/dL Urine Clarity (Clear) Ur Leukocyte Esterase (Negative) Urine WBC (0-5) /hpf Urine Bacteria (None) /hpf Urine Mucus (Occasional) /lpf Short CBC 11/10/18 Range/Units 15:20 WBC 8.4 (4.0-11.0) th/mm3 Hgb 13.0 (11.6-15.3) gm/dL Hct 36.5 (35.0-46.0) % Plt Count 414 D (150-450) th/mm3 BMP 11/10/18 15:20 Sodium 141 Potassium 3.7 Chloride 105 Carbon Dioxide 28.2 BUN 20 H Creatinine 0.97 Calcium 8.6 Cardiac Enzymes 11/10/18 Range/Units 15:20 Troponin I 0.02 (0.02-0.05) ng/mL Liver Function 11/10/18 Range/Units 15:20 Total Bilirubin 1.3 H (0.2-1.0) mg/dL AST 43 H (15-37) U/L ALT 34 (10-53) U/L Alkaline Phosphatase 80 (45-117) U/L Albumin 3.0 L (3.4-5.0) g/dL Urine 11/10/18 Range/Units 15:15 Urine Color Yellow (Yellw/Straw) Urine Clarity Hazy H (Clear) Urine pH 5.0 (5.0-8.5) Ur Specific [place] 1.023 (1.002-1.035) Urine Protein Negative (Neg-Trace) mg/dL Urine Glucose (UA) Negative (Negative) mg/dL - Imaging Impressions Chest X-Ray 11/10/18 15:06 CONCLUSION: Mild improvement with the previously noted interstitial edema. No new or focal areas of parenchymal consolidation. Head CT 11/10/18 15:06 CONCLUSION: Stable brain appearance with no acute findings . Caprini VTE Risk Assessment Caprini VTE Risk Assessment: Moderate/High Risk (score >= 2) Caprini Risk Assessment Model: Point Value = 1 Point Value = 2 Point Value = 3 Point Value = 5 Age 41-60 Minor surgery BMI > 25 kg/m2 Swollen legs Varicose veins or History of unexplained or recurrent spontaneous Oral contraceptives or hormone replacement Sepsis (< 1 month) Serious lung disease, including pneumonia (< 1 month) Abnormal pulmonary function Acute myocardial infarction Congestive heart failure (< 1 month) History of inflammatory bowel disease Medical patient at bed rest Age 61-74 Arthroscopic surgery Major open surgery (> 45 min) Laparoscopic surgery (> 45 min) Malignancy Confined to bed (> 72 hours) Immobilizing plaster cast Central venous access Age >= 75 History of VTE Family history of VTE Factor V Leiden Prothrombin [id number] Lupus anticoagulant Anticardiolipin antibodies Elevated serum homocysteine Heparin-induced thrombocytopenia Other congenital or acquired thrombophilia Stroke (< 1 month) Elective arthroplasty Hip, pelvis, or leg fracture Acute spinal cord injury (< 1 month) Prophylaxis Regimen: Total Risk Factor Score Risk Level Prophylaxis Regimen 0-1 Low Early ambulation 2 Moderate Order ONE of the following: *Sequential Compression Device (SCD) *Heparin 5000 units SQ BID 3-4 Higher Order ONE of the following medications: *Heparin 5000 units SQ TID *Enoxaparin/Lovenox 40 mg SQ daily (WT < 150 kg, CrCl > 30 mL/min) *Enoxaparin/Lovenox 30 mg SQ daily (WT < 150 kg, CrCl > 10-29 mL/min) *Enoxaparin/Lovenox 30 mg SQ BID (WT < 150 kg, CrCl > 30 mL/min) AND/OR *Sequential Compression Device (SCD) 5 or more Highest Order ONE of the following medications: *Heparin 5000 units SQ TID (Preferred with Epidurals) *Enoxaparin/Lovenox 40 mg SQ daily (WT < 150 kg, CrCl > 30 mL/min) *Enoxaparin/Lovenox 30 mg SQ daily (WT < 150 kg, CrCl > 10-29 mL/min) *Enoxaparin/Lovenox 30 mg SQ BID (WT < 150 kg, CrCl > 30 mL/min) AND *Sequential Compression Device (SCD) Assessment and Plan - Assessment (1) Acute UTI Code(s): N39.0 - Urinary tract infection, site not specified Status: Acute Plan: On empiric antibiotics and C&S pending (2) Altered mental status Code(s): R41.82 - Altered mental status, unspecified Status: Acute Plan: Better with IVF and antibiotics. Neuro consult is pending. She has H/O recent CVA. - Assessment and Plan 11/11/18 - She was started on IVF and empiric treatment for presumed UTI. Will allow PO today given her MS is improved. F/U Neuro consult in light of her recent AMS, hemiparesis and recent CVA. 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 H&P: Quality - VTE Deep Vein Thrombosis/Pulmonary Embolism Present on Admission: No (2) Altered mental status Qualifiers: Altered mental status type: somnolence Qualified Code(s): R40.0 - Somnolence
--- NOTE | 2018-11-11 13:32 | MB ---
cc: Jaxon Pro MD, PhD DATE: 11/11/2018 REASON FOR CONSULTATION: Mental status change. HISTORY OF PRESENT ILLNESS: Ms. Davis is an 88-year-old female who resides at a long term facility, who complains of anorexia for the past several days, confusion. She was found to have urinary tract infection. She has had no focal deficits. She denies headaches. CURRENT MEDICATIONS: 1. Tylenol. 2. Milk of magnesia. 3. Dulcolax. 4. Lactulose. 5. Zofran. 6. Rocío-Colace. 7. Senokot. 8. Levaquin. PHYSICAL EXAMINATION: VITAL SIGNS: Blood pressure is 159/73, pulse is 87, respiratory rate 17, temperature 97 degrees. NEUROLOGIC: Higher cortical function: She is alert, disoriented to date and place. Recalls 0/3 objects in 3 minutes. Remote memory is poor as well. She follows commands. There is no evidence of aphasia. Cranial nerves are intact. Motor exam is 5/5 strength in all groups. There is no drift. Fine motor skills within normal limits. Reflexes are symmetric. IMAGING STUDIES: CT of the brain: Chronic changes with no acute change present. LABORATORY DATA: White count 8400, hemoglobin 13, hematocrit 36%, platelets 414,000. PT 10.8, INR 1.1. Sodium is 141, potassium 3.7, chloride 105, CO2 28.2, BUN is 20, creatinine 0.97, GFR is 54, glucose 137, AST 43, ALT is 34. TSH 2.45. Urinalysis: The pH is 5, specific gravity 1.023, 8 WBCs are identified, trace leukocyte esterase. IMPRESSION: Probable metabolic encephalopathy. RECOMMENDATION: We will get an MRI of the brain to rule out a stroke. Jaxon Pro MD, PhD DEBBY/ts , 12:52 PM , 12:57 PM
--- NOTE | 2018-11-11 18:57 | ECG ---
Date Performed: 11/10/2018 Time Performed: 15:10:01 PTAGE: 88 years EKG: ATRIAL FIBRILLATION ABNORMAL RHYTHM ECG PREVIOUS TRACING : 10/31/2018 09.38 Since the previous tracing, no significant change noted DOCTOR: Ernst Stewart Interpretating Date/Time 11/11/2018 18:56:25
--- NOTE | 2018-11-11 20:41 | MR ---
EXAM DATE: 11/11/2018 8:29 PM EST AGE/SEX: 88 years / Female INDICATIONS: Altered mental status. CLINICAL DATA: This is the patient's initial encounter. Patient reports that signs and symptoms have been present for 1 day and indicates a pain score of 0/10. MEDICAL/SURGICAL HISTORY: Cerebrovascular disease. Hypertension. . Vascular repair. COMPARISON: [facility] – [place], [place] HEAD W/O CONTRAST, 10/31/2018. . TECHNIQUE: Multiplanar, multisequence examination of the brain was performed without contrast. FINDINGS: There are evolving small infarcts in the right frontal lobe near the vertex and a larger area near th e sylvian fissure. No new areas of infarction are identified. Moderate white matter ischemic changes. No sellar mass. No abnormal extra-axial fluid. There is cortical volume loss. CONCLUSION: 1. Evolving infarcts in the right frontal lobe anteriorly and posteriorly. No new infarct, mass effe ct or shift. Stable chronic white matter ischemic changes and cortical volume loss. Electronically signed by: Luis Brooks MD Board Certified Radiologist 11/11/2018 8:40 PM EST
[2018-11-12] MEDS: Dextrose 5%/NaCl 0.9% Inj 1,000 ML IV.CONT SCH ×2 (06:17→15:27)
[2018-11-12] MEDS: Senna/Docusate Sodium 8.6/50 MG Tablet PO SCH ×2 (08:02→21:34)
[2018-11-12 08:51] LABS: Baso # (Auto) 0.1 th/mm3 (0.0-0.2); Baso % (Auto) 0.8 % (0.0-2.0); Eos # (Auto) 0.1 th/mm3 (0.0-0.4); Eos % (Auto) 1.7 % (0.0-4.0); Hematocrit 35.2 % (35.0-46.0); Hemoglobin 12.2 gm/dL (11.6-15.3); Lymph # (Auto) 1.5 th/mm3 (1.0-4.8); Lymph % (Auto) 21.5 % (9.0-44.0); Mean Corpuscular HGB Conc 34.6 % (32.0-36.0); Mean Corpuscular Hemoglobin 38.1 pg (27.0-34.0); Mean Corpuscular Volume 110.1 fL (80.0-100.0); Mean Platelet Volume 7.8 fL (7.0-11.0); Mono # (Auto) 0.9 th/mm3 (0.0-0.9); Mono % (Auto) 13.2 % (0.0-8.0); Neut # (Auto) 4.3 th/mm3 (1.8-7.7); Neut % (Auto) 62.8 % (16.0-70.0); Platelet Count 352 th/mm3 (150-450); Red Cell Distribution Width 16.3 % (11.6-17.2); White Blood Count 6.8 th/mm3 (4.0-11.0)
[2018-11-12 09:25] LABS: Alanine Aminotransferase 43 U/L (10-53); Albumin 2.5 g/dL (3.4-5.0); Alkaline Phosphatase 73 U/L (45-117); Anion Gap 8 meq/L (5-15); Aspartate Aminotransferase 53 U/L (15-37); Blood Urea Nitrogen 9 mg/dL (7-18); Calcium 8.2 mg/dL (8.5-10.1); Carbon Dioxide 25.8 meq/L (21.0-32.0); Chloride 110 meq/L (98-107); Glomerular Filtration Rate 79 mL/min (>89); Glucose,Random 130 mg/dL (74-106); Potassium 3.3 meq/L (3.5-5.1); Sodium 144 meq/L (136-145); Total Protein 6.1 g/dL (6.4-8.2)
--- NOTE | 2018-11-12 10:30 | P.PNFP ---
Subjective Interval history: She is again confused today but perhaps more alert. She has ecchymoses on BLE and on exam tells me they hurt to palpation. Swllowing study is pending this AM and I am told head MRI is unchanged and Neuro consult is pending. Results - Labs Result diagrams: 11/12/18 06:23 11/12/18 06:23 Abnormal lab results 11/10/18 11/12/18 11/12/18 Range/Units 15:15 06:23 06:23 RBC 3.20 L (4.00-5.30) mil/mm3 MCV 110.1 H (80.0-100.0) fL MCH 38.1 H (27.0-34.0) pg [place] % (Auto) 13.2 H (0.0-8.0) % Potassium 3.3 L (3.5-5.1) meq/L Chloride 110 H (98-107) meq/L Estimated GFR 79 L (>89) mL/min Random Glucose 130 H (74-106) mg/dL Calcium 8.2 L (8.5-10.1) mg/dL Total Bilirubin 1.2 H (0.2-1.0) mg/dL AST 53 H (15-37) U/L Total Protein 6.1 L D (6.4-8.2) g/dL Albumin 2.5 L (3.4-5.0) g/dL Urine Clarity Hazy H (Clear) Ur Leukocyte Esterase Trace H (Negative) Urine WBC 8 H (0-5) /hpf Urine Bacteria Occasional H (None) /hpf Urine Mucus Few H (Occasional) /lpf Short CBC 11/12/18 Range/Units 06:23 WBC 6.8 (4.0-11.0) th/mm3 Hgb 12.2 (11.6-15.3) gm/dL Hct 35.2 (35.0-46.0) % Plt Count 352 (150-450) th/mm3 BMP 11/12/18 06:23 Sodium 144 Potassium 3.3 L Chloride 110 H Carbon Dioxide 25.8 BUN 9 Creatinine 0.70 Calcium 8.2 L Liver Function 11/12/18 Range/Units 06:23 Total Bilirubin 1.2 H (0.2-1.0) mg/dL AST 53 H (15-37) U/L ALT 43 (10-53) U/L Alkaline Phosphatase 73 (45-117) U/L Albumin 2.5 L (3.4-5.0) g/dL Urine 11/10/18 Range/Units 15:15 Urine Color Yellow (Yellw/Straw) Urine Clarity Hazy H (Clear) Urine pH 5.0 (5.0-8.5) Ur Specific [place] 1.023 (1.002-1.035) Urine Protein Negative (Neg-Trace) mg/dL Urine Glucose (UA) Negative (Negative) mg/dL - Imaging Impressions Head MRI 11/11/18 00:00 CONCLUSION: 1. Evolving infarcts in the right frontal lobe anteriorly and posteriorly. No new infarct, mass effect or shift. Stable chronic white matter ischemic changes and cortical volume loss. Physical Exam Vital signs: Vital Signs 11/11/18 12:00 11/11/18 16:00 11/11/18 20:00 Temperature 97.4 F L 98 F 97.9 F Pulse Rate 89 99 H 98 H Respiratory Rate 18 18 19 Blood Pressure 132/61 159/76 H 147/63 H Pulse Oximetry 97 96 96 11/12/18 00:00 11/12/18 04:00 11/12/18 08:00 Temperature 97.9 F 98.1 F 97 F L Pulse Rate 98 H 93 H 80 Respiratory Rate 19 17 18 Blood Pressure 147/63 H 149/65 H 131/74 Pulse Oximetry 96 96 96 Intake & Output 11/11/18 11/12/18 11/12/18 18:59 06:59 18:59 Intake Total 1000 / 1000 801 / 801 199 / 199 Output Total 100 / 100 Balance 1000 / 1000 701 / 701 199 / 199 Weight 84.2 kg Intake: IV 1000 / 1000 801 / 801 199 / 199 D5W/Normal Saline Inj 1,000 ML 1000 / 1000 801 / 801 199 / 199 @ 84 mls/hr IV.CONT .[id number] [facility] Rx#:[id number] Oral 0 / 0 0 / 0 Output: Urine 100 / 100 Other: # Voids 3 1 # Bowel Movements 0 - Constitutional no acute distress, chronically ill appearing - Routine HEENT Exam Head: Present: normocephalic, atraumatic Eye: Present: normal accommodation ENT: Present: mucous membranes moist - Routine Neck Exam Present: supple - Routine Respiratory Exam Present: CTA bilaterally, distant breath sounds - Routine Cardiovascular Exam Present: RRR, S1, S2 - Routine Abdominal Exam Present: soft, normoactive bowel sounds - Routine Extremities Exam Absent: cyanosis - Routine Skin Exam Present: wounds Comments: ecchymoses BLE - Routine Neurological Exam Present: altered mental status - Detailed Neurological Exam: Coma Scale Eye Opening: Spontaneous Verbal Response: Confused Motor Response: Obey commands [place] Coma Scale Total: 14 - Routine Psychiatric Exam Present: unable to assess - Urinary Catheter Management Straight Cath placed during this visit: yes, but has since been removed by the nurse Reason for continuing: Decision to DC catheter Insertion date: 11/10/18 Insertion time: 15:09 Removal date: 11/10/18 Removal time: 00:00 Assessment and Plan - Assessment (1) Acute UTI Code(s): N39.0 - Urinary tract infection, site not specified Status: Acute Plan: On empiric antibiotics and sensitivity is pending but culture is >100,000 Group D enterococcus. (2) Altered mental status Code(s): R41.82 - Altered mental status, unspecified Status: Acute Plan: Better with IVF and antibiotics. Neuro consult is pending. She has H/O recent CVA. Swallowing study to be performed today. MRI reportedly without new findings from previous CVA. - Assessment and Plan 11/11/18 - She was started on IVF and empiric treatment for presumed UTI. Will allow PO today given her MS is improved. F/U Neuro consult in light of her recent AMS, hemiparesis and recent CVA. 11/12/18 - On antibiotics and urine growing enterococcus and sensitivity is pending. Neuro eval ongoing and MRI reveals no new infarct. Swallowing study to be done today. 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 Discharge Planning: SNF when cleared by Neuro. (2) Altered mental status Qualifiers: Altered mental status type: somnolence Qualified Code(s): R40.0 - Somnolence
[2018-11-13] MEDS: Dextrose 5%/NaCl 0.9% Inj 1,000 ML IV.CONT SCH ×3 (04:56→17:15)
[2018-11-13] MEDS: Senna/Docusate Sodium 8.6/50 MG Tablet PO SCH ×2 (08:05→20:54)
--- NOTE | 2018-11-13 08:56 | P.PN ---
Subjective Interval history: Patient seen and examined this morning, their vitals are stable and the patient is afebrile. No changes overnight. Patient is alert. At times responds to questions. States she has pain in her legs. Physical Exam Vital signs: Vital Signs 11/12/18 12:00 11/12/18 16:00 11/12/18 20:00 Temperature 98 F 97.8 F 98 F Pulse Rate 92 H 90 101 H Respiratory Rate 18 18 16 Blood Pressure 158/66 H 152/65 H 157/78 H Pulse Oximetry 96 96 97 11/13/18 00:00 11/13/18 04:00 11/13/18 08:00 Temperature 97.7 F 97.1 F L 97.9 F Pulse Rate 87 81 90 Respiratory Rate 17 16 16 Blood Pressure 168/78 H 175/75 H 157/72 H Pulse Oximetry 97 96 98 Intake & Output 11/12/18 11/13/18 11/13/18 18:59 06:59 18:59 Intake Total 199 / 199 423 / 423 Output Total 800 / 800 700 / 700 Balance -601 / -601 -277 / -277 Weight 83 kg Intake: IV 199 / 199 423 / 423 D5W/Normal Saline Inj 1,000 ML 199 / 199 423 / 423 @ 84 mls/hr IV.CONT .[id number] [facility] Rx#:[id number] Output: Urine 800 / 800 700 / 700 Other: # Bowel Movements 0 Narrative: GENERAL: Well-appearing, no acute distress SKIN: Warm and dry. Ecchymosis on upper extremities, lower extremities, sores on anterior shins with dressing HEAD: Normocephalic. EYES: No scleral icterus. No injection or drainage. NECK: Supple, trachea midline. No JVD or lymphadenopathy. CARDIOVASCULAR: Regular rate and rhythm without murmurs, gallops, or rubs. RESPIRATORY: Breath sounds equal bilaterally. No accessory muscle use. GASTROINTESTINAL: Abdomen soft, non-tender, nondistended. MUSCULOSKELETAL: No cyanosis, or edema. - Urinary Catheter Management Straight Cath placed during this visit: yes, but has since been removed by the nurse Reason for continuing: Decision to DC catheter Insertion date: 11/10/18 Insertion time: 15:09 Removal date: 11/10/18 Removal time: 00:00 Results - Labs CBC & Chem 7: 11/12/18 06:23 11/12/18 06:23 Laboratory Results - last 24 hr 11/12/18 11/12/18 06:23 06:23 WBC 6.8 RBC 3.20 L Hgb 12.2 Hct 35.2 MCV 110.1 H MCH 38.1 H MCHC 34.6 RDW 16.3 Plt Count 352 MPV 7.8 Neut % (Auto) 62.8 Lymph % (Auto) 21.5 [place] % (Auto) 13.2 H Eos % (Auto) 1.7 Baso % (Auto) 0.8 Neut # (Auto) 4.3 Lymph # (Auto) 1.5 [place] # (Auto) 0.9 Eos # (Auto) 0.1 Baso # (Auto) 0.1 WBC Differential . Differential Comment Auto diff final Sodium 144 Potassium 3.3 L Chloride 110 H Carbon Dioxide 25.8 Anion Gap 8 BUN 9 Creatinine 0.70 Estimated GFR 79 L Random Glucose 130 H Calcium 8.2 L Total Bilirubin 1.2 H AST 53 H ALT 43 Alkaline Phosphatase 73 Total Protein 6.1 L D Albumin 2.5 L Microbiology 11/10/18 15:20 Blood - Peripheral Aerobic Blood Culture - Preliminary No growth in 2 days 11/10/18 15:20 Blood - Peripheral Anaerobic Blood Culture - Preliminary No growth in 2 days 11/10/18 15:15 Blood - Peripheral Aerobic Blood Culture - Preliminary No growth in 2 days 11/10/18 15:15 Blood - Peripheral Anaerobic Blood Culture - Preliminary No growth in 2 days 11/10/18 15:15 Clean Catch Urine Urine Culture - Final Enterococcus faecalis Assessment and Plan - Plan This is an 88-year-old female patient who presented from SNF with several days of decreased p.o. intake who presented with altered mental status. UTI -Urine culture growing enterococcus for faecalis, was previously on Levaquin IV , not currently on antibiotics. Sensitivities show sensitivity to penicillin, daptomycin, and nitroturantoin. 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 No new infarct, mass-effect or shift. Stable chronic white matter ischemic changes and cortical volume loss. -Neuro has seen and evaluated the patient: Okay to resume patient's Eliquis 2.5 mg twice daily, okay to DC to [facility] will follow up with neurology in 3 weeks Hypokalemia - replaced DVT proph Discharge planning: back to SNF
--- NOTE | 2018-11-13 09:24 | P.PNNEU ---
Subjective Subjective Comments: no new neuro sx. Active Medications: Active Medications Acetaminophen (Tylenol) 650 mg PO Q4H PRN PRN Reason: Temp > 100.4 Al Hydroxide/Mg Hydroxide (Milk Of Magnesia Liq) 30 ml PO Q12H PRN PRN Reason: Mild Constipation Bisacodyl (Dulcolax Supp) 10 mg RECTAL DAILY PRN PRN Reason: SEVERE CONSITIPATION Dextrose/Sodium Chloride (D5w/Normal Saline Inj) 1,000 mls @ 84 mls/hr IV.CONT .[id number] [facility] Last Infusion: 11/13/18 08:06 Dose: 0 mls/hr Lactulose (Lactulose Liq) 30 ml PO DAILY PRN PRN Reason: SEVERE CONSITIPATION Nitro[facility]in [facility]roc[facility] Ondansetron HCl (Zofran Inj) 4 mg IV.PUSH Q6H PRN PRN Reason: NAUSEA OR VOMITING Potassium Chloride (K-Dur) 20 meq PO ONCE ONE Stop: 11/13/18 08:56 Senna/Docusate Sodium (Rocío-Colace) 1 tab PO BID [facility] Last Admin: 11/13/18 08:05 Dose: Not Given Sennosides (Senokot) 17.2 mg PO Q12H PRN PRN Reason: Moderate Constipation Sodium Chloride (Ns Flush) 2 ml IV.FLUSH BID [facility] Last Admin: 11/13/18 08:05 Dose: Not Given Sodium Chloride (Ns Flush) 2 ml IV.FLUSH PRN PRN PRN Reason: FLUSH AFTER USING IV ACCESS Allergies/Adverse Reactions: Allergies Allergy/AdvReac Type Severity Reaction Status Date / Time penicillin G Allergy Severe "VIOLENT Verified 11/10/18 15:11 REACTION" Physical Exam Vital signs: Vital Signs 11/12/18 12:00 11/12/18 16:00 11/12/18 20:00 Temperature 98 F 97.8 F 98 F Pulse Rate 92 H 90 101 H Respiratory Rate 18 18 16 Blood Pressure 158/66 H 152/65 H 157/78 H Pulse Oximetry 96 96 97 11/13/18 00:00 11/13/18 04:00 11/13/18 08:00 Temperature 97.7 F 97.1 F L 97.9 F Pulse Rate 87 81 90 Respiratory Rate 17 16 16 Blood Pressure 168/78 H 175/75 H 157/72 H Pulse Oximetry 97 96 98 Intake & Output 11/12/18 11/13/18 11/13/18 18:59 06:59 18:59 Intake Total 199 / 199 423 / 423 Output Total 800 / 800 700 / 700 Balance -601 / -601 -277 / -277 Weight 83 kg Intake: IV 199 / 199 423 / 423 D5W/Normal Saline Inj 1,000 ML 199 / 199 423 / 423 @ 84 mls/hr IV.CONT .[id number] [facility] Rx#:[id number] Output: Urine 800 / 800 700 / 700 Other: # Bowel Movements 0 - Routine Neurological Exam lethargic but arouses oriented to place and date. Speech is dysarthric CN intact MOTOR--mild left weak. 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 SHows evolvong right hemisphere cva similar to MRI of 10/31 Laboratory Results - last 24 hr 11/12/18 06:23 Sodium 144 Potassium 3.3 L Chloride 110 H Carbon Dioxide 25.8 Anion Gap 8 BUN 9 Creatinine 0.70 Estimated GFR 79 L Random Glucose 130 H Calcium 8.2 L Total Bilirubin 1.2 H AST 53 H ALT 43 Alkaline Phosphatase 73 Total Protein 6.1 L D Albumin 2.5 L Microbiology 11/10/18 15:20 Aerobic Blood Culture - Preliminary Blood - Peripheral No growth in 2 days Anaerobic Blood Culture - Preliminary No growth in 2 days 11/10/18 15:15 Aerobic Blood Culture - Preliminary Blood - Peripheral No growth in 2 days Anaerobic Blood Culture - Preliminary No growth in 2 days 11/10/18 15:15 Urine Culture - Final Clean Catch Urine Enterococcus faecalis Review/Management - Review/Management Plan: resume eliquis 2.5 mg bid which was started last admission due to possible history of afib. Ok to dc to SNF from neuro standpoint Follow up with me in 3 weeks
[2018-11-13] MEDS: Nitrofurantoin Monohydrate-Macrocrystal 100 MG Capsule PO SCH ×2 (11:10→18:03)
--- NOTE | 2018-11-13 15:51 | P.DS ---
Date of admission: 11/10/18 16:12 Primary care physician: Bill Mclain DO Brief History from admission: Patient presented from SNF with a several day H/O anorexia and refusing food and fluid and presented to the ED with AMS and active urinary sediment. Patient update on day of discharge: Subjective: Patient seen and examined this morning, their vitals are stable and the patient is afebrile. No changes overnight. Patient is alert. At times responds to questions. States she has pain in her legs. DS: Diagnosis - Discharge Diagnosis (1) Fall at home Status: Acute (2) Stroke Status: Acute (3) Acute UTI Status: Acute (4) Altered mental status Status: Acute DS: Medications - Discharge Medications Prescriptions: nitrofurantoin monohyd/m-cryst 100 mg PO BIDPC 5 Days cap DS: Summary Hospital Course: This is an 88-year-old female patient who presented from SNF with several days of decreased p.o. intake who presented with altered mental status. UA was suggestive of a UTI, urine culture grew enterococcus. She is previously on IV Levaquin. Once sensitivities resulted I started the patient on p.o. nitrofurantoin. Patient underwent CT and MRI for altered mental status. CT was normal. MRI showed evolving infarcts in the right frontal lobe anterior and posteriorly. No new infarcts. Neuro saw and evaluated the patient. [place] the changes and MRI were stable and chronic in nature. They okayed the patient to be restarted on Eliquis at 2.5 mg twice daily. Patient was deemed medically stable he reached maximum inpatient hospital benefit by November 13, 2019. She underwent a swallow study and past and was able to have a pured diet that consisted of honey thickened liquids. Patient to be discharged back to her SNF. - Time Spent with Patient Total time spent providing and/or coordinating discharge services: Less than 30 minutes - Quality: VTE Deep Vein Thrombosis/Pulmonary Embolism Present on Admission: No Exam Vital signs: Vital Signs 11/12/18 16:00 11/12/18 20:00 11/13/18 00:00 Temperature 97.8 F 98 F 97.7 F Pulse Rate 90 101 H 87 Respiratory Rate 18 16 17 Blood Pressure 152/65 H 157/78 H 168/78 H Pulse Oximetry 96 97 97 11/13/18 04:00 11/13/18 08:00 11/13/18 12:00 Temperature 97.1 F L 97.9 F 97.4 F L Pulse Rate 81 90 89 Respiratory Rate 16 16 16 Blood Pressure 175/75 H 157/72 H 182/79 H Pulse Oximetry 96 98 97 Intake & Output 11/12/18 11/13/18 11/13/18 18:59 06:59 18:59 Intake Total 199 / 199 423 / 423 577 / 577 Output Total 800 / 800 700 / 700 Balance -601 / -601 -277 / -277 577 / 577 Weight 83 kg Intake: IV 199 / 199 423 / 423 577 / 577 D5W/Normal Saline Inj 1,000 ML 199 / 199 423 / 423 577 / 577 @ 84 mls/hr IV.CONT .[id number] [facility] Rx#:[id number] Output: Urine 800 / 800 700 / 700 Other: # Bowel Movements 0 Narrative: GENERAL: Well-appearing, no acute distress SKIN: Warm and dry. Ecchymosis on upper extremities, lower extremities, sores on anterior shins with dressing HEAD: Normocephalic. EYES: No scleral icterus. No injection or drainage. NECK: Supple, trachea midline. No JVD or lymphadenopathy. CARDIOVASCULAR: Regular rate and rhythm without murmurs, gallops, or rubs. RESPIRATORY: Breath sounds equal bilaterally. No accessory muscle use. GASTROINTESTINAL: Abdomen soft, non-tender, nondistended. MUSCULOSKELETAL: No cyanosis, or edema. Results Procedures completed during hospitalization: none Labs on day of discharge: Preliminary micro results at discharge 11/10/18 15:20 Aerobic Blood Culture - Preliminary Blood - Peripheral No growth in 3 days Anaerobic Blood Culture - Preliminary No growth in 3 days 11/10/18 15:15 Aerobic Blood Culture - Preliminary Blood - Peripheral No growth in 3 days Anaerobic Blood Culture - Preliminary No growth in 3 days - Impressions ITS Impressions Chest X-Ray 11/10/18 15:06 CONCLUSION: Mild improvement with the previously noted interstitial edema. No new or focal areas of parenchymal consolidation. Head CT 11/10/18 15:06 CONCLUSION: Stable brain appearance with no acute findings . Head MRI 11/11/18 00:00 CONCLUSION: 1. Evolving infarcts in the right frontal lobe anteriorly and posteriorly. No new infarct, mass effect or shift. Stable chronic white matter ischemic changes and cortical volume loss. Discharge Plan - Discharge Disposition Patient Disposition: Discharge to SNF - Discharge Condition Condition: Stable - Discharge Order Discharge Orders: Discharge Order (Routine); Ordered 11/13/18 Ordered By: Rosemarie Velázquez - Discharge Details Anticipated Discharge Date: 11/13/18 Discharge Comment: D/C pending--> ALIVIA quintero - Physicians Team Primary Care Provider: Bill Mclain Attending Provider: Bill Mclain Other Providers: Jaxon Pro MD, PhD ; [employer]urance ; Rosemarie Velázquez MD
[2018-11-14] MEDS: Dextrose 5%/NaCl 0.9% Inj 1,000 ML IV.CONT SCH ×4 (02:39→16:16)
[2018-11-14] MEDS: Nitrofurantoin Monohydrate-Macrocrystal 100 MG Capsule PO SCH ×2 (08:14→17:05)
[2018-11-14] MEDS: Senna/Docusate Sodium 8.6/50 MG Tablet PO SCH ×2 (08:14→23:06)
--- NOTE | 2018-11-14 08:50 | P.PN ---
Subjective Interval history: Patient seen and examined this morning, their vitals are stable and the patient is afebrile. No overnight events. Answers questions appropriately, then makes statements that do not make sense (asking if Im coming over for dinner). Denies CP or SOB. Reports some shoulder pain. Asking for toast and eggs. Physical Exam Vital signs: Vital Signs 11/13/18 12:00 11/13/18 16:00 11/13/18 20:00 Temperature 97.4 F L 98.6 F 98.1 F Pulse Rate 89 83 94 H Respiratory Rate 16 16 16 Blood Pressure 182/79 H 154/86 H 174/75 H Pulse Oximetry 97 96 97 11/14/18 00:00 11/14/18 04:23 Temperature 97.8 F 97.6 F Pulse Rate 93 H 88 Respiratory Rate 16 16 Blood Pressure 148/60 H 147/66 H Pulse Oximetry 99 96 Intake & Output 11/13/18 11/14/18 11/14/18 18:59 06:59 18:59 Intake Total 937 / 937 1000 / 1000 Output Total 250 / 250 750 / 750 Balance 687 / 687 250 / 250 Weight 81 kg Intake: IV 577 / 577 1000 / 1000 D5W/Normal Saline Inj 1,000 ML 577 / 577 1000 / 1000 @ 84 mls/hr IV.CONT .[id number] [facility] Rx#:[id number] Oral 360 / 360 Output: Urine 250 / 250 750 / 750 Other: # Incontinent Voids 1 # Bowel Movements 0 Narrative: GENERAL: Well-appearing, no acute distress SKIN: Warm and dry. Ecchymosis on upper extremities, lower extremities, sores on anterior shins with dressing HEAD: Normocephalic. EYES: No scleral icterus. No injection or drainage. NECK: Supple, trachea midline. No JVD or lymphadenopathy. CARDIOVASCULAR: Regular rate and rhythm without murmurs, gallops, or rubs. RESPIRATORY: Breath sounds equal bilaterally. No accessory muscle use. GASTROINTESTINAL: Abdomen soft, non-tender, nondistended. MUSCULOSKELETAL: No cyanosis, or edema. - Urinary Catheter Management Straight Cath placed during this visit: yes, but has since been removed by the nurse Reason for continuing: Decision to DC catheter Insertion date: 11/10/18 Insertion time: 15:09 Removal date: 11/10/18 Removal time: 00:00 Results - Labs CBC & Chem 7: 11/12/18 06:23 11/12/18 06:23 Microbiology 11/10/18 15:20 Blood - Peripheral Aerobic Blood Culture - Preliminary No growth in 3 days 11/10/18 15:20 Blood - Peripheral Anaerobic Blood Culture - Preliminary No growth in 3 days 11/10/18 15:15 Blood - Peripheral Aerobic Blood Culture - Preliminary No growth in 3 days 11/10/18 15:15 Blood - Peripheral Anaerobic Blood Culture - Preliminary No growth in 3 days - Procedures none Assessment and Plan - Assessment (1) Fall at home Code(s): W19.XXXA - Unspecified fall, initial encounter; Y92.009 - Unspecified place in unspecified non-institutional (private) residence as the place of occurrence of the external cause Status: Acute (2) Stroke Code(s): I63.9 - Cerebral infarction, unspecified Status: Acute (3) Acute UTI Code(s): N39.0 - Urinary tract infection, site not specified Status: Acute (4) Altered mental status Code(s): R41.82 - Altered mental status, unspecified Status: Acute - Plan This is an 88-year-old female patient who presented from SNF with several days of decreased p.o. intake who presented with altered mental status. Patient has become more alert and awake. The problem remains that she continues not to take much by mouth. On November 14 I did call the patient's next of kin who is her son Zan. I updated him on the care of his mother. Unfortunately Zan has a daughter who is in the ICU at [place] and so him and his have been away and have not been able to visit the mother. They would like a meeting with palliative care over the phone to discuss goals of care and if feeding tube is the next direction they would like to go in. I will update the case management on this. Decreased PO intake -Swallow study has been performed and recommendation is for pured diet with honey thick liquids, she needs to be fed, she needs cues for patient to swallow. Although the patient cannot take her pills by mouth and will take a spoonful of food at that time she is not still eating. -Consult palliative care for family meeting to decide about PEG tube. UTI -Urine culture growing enterococcus for faecalis, was previously on Levaquin IV , not currently on antibiotics. Sensitivities show sensitivity to penicillin, daptomycin, and nitroturantoin. 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 No new infarct, mass-effect or shift. Stable chronic white matter ischemic changes and cortical volume loss. -Neuro has seen and evaluated the patient: Okay to resume patient's Eliquis 2.5 mg twice daily, okay to DC to sniff will follow up with neurology in 3 weeks Hypokalemia - replaced DVT proph Discharge planning: will be returning back to her SNF Discussed Condition With: Nurse Patient next of kin son Zan (2) Stroke Qualifiers: CVA mechanism: unspecified Qualified Code(s): I63.9 - Cerebral infarction, unspecified (4) Altered mental status Qualifiers: Altered mental status type: somnolence Qualified Code(s): R40.0 - Somnolence
--- NOTE | 2018-11-14 09:29 | P.PNPAL ---
Palliative care consulted to assist with addressing goals of medical treatment. Ms. Davis presents with oral intake and [facility] will not accept her back without feeding being addressed. Palliative care contacted son, Zan. He states he was told palliative care would be reaching out to him tomorrow, Wednesday 11/15. He is currently unavailable to have a phone conference with palliative care. Family meeting via telephone set up for Wednesday 11/15 between 1030-11am.
[2018-11-14 13:14] LABS: Calcium 8.3 mg/dL (8.5-10.1); Carbon Dioxide 26.9 meq/L (21.0-32.0); Potassium 3.4 meq/L (3.5-5.1)
--- NOTE | 2018-11-14 16:16 | P.CONPAL ---
Consult Service: Palliative Care Requesting Physician: Rosemarie Velázquez Reason for Consult: a. To assist with evaluation and management of symptoms including: pain, dysphagia b. To assist medical decision maker(s) with: better understanding of current medical conditions; weighing benefits/burdens of medical treatment options; making medical treatment decisions. Primary Care Provider: Bill Mclain DO History of Present Illness History of Present Illness: This 88-year-old female presented to the ED on 11/10/18, via EMS from her nursing facility for AMS and she was nonverbal and unable to provide additional history. residential reports patient not eating drinking or speaking but unclear when this started. Noted to have multiple recent admissions in the past 1 month most recently 10/31 for CVA. Patient at that time noted to have left-sided hemineglect but conversational though dysarthric. * ED findings of UTI otherwise labs and imaging unremarkable. CXR with mild improvement in previously noted interstitial edema. Head CT stable brain no acute finding. she was planned for admission for further evaluation and management of UTI. * Neurology consulted: Probable metabolic encephalopathy repeat brain MRI rule out new stroke. MRI brain =Evolving infarcts in the right frontal lobe anteriorly and posteriorly. No new infarct, mass effect or shift. Stable chronic white matter ischemic changes and cortical volume loss. * ST following; patient confused pulling it closed. Tolerating honey thick liquids and pures 1 teaspoon at a time but does exhibit abnormal bolus holding , require significant cues. Recommends n.p.o. unlikely to meet nutritional needs. * 11/13 Eliquis resumed per neurology, which was started last admission due to the A. fib. Okay to DC to SNF from neuro standpoint follow-up in 3 weeks. Discharge planning in process, ST continues to follow recommends pured diet with honey thick liquids, patient requires verbal cues needs to be fed. * 11/14 still with some mild confusion, though more alert and appropriate. Stable. Blood culture no growth times 3 days. Patient still with very poor oral intake. Medical attending contacted patient's son Zan. Son Zan reports they have a daughter in ICU in [place] so have been unable to visit patient here. They are open to meeting with palliative/ medical team to further discuss goals of medical treatment. Palliative care consulted for clarification of goals of medical treatment. * Palliative RIKI FORTUNE contacted son Zan, he was unavailable for phone consultation meeting today however he is in agreement for telephone meeting tomorrow around 10:30 AM. Additional psychosocial, medical history to be obtained at that time. Patient seen in room no visitors present. She is alert and watching television. She is oriented to self, hospital states that she 2028 though when I correct 2019 she agrees. States the month is October, advised that today was November 14 she said "oh new years already". She is oriented to self, family. She tells me she has 2 sons one local, one in [place] and a daughter who is . She knows she is in the hospital though she is unable to tell me exactly why. She endorses feeling "terrible". Ask her to further qualify, she indicates that she hurts all over. Explore her eating and poor appetite, she tells me everyone keeps talking to her about that, and that she will eat what she likes when she wants. Endorses that her stomach hurts when she eats. No nausea but generalized stomach aching intermittently when she eats. She is unable to further describe. No pain today with light palpation. She is generally cooperative with exam but asks me "why do you care about that now " when asking her further questions regarding ROS, poor appetite etc. Advised I could talk to her tomorrow morning if she is feeling more up to it and then she is in agreement with that if she is awake she tells me she does not like to rise early. Advised I would call and update her son Zan , she requests I do so tomorrow but not today. Patient noted with recent hospitalization 10/31/18- 11/03--she presented then from SNF noting that she had altered mental status. She was treated as a stroke alert, last seen normal 7 PM the night before. Not TPA candidate. During that admission imaging noted scattered old lacunar infarcts within bilateral basal ganglia. 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 EKG with possible A. fib but artifacts. Possible cardioembolic event. CTA brain and carotids negative. May reinitiate oral anticoagulation depending clinical course. PT notes left-sided neglect able to sit on side of bed with moderate assistance. Very weak. ST followed; she was verbalizing however had some moderate pharyngeal dysphasia recommended for pured diet with honey thick liquids. She required max cues. She was discharged back to SNF 11/03. She was also treated in the hospital 10/27 for rhabdomyolysis. Eliquis was discontinued at that time. During another previous hospitalization 06/2018 hematology was consulted for DVT and possible "failed Eliquis "--noted that she had not been entirely consistent in taking this medication and also was forgetful and at times a poor historian. Function/Cognitive Trajectory: Most recently in SNF following stroke for increased assistance with ADLs. Per medical records in prior years did live at home independently though had hired caregiver to assist in the home. PT lola here 06/24/18 notes that patient lived at home alone using a 4 wheeled walker wheelchair as needed. Limited mobility inside the residence. At that time she was a & O x3. [facility] - History History Provided By: Medical Record - Medical / Surgical Hx Neg / Unobtainable Medical Problems Denied: Unable to Obtain - Medical History Medical History: Medical History (Last Updated 11/14/18 @ 16:20 by MARIELA Ryan) Cerebral infarct Constipation Dysarthria Dysphagia Scoliosis UTI (urinary tract infection) Weakness DVT (deep venous thrombosis) HTN (hypertension) - Surgical History Surgical History: Surgical History (Last Updated 11/14/18 @ 16:20 by MARIELA Ryan) Vascular abnormality (Acute) History of amputation of toe History of hip replacement - Family History Family History: Family History (Last Reviewed 11/14/18 @ 16:20 by MARIELA Ryan) Other Family history non-contributory Osteoarthritis - Tobacco History Second Hand Smoke Exposure: No Tobacco Use In Past 30 Days: No Smoking Status: Former smoker (smoked very short time in her 20s) Tobacco Type: Cigarettes - Alcohol History How Often Do You Have a Drink Containing Alcohol: Never - Substance Use History Substance History: No History of Abuse - Travel History Recent Travel in the [place] Within the Last 8 Weeks: No Recent Travel Out of the Country Within the Last 8 Weeks: No - Immunization History Tetanus Immunization: <5 Years Hx Influenza Vaccine This Season: No Medications and Allergies Active Medications: Active Medications Acetaminophen (Tylenol) 650 mg PO Q4H PRN PRN Reason: Temp > 100.4 Al Hydroxide/Mg Hydroxide (Milk Of Magnesia Liq) 30 ml PO Q12H PRN PRN Reason: Mild Constipation Apixaban (Eliquis) 2.5 mg PO BID MICHELLE Last Admin: 11/14/18 08:15 Dose: 2.5 mg Bisacodyl (Dulcolax Supp) 10 mg RECTAL DAILY PRN PRN Reason: SEVERE CONSITIPATION Dextrose/Sodium Chloride (D5w/Normal Saline Inj) 1,000 mls @ 42 mls/hr IV.CONT .[id number] [facility] Last Admin: 11/14/18 13:20 Dose: 42 mls/hr Lactulose (Lactulose Liq) 30 ml PO DAILY PRN PRN Reason: SEVERE CONSITIPATION Nitrofurantoin Macrocrystals (Macrobid) 100 mg PO BIDPC [facility] Last Admin: 11/14/18 08:14 Dose: 100 mg Ondansetron HCl (Zofran Inj) 4 mg IV.PUSH Q6H PRN PRN Reason: NAUSEA OR VOMITING Senna/Docusate Sodium (Rocío-Colace) 1 tab PO BID [facility] Last Admin: 11/14/18 08:14 Dose: 1 tab Sennosides (Senokot) 17.2 mg PO Q12H PRN PRN Reason: Moderate Constipation Sodium Chloride (Ns Flush) 2 ml IV.FLUSH BID [facility] Last Admin: 11/14/18 08:15 Dose: Not Given Sodium Chloride (Ns Flush) 2 ml IV.FLUSH PRN PRN PRN Reason: FLUSH AFTER USING IV ACCESS Allergies Allergy/AdvReac Type Severity Reaction Status Date / Time penicillin G Allergy Severe "VIOLENT Verified 11/10/18 15:11 REACTION" Home Medications Medication Instructions Recorded Confirmed Type losartan 25 mg PO DAILY 06/23/18 11/10/18 History magnesium citrate [Citroma] 30 ml PO DAILY PRN 10/31/18 11/10/18 History bisacodyl [Dulcolax (bisacodyl)] 10 mg SC DAILY PRN 11/10/18 11/10/18 History Advance Directives Ethical and Legal Issues: unk advanced directive status at this time. Patient with some confusion and unable to make her own decisions. Son Zan has been serving as contact and support. Palliative plans to meet with the son tomorrow to gain additional information. Reported she has 2 adult children, by statutes both of these may be appropriate legal proxy unless one is designated as surrogate. Physical Exam Vital Signs: Vital Signs - 24 hr 11/13/18 16:00 11/13/18 20:00 11/14/18 00:00 Temperature 98.6 F 98.1 F 97.8 F Pulse Rate 83 94 H 93 H Respiratory Rate 16 16 16 Blood Pressure 154/86 H 174/75 H 148/60 H Pulse Oximetry 96 97 99 11/14/18 04:23 11/14/18 08:00 11/14/18 12:00 Temperature 97.6 F 97.7 F 98.0 F Pulse Rate 88 96 H 84 Respiratory Rate 16 18 18 Blood Pressure 147/66 H 154/72 H 160/69 H Pulse Oximetry 96 96 99 I&O: Intake & Output 11/12/18 11/13/18 11/14/18 11/15/18 06:59 06:59 06:59 06:59 Intake Total 1801 / 1801 622 / 622 1937 / 1937 1000 / 1000 Output Total 100 / 100 1500 / 1500 1000 / 1000 Balance 1701 / 1701 -878 / -878 937 / 937 1000 / 1000 Weight 84.2 kg 83 kg 81 kg Physical Exam: CONSTITUTIONAL/GENERAL: This is an adequately nourished patient, alert, in no apparent distress. TUBES/LINES/DRAINS: Peripheral IV right upper extremity. SKIN: No jaundice, rashes, or lesions. Multiple areas of ecchymosis bilateral legs, as well as several scattered skin tears, some scaling and skin thickening consistent with chronic vascular disease bilateral lower legs. Skin is warm and dry. HEAD: Atraumatic. Normocephalic. EYES: Pupils equal and round and reactive. Extraocular motions intact. No scleral icterus. Wearing glasses. No injection or drainage. Fundi not examined. ENT: Hearing grossly normal. Nose without bleeding or purulent drainage. Throat without visible erythema, exudates, masses, or lesions. NECK: Trachea midline. Supple, nontender. No palpable thyroid enlargement or nodularity. CARDIOVASCULAR: Regular rate and rhythm without murmur. Peripheral pulses symmetric. RESPIRATORY/CHEST: Symmetric, unlabored respirations. Clear to auscultation. Breath sounds equal bilaterally. GASTROINTESTINAL: Abdomen soft, round, non-tender, nondistended. No palpable masses. No guarding. Bowel sounds present. GENITOURINARY: Without palpable bladder distension. External wick catheter in place. MUSCULOSKELETAL: Extremities without clubbing, cyanosis, or edema. No joint tenderness or effusion noted. Multiple areas of ecchymosis bilateral legs, as well as several scattered skin tears, some scaling and skin thickening consistent with chronic vascular disease bilateral lower legs LYMPHATICS: No palpable cervical or supraclavicular adenopathy. NEUROLOGICAL: Awake and alert, oriented x23. Follows commands. Some limited insight. Moves all 4 extremities with generalized weakness. PSYCHIATRIC: Flat affect, reluctant to engage Diagnostic Tests Laboratory: Laboratory Results - last 72 hr 11/12/18 11/12/18 11/14/18 06:23 06:23 12:23 WBC 6.8 RBC 3.20 L Hgb 12.2 Hct 35.2 MCV 110.1 H MCH 38.1 H MCHC 34.6 RDW 16.3 Plt Count 352 MPV 7.8 Neut % (Auto) 62.8 Lymph % (Auto) 21.5 [place] % (Auto) 13.2 H Eos % (Auto) 1.7 Baso % (Auto) 0.8 Neut # (Auto) 4.3 Lymph # (Auto) 1.5 [place] # (Auto) 0.9 Eos # (Auto) 0.1 Baso # (Auto) 0.1 WBC Differential . Differential Comment Auto diff final Sodium 144 142 Potassium 3.3 L 3.4 L Chloride 110 H 108 H Carbon Dioxide 25.8 26.9 Anion Gap 8 7 BUN 9 7 Creatinine 0.70 0.72 Estimated GFR 79 L 76 L Random Glucose 130 H 147 H Calcium 8.2 L 8.3 L Total Bilirubin 1.2 H AST 53 H ALT 43 Alkaline Phosphatase 73 Total Protein 6.1 L D Albumin 2.5 L Result Diagrams: 11/15/18 05:00 11/15/18 05:00 Microbiology: Microbiology 11/10/18 15:20 Aerobic Blood Culture - Preliminary Blood - Peripheral No growth in 4 days Anaerobic Blood Culture - Preliminary No growth in 4 days 11/10/18 15:15 Aerobic Blood Culture - Preliminary Blood - Peripheral No growth in 4 days Anaerobic Blood Culture - Preliminary No growth in 4 days 11/10/18 15:15 Urine Culture - Final Clean Catch Urine Enterococcus faecalis Imaging: Chest X-Ray 11/10/18 15:06 CONCLUSION: Mild improvement with the previously noted interstitial edema. No new or focal areas of parenchymal consolidation. Head CT 11/10/18 15:06 CONCLUSION: Stable brain appearance with no acute findings . Head MRI 11/11/18 00:00 CONCLUSION: 1. Evolving infarcts in the right frontal lobe anteriorly and posteriorly. No new infarct, mass effect or shift. Stable chronic white matter ischemic changes and cortical volume loss. Procedures: 2D echo 10/31/18left ventricular size normal, LV systolic function normal EF 60 -65%. Elevated PA pressure 55 mmHg. Patient/Family Conference Issues Discussed: *Pending * Assessment and Plan - Disease Oriented Problem List (1) Acute UTI (2) Altered mental status - Symptom Scale (1) Encephalopathy 0-10 Scale: Unable to quantify (2) Dysphagia 0-10 Scale: Unable to quantify (3) Pain 0-10 Scale: Unable to quantify Pertinent Non-Medical Issues: Psychosocial: Most recently resided in SNF. , 2 adult children. Also another daughter who is , prior hospitalization she indicates still struggling with grieving this a number of years ago. Originally from [place] those lived in [place] 35 years. Previously lived alone. Retired ; worked at [employer] and other [employer]. Spiritual:declines graduate student visit Legal:Pt with some confusion, though is partially oriented, may be able to participate in SHARED decision making. Ethical issues impacting care: no ethical issues Identified Important Contacts: Son ZAN DAVIS Prognosis: This patient was admitted for altered mental status, poor oral intake. Several recent hospitalizations. She has recent stroke requiring SNF placement and increased assistance. No new acute findings other than UTI this admission. Has continued to have poor oral intake may require feeding tube if goals aggressive. Will be at ongoing risk for aspiration, further complications and general decline. May be hospice appropriate if goals comfort oriented. Code Status: Full Code Plan: Legal decision maker:unk advanced directive status at this time. Patient with some confusion and unable to make her own decisions, though is partially oriented, may be able to participate in SHARED decision making. Kenneth Zuluaga has been serving as contact and support. Palliative plans to meet with the son tomorrow to gain additional information. Reported she has 2 adult children, by statutes both of these may be appropriate legal proxy unless one is designated as surrogate Goals: TBD, planned for telephone meeting with patient's son Zan and palliative 11/15/18 at 10:30 AM CODE STATUS: Full code SYMPTOMS: --Dysphagia/poor oral intake-patient with recent admission for CVA, ST following at that time patient required modified diet and cueing high risk for aspiration noted then. Patient continues to have poor oral intake and remains aspiration risk. May require feeding tube to meet nutritional and caloric requirements if goals are aggressive. Even with feeding tube will remain at risk for aspiration and sequelae. * Could consider adding Remeron 7.5 or 15mg PO Q HS. Weight noted in EMR 06/24/18 86 kg; current weight 81 kg--wt down by 5 kg /11#. Patient today endorses that she will eat fine when she wants to eat, and that when it is food that she likes. She does endorse some generalized abdominal pain with eating though no nausea. --AMS-patient with encephalopathy likely secondary to acute UTI. Treatment in process. Recent CVA. --pain- pt endorses feeling "terrible" all over though unable to further quantify/qualify. She endorses gen pain to abdomen when eating. She does not have prns available, cautious use of any opiates given hx CVA, AMS. would want to further investigate potential sources of pain, non pharm management. Could consider p.o. Tylenol for muscle skeletal pain. she does have multiple skin tears, ecchymosis to bilateral legs which she indicates are causing discomfort. Additionally she has been increasingly bedbound which likely is causing increasing discomfort. Some history of diarrhea which could be contributing to GI discomfort; she denies nausea today. Additionally some note in prior H&P of patient grieving the loss of her daughter she could have some component of depression/emotional pain. * Could consider adding Remeron 7.5 or 15mg PO Q HS Palliative care will continue to follow during hospital course as condition evolves, to assist patient/decision-maker with understanding of medical conditions, weighing benefits/burdens of treatment options, for clarification of goals of treatment. Additionally will assist with any symptoms of palliative concern Appreciation Thank you for the opportunity to participate in the care of Astrid Davis. Attestation Attestation: To help prompt me to consider important information that might be impacting today's encounter and assessment, information from prior notes written by myself or my colleagues may have been "brought forward" into today's note. My signature on this note, however, is an attestation that I personally performed the exam, history, and/or decision-making noted today, and, unless otherwise indicated, the interactions with patient, family, and staff as well as the review of records all occurred today. I also attest that the listed assessment and stated plan reflect my best clinical judgment today based on the combination of historical information, prior notes, and today's exam/ interactions. When time spent is documented, it refers only to time spent today by the signer, or if indicated, combined time spent today by collaborating physician/nurse practitioner.
[2018-11-15 07:27] LABS: Baso # (Auto) 0.1 th/mm3 (0.0-0.2); Baso % (Auto) 0.8 % (0.0-2.0); Eos # (Auto) 0.2 th/mm3 (0.0-0.4); Eos % (Auto) 2.3 % (0.0-4.0); Hematocrit 34.9 % (35.0-46.0); Hemoglobin 11.7 gm/dL (11.6-15.3); Lymph # (Auto) 1.5 th/mm3 (1.0-4.8); Lymph % (Auto) 21.9 % (9.0-44.0); Mean Corpuscular HGB Conc 33.5 % (32.0-36.0); Mean Corpuscular Hemoglobin 37.5 pg (27.0-34.0); Mean Corpuscular Volume 111.8 fL (80.0-100.0); Mean Platelet Volume 7.6 fL (7.0-11.0); Mono # (Auto) 0.8 th/mm3 (0.0-0.9); Mono % (Auto) 11.7 % (0.0-8.0); Neut # (Auto) 4.2 th/mm3 (1.8-7.7); Neut % (Auto) 63.3 % (16.0-70.0); Platelet Count 332 th/mm3 (150-450); Red Blood Count 3.12 mil/mm3 (4.00-5.30); Red Cell Distribution Width 15.5 % (11.6-17.2); White Blood Count 6.7 th/mm3 (4.0-11.0)
[2018-11-15 07:56] LABS: Anion Gap 10 meq/L (5-15); Blood Urea Nitrogen 6 mg/dL (7-18); Calcium 8.2 mg/dL (8.5-10.1); Carbon Dioxide 25.3 meq/L (21.0-32.0); Chloride 109 meq/L (98-107); Glomerular Filtration Rate Greater Than 89 mL/min (>89); Glucose,Random 115 mg/dL (74-106); Potassium 3.3 meq/L (3.5-5.1); Sodium 144 meq/L (136-145)
[2018-11-15] MEDS: Senna/Docusate Sodium 8.6/50 MG Tablet PO SCH ×2 (08:59→22:34)
[2018-11-15] MEDS: Nitrofurantoin Monohydrate-Macrocrystal 100 MG Capsule PO SCH ×2 (09:00→18:49)
--- NOTE | 2018-11-15 10:31 | P.PN ---
Subjective Interval history: Follow-up for poor oral intake, UTI. Patient is currently awake, alert, oriented to self/birthdate, hospital, but does not know the current month/year. She then later appears confused at times throughout conversation. She denies any specific medical complaints including no fever/chills, chest pain, shortness breath, or abdominal complaints. Physical Exam Vital signs: Vital Signs 11/14/18 12:00 11/14/18 16:00 11/14/18 20:00 Temperature 98.0 F 98.6 F 97.7 F Pulse Rate 84 100 H 95 H Respiratory Rate 18 17 16 Blood Pressure 160/69 H 182/74 H 156/64 H Pulse Oximetry 99 97 94 L 11/15/18 00:00 11/15/18 04:00 11/15/18 08:00 Temperature 97.7 F 98 F 98.1 F Pulse Rate 92 H 106 H 93 H Respiratory Rate 14 18 18 Blood Pressure 160/68 H 140/64 158/89 H Pulse Oximetry 96 94 L 96 Intake & Output 11/14/18 11/15/18 11/15/18 18:59 06:59 18:59 Intake Total 1100 / 1100 Output Total 800 / 800 300 / 300 Balance 300 / 300 -300 / -300 Weight 83.2 kg Intake: IV 1000 / 1000 D5W/Normal Saline Inj 1,000 ML 1000 / 1000 @ 42 mls/hr IV.CONT .[id number] [facility] Rx#:[id number] Oral 100 / 100 Output: Urine 800 / 800 300 / 300 Other: # Incontinent Voids 2 # Bowel Movements 0 Narrative: GENERAL: Well-nourished, well-developed pleasant elderly female patient in [facility]. SKIN: Warm and dry. No rash. Ecchymosis throughout bilateral upper and lower extremities. Bilateral anterior shins with healing abrasions/excoriations, dressings in place, CDI. HEENT: Normocephalic. Atraumatic. Pupils equal and round. Mucous membranes pink and moist. CARDIOVASCULAR: Regular rate and rhythm. No murmur appreciated. RESPIRATORY: No accessory muscle use. Clear to auscultation. Breath sounds equal bilaterally. GASTROINTESTINAL: Abdomen soft, non-tender, nondistended. Normoactive bowel sounds x4. MUSCULOSKELETAL: No obvious deformities. Extremities without clubbing, cyanosis , or edema. NEUROLOGICAL: Awake and alert. No obvious cranial nerve deficits. Moving all extremities spontaneously. Normal speech. PSYCHIATRIC: Appropriate mood and affect; insight and judgment limited - Urinary Catheter Management Straight Cath placed during this visit: yes, but has since been removed by the nurse Reason for continuing: Decision to DC catheter Insertion date: 11/10/18 Insertion time: 15:09 Removal date: 11/10/18 Removal time: 00:00 Results - Labs CBC & Chem 7: 11/15/18 05:00 11/15/18 05:00 Laboratory Results - last 24 hr 11/14/18 11/15/18 11/15/18 12:23 05:00 05:00 WBC 6.7 RBC 3.12 L Hgb 11.7 Hct 34.9 L MCV 111.8 H MCH 37.5 H MCHC 33.5 RDW 15.5 Plt Count 332 MPV 7.6 Neut % (Auto) 63.3 Lymph % (Auto) 21.9 Yell % (Auto) 11.7 H Eos % (Auto) 2.3 Baso % (Auto) 0.8 Neut # (Auto) 4.2 Lymph # (Auto) 1.5 Yell # (Auto) 0.8 Eos # (Auto) 0.2 Baso # (Auto) 0.1 WBC Differential . Differential Comment Auto diff final Sodium 142 144 Potassium 3.4 L 3.3 L Chloride 108 H 109 H Carbon Dioxide 26.9 25.3 Anion Gap 7 10 BUN 7 6 L Creatinine 0.72 0.60 Estimated GFR 76 L Greater than 89 Random Glucose 147 H 115 H Calcium 8.3 L 8.2 L Microbiology 11/10/18 15:20 Blood - Peripheral Aerobic Blood Culture - Preliminary No growth in 4 days 11/10/18 15:20 Blood - Peripheral Anaerobic Blood Culture - Preliminary No growth in 4 days 11/10/18 15:15 Blood - Peripheral Aerobic Blood Culture - Preliminary No growth in 4 days 11/10/18 15:15 Blood - Peripheral Anaerobic Blood Culture - Preliminary No growth in 4 days - Procedures none Assessment and Plan - Assessment (1) Fall at home Code(s): W19.XXXA - Unspecified fall, initial encounter; Y92.009 - Unspecified place in unspecified non-institutional (private) residence as the place of occurrence of the external cause Status: Acute (2) Stroke Code(s): I63.9 - Cerebral infarction, unspecified Status: Acute (3) Acute UTI Code(s): N39.0 - Urinary tract infection, site not specified Status: Acute (4) Altered mental status Code(s): R41.82 - Altered mental status, unspecified Status: Acute - Plan 88-year-old female patient who presented from SNF with several days of decreased p.o. intake who presented with altered mental status. Patient has become more alert and awake. The problem remains that she continues not to take much by mouth. On November 14 I did call the patient's next of kin who is her son Zan. I updated him on the care of his mother. Unfortunately Zan has a daughter who is in the ICU at [facility] and so him and his have been away and have not been able to visit the mother. They would like a meeting with palliative care over the phone to discuss goals of care and if feeding tube is the next direction they would like to go in. I will update the case management on this. Decreased PO intake -Swallow study has been performed and recommendation is for pured diet with honey thick liquids, she needs to be fed, she needs cues for patient to swallow. Although the patient cannot take her pills by mouth and will take a spoonful of food at that time she is not still eating. -Consulted palliative care for family meeting to decide about PEG tube, planning for meeting today / UTI -Urine culture growing enterococcus for faecalis, was previously on Levaquin IV -Sensitivities show sensitivity to penicillin, daptomycin, and nitroturantoin. 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 No new infarct, mass-effect or shift. Stable chronic white matter ischemic changes and cortical volume loss. -Neuro has seen and evaluated the patient: Okay to resume patient's Eliquis 2.5 mg twice daily, okay to DC to SNF, will follow up with neurology in 3 weeks Hypokalemia - replaced with po KCl DVT prophylaxis: on Eliquis Discharge Planning: Plan for patient to return to SNF when medically stable. (2) Stroke Qualifiers: CVA mechanism: unspecified Qualified Code(s): I63.9 - Cerebral infarction, unspecified (4) Altered mental status Qualifiers: Altered mental status type: somnolence Qualified Code(s): R40.0 - Somnolence
--- NOTE | 2018-11-15 12:24 | P.PNPAL ---
Reason for Visit Reason for visit: a. To assist with evaluation and management of symptoms including:pain, dysphagia b. To assist medical decision maker(s) with: better understanding of current medical conditions; weighing benefits/burdens of medical treatment options; making medical treatment decisions. Subjective Subjective/Interval History: LATE ENTRY- PT seen at 1030, 1200 Pt initially seen in room, Bryan visiting pt, assisting w needs. She is alert , partially oriented. Briefly introduced self and advised I was here to follow up with her and speak w her son Zan which she requested I do today. Stable overnight. BC no growth x 4 days. Remains in macrobid for UTI + E faecalis. Labs today essentially baseline/unremarkable slight hypokalemia 3.3. Met w family at length via phone, see below. interaction with pt after telephone meeting with family: she was partially oriented, poor insight. Noted with a cheek full of pocketed puree food material. same material also present around mouth, on gown. She was oriented to self, family, but more confused to hospitalization. She again told me of her daughter, who was a nurse. She is unable to follow conversation regarding treatment possibilities, goals. When we did discuss feeding tube she indicated she would not want that but could only state "that wouldn't be good, would be one more thing to get over" as her reason why . Joseph Lord and I assisted her to change linens, provide karlos care and reposition in bed. She continued to cough intermittently, and seemed to be clearing her throat very frequently. Not able to help with grasping siderails etc for turning. Last known PO 30+ min ago. When inquired as to how he is feeling overall she says up and down. Explore with her that she said she felt terrible last night she says she does not feel terrible today just feels up and down. She does not endorse nor denied pain. She is tearful at times seems much more emotional today. D/w medical attending Silvina TANNER, recommend Pt NPO due to pocketing, coughing witnessed during exam, high aspiration risk. Patient noted with recent hospitalization 10/31/18- 11/03--she presented then from SNF noting that she had altered mental status. She was treated as a stroke alert, last seen normal 7 PM the night before. Not TPA candidate. During that admission imaging noted scattered old lacunar infarcts within bilateral basal ganglia. 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 EKG with possible A. fib but artifacts. Possible cardioembolic event. CTA brain and carotids negative. May reinitiate oral anticoagulation depending clinical course. PT notes left-sided neglect able to sit on side of bed with moderate assistance. Very weak. ST followed; she was verbalizing however had some moderate pharyngeal dysphasia recommended for pured diet with honey thick liquids. She required max cues. She was discharged back to SNF 11/03. She was also treated in the hospital 10/27 for rhabdomyolysis. Eliquis was discontinued at that time. During another previous hospitalization 06/2018 hematology was consulted for DVT and possible "failed Eliquis "--noted that she had not been entirely consistent in taking this medication and also was forgetful and at times a poor historian. Family/Friend Interactions: Call to kenneth Zuluaga, lengthy telephone conference via speaker phone- Zan Urban also participating. Joseph Lord also participating in conference. Review w son, dtr in law: palliative care role, purpose, approach Additional medical, psychosocial, and spiritual history Patients general health, functional status, and cognitive changes in the months leading up to the current hospitalization current medical problems possible trajectories, prognosis Patients goals of care as best understood from advance directives and/or conversations and/or values Current medical treatment options and benefits/burdens of those options- much review of poor oral intake multifactorial, benefits/risks/limitations of feeding tube, anti depressants etc. Reviewed even w ongoing aggressive tx ie feeding tube, pt will remain at risk for ongoing complications,decline, including aspiration, infections etc. Likely scenarios comparing ongoing aggressive care with a transition to `` comfort measures only/ review of hospice services for comfort only/no further hospitalizations. CODE STATUS- son and dtr in law endorse pt has had a long standing DNR (though I note she is full code in hospital) they request following pt previously requested DNR status Legal decision makers- review statutes, proxy etc-- Zan reports has medical POA, they will send copies via fax or email. Questions answered to the best of my ability Palliative care contact information provided Kenneth Zuluaga details that patient health had been somewhat poor and slightly declining even before June 2018 admission. She lives at home semi- independently however was primarily chair bound and did have carpenter's helper a few days a week even at that point her independence was rather fragile. He further endorses that she has always been very "stubborn" and that he had been trying to get her into an SENIOR [facility]IVING setting for a couple of years due to her increased needs. However he indicates that she refused despite their encouragement. In June following hospitalization she returned back home about to her baseline however seem to have declined more steeply since October hospitalization for stroke. Upon review of poor oral intake they indicate that she has always been a "picky eater ", and that she is very independent and wants to do things on her own terms. They report that she has had some mild cognitive changes/ impairments as well, even before the stroke, and that she believed she was able to live independently though she was deteriorating. review her current status, diagnostics etc- review that her mental status fluctuates, though she was fairly sharp/clear when I interacted with her last night. Review that she can cont to pursue aggressive tx which would include feeding tube, rehab or comfort measures/hospice. They would like to seek pt input /goals, and will support whatever she expresses. They express they have sensed hospice/end of life discussions would be coming during her general decline. They are open to hospice/comfort if that is what pt desires, they think she does not want tubes etc. advise will f/up w pt, and then let them know how discussion goes. They will also be providing advanced directive documents via fax to Joseph Lord. 1300-- called back to son/dtr in law, they were unavailable initially, requested I call back later, I called again and was able to speak rajinder Zuluaga. Updated on interaction with the patient noted under HPI, concern for aspiration , and that patient not clear enough today to make informed decisions. Zan endorses that if the patient does not want a feeding tube he is not going to put her through that and requests no feeding to be pursued. He request DNR status. Review that with aspiration, poor oral intake, limited aggressive tx options, review again of hospice for comfort only. He is open to hospice consultation but would like to do this tomorrow (TH11/16/18)as he remains in the ICU with his ill daughter at [facility]. He indicates they are faxing over advanced directive documents now. Objective Vital Signs: Vital Signs 01/01/19 16:00 11/14/18 20:00 11/15/18 00:00 Temperature 98.6 F 97.7 F 97.7 F Pulse Rate 100 H 95 H 92 H Respiratory Rate 17 16 14 Blood Pressure 182/74 H 156/64 H 160/68 H Pulse Oximetry 97 94 L 96 11/15/18 04:00 11/15/18 08:00 Temperature 98 F 98.1 F Pulse Rate 106 H 93 H Respiratory Rate 18 18 Blood Pressure 140/64 158/89 H Pulse Oximetry 94 L 96 Intake & Output 11/14/18 11/15/18 11/15/18 18:59 06:59 18:59 Intake Total 1100 / 1100 Output Total 800 / 800 300 / 300 Balance 300 / 300 -300 / -300 Weight 83.2 kg Intake: IV 1000 / 1000 D5W/Normal Saline Inj 1,000 ML 1000 / 1000 @ 42 mls/hr IV.CONT .[id number] [facility] Rx#:[id number] Oral 100 / 100 Output: Urine 800 / 800 300 / 300 Other: # Incontinent Voids 2 # Bowel Movements 0 Physical Exam: CONSTITUTIONAL/GENERAL: This is an adequately nourished patient, alert, in no apparent distress. TUBES/LINES/DRAINS: Peripheral IV right upper extremity. SKIN: No jaundice, rashes, or lesions. Multiple areas of ecchymosis bilateral legs, as well as several scattered skin tears, some scaling and skin thickening consistent with chronic vascular disease bilateral lower legs. Skin is warm and dry. HEAD: Atraumatic. Normocephalic. EYES: Pupils equal and round and reactive. Extraocular motions intact. No scleral icterus. Wearing glasses. No injection or drainage. Fundi not examined. ENT: Hearing grossly normal. Nose without bleeding or purulent drainage. Throat without visible erythema, exudates, masses, or lesions. NECK: Trachea midline. Supple, nontender. No palpable thyroid enlargement or nodularity. CARDIOVASCULAR: Regular rate and rhythm without murmur. Peripheral pulses symmetric. RESPIRATORY/CHEST: Symmetric, unlabored respirations. Clear to auscultation. Breath sounds equal bilaterally. GASTROINTESTINAL: Abdomen soft, round, non-tender, nondistended. No palpable masses. No guarding. Bowel sounds present. GENITOURINARY: Without palpable bladder distension. External wick catheter in place. MUSCULOSKELETAL: Extremities without clubbing, cyanosis, or edema. No joint tenderness or effusion noted. Multiple areas of ecchymosis bilateral legs, as well as several scattered skin tears, some scaling and skin thickening consistent with chronic vascular disease bilateral lower legs LYMPHATICS: No palpable cervical or supraclavicular adenopathy. NEUROLOGICAL: Awake and alert, oriented x23. Follows commands. Some limited insight. Moves all 4 extremities with generalized weakness. PSYCHIATRIC: Flat affect, reluctant to engage Diagnostic Tests Laboratory: Laboratory Results - last 72 hr 11/14/18 11/15/18 11/15/18 12:23 05:00 05:00 WBC 6.7 RBC 3.12 L Hgb 11.7 Hct 34.9 L MCV 111.8 H MCH 37.5 H MCHC 33.5 RDW 15.5 Plt Count 332 MPV 7.6 Neut % (Auto) 63.3 Lymph % (Auto) 21.9 [place] % (Auto) 11.7 H Eos % (Auto) 2.3 Baso % (Auto) 0.8 Neut # (Auto) 4.2 Lymph # (Auto) 1.5 [place] # (Auto) 0.8 Eos # (Auto) 0.2 Baso # (Auto) 0.1 WBC Differential . Differential Comment Auto diff final Sodium 142 144 Potassium 3.4 L 3.3 L Chloride 108 H 109 H Carbon Dioxide 26.9 25.3 Anion Gap 7 10 BUN 7 6 L Creatinine 0.72 0.60 Estimated GFR 76 L Greater than 89 Random Glucose 147 H 115 H Calcium 8.3 L 8.2 L Result Diagrams: 11/15/18 05:00 11/15/18 05:00 Microbiology: Microbiology 11/10/18 15:20 Aerobic Blood Culture - Final Blood - Peripheral No growth in 5 days Anaerobic Blood Culture - Final No growth in 5 days 11/10/18 15:15 Aerobic Blood Culture - Final Blood - Peripheral No growth in 5 days Anaerobic Blood Culture - Final No growth in 5 days 11/10/18 15:15 Urine Culture - Final Clean Catch Urine Enterococcus faecalis Procedures: 2D echo 10/31/18left ventricular size normal, LV systolic function normal EF 60 -65%. Elevated PA pressure 55 mmHg. Assessment and Plan - Disease Oriented Problem List (1) Acute UTI (2) Altered mental status - Symptom Scale (1) Encephalopathy 0-10 Scale: Unable to quantify (2) Dysphagia 0-10 Scale: Unable to quantify (3) Pain 0-10 Scale: Unable to quantify Pertinent Non-Medical Issues: Psychosocial: Most recently resided in SNF. , 2 adult children. Also another daughter who is , prior hospitalization she indicates still struggling with grieving this a number of years ago.[This daughter was a nurse whom the patient lived with for many years then became semi-estranged from , daughter shortly after their estrangement secondary to anorexia complications. ] Originally from [place], has lived in [place] 35 years. Previously lived alone. Retired; worked at [employer] and other [employer]. Spiritual:declines dampener visit Legal:Pt with some confusion, though is partially oriented, may be able to participate in SHARED decision making. Kenneth Zuluaga is reported healthcare surrogate/POA. Ethical issues impacting care: no ethical issues Identified Important Contacts: Kenneth DAVIS (reported HCS) Prognosis: This patient was admitted for altered mental status, poor oral intake. Several recent hospitalizations. She has recent stroke requiring SNF placement and increased assistance. No new acute findings other than UTI this admission. Has continued to have poor oral intake may require feeding tube if goals aggressive. Will be at ongoing risk for aspiration, further complications and general decline. May be hospice appropriate if goals comfort oriented. Code Status: No Code DNR Plan: * Legal decision maker: Patient with some confusion and unable to make her own decisions, though is partially oriented, may be able to participate in SHARED decision making. Kenneth Zuluaga has been serving as contact and support. she has 2 adult children, by statutes both of these may be appropriate legal proxy unless one is designated as surrogate. Today 11/15/18 kenneth Zuluaga informs he is medical POA/HCS, will be faxing over documents. [id number]- verified HCS, HC POA documents name kenneth Davis as HCS. Faxed to [facility] *psychosocial note: kenneth Zuluaga ([facility]) has been at [facility] ICU x 3 weeks with their adult daughter who is critically ill, so he remains available via telephone * Goals: No feeding tube. Son requests DNR status. Hospice to be consulted for meeting, probable enrollment and transition to comfort , 11/16/18. --discussed w medical attending PA, primary nurse, F.Roster. * CODE STATUS: DNR * SYMPTOMS: --Dysphagia/poor oral intake-patient with recent admission for CVA, ST following at that time patient required modified diet and cueing high risk for aspiration noted then. Patient continues to have poor oral intake and remains aspiration risk. May require feeding tube to meet nutritional and caloric requirements if goals are aggressive. Even with feeding tube will remain at risk for aspiration and sequelae. * Could consider adding Remeron 7.5 or 15mg PO Q HS. Weight noted in EMR 06/24/18 86 kg; current weight 81 kg--wt down by 5 kg /11#. Patient today endorses that she will eat fine when she wants to eat, and that when it is food that she likes. She does endorse some generalized abdominal pain with eating though no nausea. --AMS-patient with encephalopathy likely secondary to acute UTI. Treatment in process. Recent CVA. --pain- pt endorses feeling "terrible" all over upon initial meeting 11/14, though unable to further quantify/qualify. She endorses gen pain to abdomen when eating. She does not have prns available, cautious use of any opiates given hx CVA, AMS. would want to further investigate potential sources of pain, non pharm management. use p.o. Tylenol for muscle skeletal pain. she does have multiple skin tears, ecchymosis to bilateral legs which she indicates are causing discomfort. Additionally she has been increasingly bedbound which likely is causing increasing discomfort. Some history of diarrhea which could be contributing to GI discomfort; she denies nausea today. Additionally some note in prior H&P of patient grieving the loss of her daughter she could have some component of depression/emotional pain. * Could consider adding Remeron 7.5 or 15mg PO Q HS * Palliative care will continue to follow during hospital course as condition evolves, to assist patient/decision-maker with understanding of medical conditions, weighing benefits/burdens of treatment options, for clarification of goals of treatment. Additionally will assist with any symptoms of palliative concern Time Spent Total Floor Time (mins): 75 Attestation Attestation: To help prompt me to consider important information that might be impacting today's encounter and assessment, information from prior notes written by myself or my colleagues may have been "brought forward" into today's note. My signature on this note, however, is an attestation that I personally performed the exam, history, and/or decision-making noted today, and, unless otherwise indicated, the interactions with patient, family, and staff as well as the review of records all occurred today. I also attest that the listed assessment and stated plan reflect my best clinical judgment today based on the combination of historical information, prior notes, and today's exam/ interactions. When time spent is documented, it refers only to time spent today by the signer, or if indicated, combined time spent today by collaborating physician/nurse practitioner.
[2018-11-15] MEDS: Dextrose 5%/NaCl 0.9% Inj 1,000 ML IV.CONT SCH ×2 (14:19→18:49)
[2018-11-16] MEDS: Nitrofurantoin Monohydrate-Macrocrystal 100 MG Capsule PO SCH ×2 (08:18→17:01)
[2018-11-16] MEDS: Senna/Docusate Sodium 8.6/50 MG Tablet PO SCH ×2 (08:19→20:32)
--- NOTE | 2018-11-16 09:28 | P.PNFP ---
Subjective Interval history: Seen in bed, she is alert not conversive this am Follows simple commands, Appears comfortable Results - Labs Result diagrams: 11/15/18 05:00 11/15/18 05:00 Physical Exam Vital signs: Vital Signs 11/15/18 12:00 11/15/18 16:00 11/15/18 22:00 Temperature 98.3 F 98.7 F 98 F Pulse Rate 95 H 106 H 76 Respiratory Rate 18 18 17 Blood Pressure 152/74 H 155/77 H 154/68 H Pulse Oximetry 95 96 95 11/16/18 04:00 11/16/18 08:00 Temperature 98.3 F 97.3 F L Pulse Rate 101 H 102 H Respiratory Rate 18 18 Blood Pressure 157/76 H 163/80 H Pulse Oximetry 95 95 Intake & Output 11/15/18 11/16/18 11/16/18 18:59 06:59 18:59 Intake Total 1100 / 1100 0 / 0 Output Total 600 / 600 200 / 200 Balance 500 / 500 -200 / -200 Weight 82.2 kg Intake: IV 1000 / 1000 D5W/Normal Saline Inj 1,000 ML 1000 / 1000 @ 42 mls/hr IV.CONT .[id number] [facility] Rx#:[id number] Oral 100 / 100 0 / 0 Output: Urine 600 / 600 200 / 200 Other: # Incontinent Voids 2 # Bowel Movements 0 0 - Constitutional no acute distress - Routine Respiratory Exam Present: CTA bilaterally, diminished air movement - Routine Cardiovascular Exam Present: S1, S2 - Routine Abdominal Exam Present: soft, normoactive bowel sounds - Routine Skin Exam Present: dry, warm, ecchymosis Comments: skin tears b/l le - Routine Neurological Exam Present: alert - Routine Psychiatric Exam Present: cooperative - Urinary Catheter Management Straight Cath placed during this visit: yes, but has since been removed by the nurse Reason for continuing: Decision to DC catheter Insertion date: 11/10/18 Insertion time: 15:09 Removal date: 11/10/18 Removal time: 00:00 Assessment and Plan - Assessment (1) Acute UTI Code(s): N39.0 - Urinary tract infection, site not specified Status: Acute Plan: On empiric antibiotics and sensitivity is pending but culture is >100,000 Group D enterococcus She was switched to macrobid, patient pocketing food, feeding tube vs hospice pending (2) Altered mental status Code(s): R41.82 - Altered mental status, unspecified Status: Acute Plan: She has H/O recent CVA, neuro work up completed - Assessment and Plan 11/11/18 - She was started on IVF and empiric treatment for presumed UTI. Will allow PO today given her MS is improved. F/U Neuro consult in light of her recent AMS, hemiparesis and recent CVA. 11/12/18 - On antibiotics and urine growing enterococcus and sensitivity is pending. Neuro eval ongoing and MRI reveals no new infarct. Swallowing study to be done today. Her VS are stable and she is afebrile but remains pleasantly confused which may be her baseline, but will F/U MESMERIST eval and urine sensitivity. 11/16/17- Seen this am she is alert, non conversive. She has been pocketing food and has been placed NPO. Family to decide between Hospice vs feeding tube. B?l skin tear RLE with dressing left open is little red, will add bacitracin with dressing. (2) Altered mental status Qualifiers: Altered mental status type: somnolence Qualified Code(s): R40.0 - Somnolence
[2018-11-16] MEDS: Dextrose 5%/NaCl 0.9% Inj 1,000 ML IV.CONT SCH (14:42)
--- NOTE | 2018-11-16 16:35 | P.PNPAL ---
Reason for Visit Reason for visit: a. To assist with evaluation and management of symptoms including:pain, dysphagia b. To assist medical decision maker(s) with: better understanding of current medical conditions; weighing benefits/burdens of medical treatment options; making medical treatment decisions. Subjective Subjective/Interval History: LATE ENTRY- PT seen at 1400 Pt remains stable. s/p hospice consultation , hospice in process of communicating w family for enrollment, consents etc. Son remains in [place] [facility] with another ill family member, so completing process via fax, email etc. No new labs or imaging today. remains NPO 2/2 for concerns of aspiration, yesterday observed coughing frequently post PO, and pocketing moderate amts of food. Today seen in room, no visitors present. She is very lethargic she minimally stirs to my exam. She does not follow any commands she briefly opens her eyes and then resumed sleeping. She does appear comfortable, no apparent distress. Discussed with hospice admissions nurse who indicates consent procedure is still in process. Review with her that if patient lethargy worsens and patient experiences additional symptoms may be appropriate for hospice care center versus back to nursing facility with hospice. Patient noted with recent hospitalization 10/31/18- 11/03--she presented then from SNF noting that she had altered mental status. She was treated as a stroke alert, last seen normal 7 PM the night before. Not TPA candidate. During that admission imaging noted scattered old lacunar infarcts within bilateral basal ganglia. 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 EKG with possible A. fib but artifacts. Possible cardioembolic event. CTA brain and carotids negative. May reinitiate oral anticoagulation depending clinical course. PT notes left-sided neglect able to sit on side of bed with moderate assistance. Very weak. ST followed; she was verbalizing however had some moderate pharyngeal dysphasia recommended for pured diet with honey thick liquids. She required max cues. She was discharged back to SNF 11/03. She was also treated in the hospital 10/27 for rhabdomyolysis. Eliquis was discontinued at that time. During another previous hospitalization 06/2018 hematology was consulted for DVT and possible "failed Eliquis "--noted that she had not been entirely consistent in taking this medication and also was forgetful and at times a poor historian. Objective Vital Signs: Vital Signs 11/15/18 22:00 11/16/18 04:00 11/16/18 08:00 Temperature 98 F 98.3 F 97.3 F L Pulse Rate 76 101 H 102 H Respiratory Rate 17 18 18 Blood Pressure 154/68 H 157/76 H 163/80 H Pulse Oximetry 95 95 97 11/16/18 12:00 Temperature 98.2 F Pulse Rate 96 H Respiratory Rate 18 Blood Pressure 135/62 Pulse Oximetry 97 Intake & Output 11/15/18 11/16/18 11/16/18 18:59 06:59 18:59 Intake Total 1100 / 1100 0 / 0 1000 / 1000 Output Total 600 / 600 200 / 200 Balance 500 / 500 -200 / -200 1000 / 1000 Weight 82.2 kg Intake: IV 1000 / 1000 1000 / 1000 D5W/Normal Saline Inj 1,000 ML 1000 / 1000 1000 / 1000 @ 42 mls/hr IV.CONT .[id number] [facility] Rx#:[id number] Oral 100 / 100 0 / 0 Output: Urine 600 / 600 200 / 200 Other: # Incontinent Voids 2 # Bowel Movements 0 0 Physical Exam: CONSTITUTIONAL/GENERAL: This is an adequately nourished patient, lethargic, no apparent distress. TUBES/LINES/DRAINS: Peripheral IV lt upper extremity. SKIN: No jaundice, rashes, or lesions. Multiple areas of ecchymosis bilateral legs, as well as several scattered skin tears, some scaling and skin thickening consistent with chronic vascular disease bilateral lower legs. Skin is warm and dry. CARDIOVASCULAR: Regular rate and rhythm without murmur. Peripheral pulses symmetric. RESPIRATORY/CHEST: Symmetric, unlabored respirations. Clear to auscultation. Breath sounds equal bilaterally. GASTROINTESTINAL: Abdomen soft, round, non-tender, nondistended. No palpable masses. No guarding. Bowel sounds present. GENITOURINARY: Without palpable bladder distension. External wick catheter in place. MUSCULOSKELETAL: Extremities without clubbing, cyanosis, or edema. No joint tenderness or effusion noted. Multiple areas of ecchymosis bilateral legs, as well as several scattered skin tears, some scaling and skin thickening consistent with chronic vascular disease bilateral lower legs NEUROLOGICAL: Lethargic, minimally stirs to exam. Brief eye opening. Does not follow any commands for me. Does not verbalize. Observe moving extremities spontaneous. PSYCHIATRIC: very lethargic Diagnostic Tests Laboratory: Laboratory Results - last 72 hr 11/14/18 11/15/18 11/15/18 12:23 05:00 05:00 WBC 6.7 RBC 3.12 L Hgb 11.7 Hct 34.9 L MCV 111.8 H MCH 37.5 H MCHC 33.5 RDW 15.5 Plt Count 332 MPV 7.6 Neut % (Auto) 63.3 Lymph % (Auto) 21.9 [place] % (Auto) 11.7 H Eos % (Auto) 2.3 Baso % (Auto) 0.8 Neut # (Auto) 4.2 Lymph # (Auto) 1.5 [place] # (Auto) 0.8 Eos # (Auto) 0.2 Baso # (Auto) 0.1 WBC Differential . Differential Comment Auto diff final Sodium 142 144 Potassium 3.4 L 3.3 L Chloride 108 H 109 H Carbon Dioxide 26.9 25.3 Anion Gap 7 10 BUN 7 6 L Creatinine 0.72 0.60 Estimated GFR 76 L Greater than 89 Random Glucose 147 H 115 H Calcium 8.3 L 8.2 L Result Diagrams: 11/15/18 05:00 11/15/18 05:00 Microbiology: Microbiology 11/10/18 15:20 Aerobic Blood Culture - Final Blood - Peripheral No growth in 5 days Anaerobic Blood Culture - Final No growth in 5 days 11/10/18 15:15 Aerobic Blood Culture - Final Blood - Peripheral No growth in 5 days Anaerobic Blood Culture - Final No growth in 5 days Procedures: 2D echo 10/31/18left ventricular size normal, LV systolic function normal EF 60 -65%. Elevated PA pressure 55 mmHg. Assessment and Plan - Disease Oriented Problem List (1) Acute UTI (2) Altered mental status Pertinent Non-Medical Issues: Psychosocial: Most recently resided in SNF. , 2 adult children. Also another daughter who is , prior hospitalization she indicates still struggling with grieving this a number of years ago.[This daughter was a nurse whom the patient lived with for many years then became semi-estranged from , daughter shortly after their estrangement secondary to anorexia complications. ] Originally from [place], has lived in [place] 35 years. Previously lived alone. 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 Suhas Zuluaga is reported healthcare surrogate/POA. Ethical issues impacting care: no ethical issues Identified Important Contacts: Suhas BENAVIDES (reported HCS) Prognosis: This patient was admitted for altered mental status, poor oral intake. Several recent hospitalizations. She has recent stroke requiring SNF placement and increased assistance. No new acute findings other than UTI this admission. Has continued to have poor oral intake may require feeding tube if goals aggressive. Will be at ongoing risk for aspiration, further complications and general decline. May be hospice appropriate if goals comfort oriented. Code Status: No Code DNR Plan: * Legal decision maker: Patient with some confusion and unable to make her own decisions, though is partially oriented, may be able to participate in SHARED decision making. Suhas Zuluaga has been serving as contact and support. she has 2 adult children, by statutes both of these may be appropriate legal proxy unless one is designated as surrogate. Today 11/15/18 suhas Zuluaga informs he is medical POA/HCS, will be faxing over documents. 1345- verified HCS, HC POA documents name suhas Benavides as HCS. Faxed to [facility] *psychosocial note: suhas Zuluaga ([facility]) has been at [facility] ICU x 3 weeks with their adult daughter who is critically ill, so he remains available via telephone * Goals: No feeding tube. Son requests DNR status. Hospice enrollment pending completion of admissions documents. May transition back to nursing facility with hospice versus possible care center if her condition deteriorates * CODE STATUS: DNR * SYMPTOMS: --Dysphagia/poor oral intake-patient with recent admission for CVA, ST following at that time patient required modified diet and cueing high risk for aspiration noted then. Patient continues to have poor oral intake and remains aspiration risk. May require feeding tube to meet nutritional and caloric requirements if goals are aggressive. Even with feeding tube will remain at risk for aspiration and sequelae. * Could consider adding Remeron 7.5 or 15mg PO Q HS. Weight noted in EMR 06/24/18 86 kg; current weight 81 kg--wt down by 5 kg /11#. Patient prev endorses that she will eat fine when she wants to eat, and that when it is food that she likes. She does endorse some generalized abdominal pain with eating though no nausea. She is now n.p.o. due to pocketing , coughing and concern for aspiration. --AMS-patient with encephalopathy likely secondary to acute UTI. Treatment in process. Recent CVA. --pain- pt endorses feeling "terrible" all over upon initial meeting 11/14, though unable to further quantify/qualify. She endorses gen pain to abdomen when eating. She does not have prns available, cautious use of any opiates given hx CVA, AMS. would want to further investigate potential sources of pain, non pharm management. use p.o. Tylenol for muscle skeletal pain. she does have multiple skin tears, ecchymosis to bilateral legs which she indicates are causing discomfort. Additionally she has been increasingly bedbound which likely is causing increasing discomfort. Some history of diarrhea which could be contributing to GI discomfort; she denies nausea today. Additionally some note in prior H&P of patient grieving the loss of her daughter she could have some component of depression/emotional pain. * Could consider adding Remeron 7.5 or 15mg PO Q HS * Palliative care will continue to follow during hospital course as condition evolves, to assist patient/decision-maker with understanding of medical conditions, weighing benefits/burdens of treatment options, for clarification of goals of treatment. Additionally will assist with any symptoms of palliative concern Attestation Attestation: To help prompt me to consider important information that might be impacting today's encounter and assessment, information from prior notes written by myself or my colleagues may have been "brought forward" into today's note. My signature on this note, however, is an attestation that I personally performed the exam, history, and/or decision-making noted today, and, unless otherwise indicated, the interactions with patient, family, and staff as well as the review of records all occurred today. I also attest that the listed assessment and stated plan reflect my best clinical judgment today based on the combination of historical information, prior notes, and today's exam/ interactions. When time spent is documented, it refers only to time spent today by the signer, or if indicated, combined time spent today by collaborating physician/nurse practitioner.
--- NOTE | 2018-11-17 12:00 | P.PNFP ---
Subjective Interval history: Seen this am, she appears comfortable She states she is cold, does not answer any other questions not following commands Hospice arrangement in progress Results - Labs Result diagrams: 11/15/18 05:00 11/15/18 05:00 Physical Exam Vital signs: Vital Signs 11/16/18 12:00 11/16/18 16:00 11/16/18 20:00 Temperature 98.2 F 98.8 F 98.2 F Pulse Rate 96 H 89 97 H Respiratory Rate 18 18 17 Blood Pressure 135/62 148/65 H 165/70 H Pulse Oximetry 97 96 98 11/17/18 00:00 11/17/18 04:00 11/17/18 08:00 Temperature 98.3 F 98.2 F 97.3 F L Pulse Rate 89 98 H 87 Respiratory Rate 17 17 20 Blood Pressure 151/78 H 151/67 H 150/88 H Pulse Oximetry 96 93 L 95 Intake & Output 11/16/18 11/17/18 11/17/18 18:59 06:59 18:59 Intake Total 1000 / 1000 0 / 0 Output Total 300 / 300 Balance 1000 / 1000 -300 / -300 Weight 81.8 kg Intake: IV 1000 / 1000 D5W/Normal Saline Inj 1,000 ML 1000 / 1000 @ 42 mls/hr IV.CONT .[id number] [facility] Rx#:[id number] Oral 0 / 0 Output: Urine 300 / 300 Other: Date of Last Bowel Movement 11/14/18 # Bowel Movements 0 - Constitutional no acute distress - Routine Respiratory Exam Present: CTA bilaterally - Routine Cardiovascular Exam Present: S1, S2 - Routine Abdominal Exam Present: soft, normoactive bowel sounds - Routine Extremities Exam Present: edema - Routine Skin Exam Present: dry, warm, wounds Comments: Skin tears B/L le - Routine Neurological Exam Present: alert - Urinary Catheter Management Straight Cath placed during this visit: yes, but has since been removed by the nurse Reason for continuing: Decision to DC catheter Insertion date: 11/10/18 Insertion time: 15:09 Removal date: 11/10/18 Removal time: 00:00 Assessment and Plan - Assessment (1) Acute UTI Code(s): N39.0 - Urinary tract infection, site not specified Status: Acute Plan: On empiric antibiotics and sensitivity is pending but culture is >100,000 Group D enterococcus She was switched to macrobid, patient pocketing food, feeding tube vs hospice pending (2) Altered mental status Code(s): R41.82 - Altered mental status, unspecified Status: Acute Plan: She has H/O recent CVA, neuro work up completed - Assessment and Plan 11/11/18 - She was started on IVF and empiric treatment for presumed UTI. Will allow PO today given her MS is improved. F/U Neuro consult in light of her recent AMS, hemiparesis and recent CVA. 11/12/18 - On antibiotics and urine growing enterococcus and sensitivity is pending. Neuro eval ongoing and MRI reveals no new infarct. Swallowing study to be done today. Her VS are stable and she is afebrile but remains pleasantly confused which may be her baseline, but will F/U EQUIPMENT HIRE MANAGER eval and urine sensitivity. 11/16/17- Seen this am she is alert, non conversive. She has been pocketing food and has been placed NPO. Family to decide between Hospice vs feeding tube. B?l skin tear RLE with dressing left open is little red, will add bacitracin with dressing. 11/17/17- Alert found in bed, no apparent distress. She is not following commands. Hospice arrangements in progress. Dc once arrangements made. Hepas to scheduled on assume care on 11/18/18, 0700. (2) Altered mental status Qualifiers: Altered mental status type: somnolence Qualified Code(s): R40.0 - Somnolence
[2018-11-17] MEDS: Nitrofurantoin Monohydrate-Macrocrystal 100 MG Capsule PO SCH ×2 (12:09→19:28)
[2018-11-17] MEDS: Senna/Docusate Sodium 8.6/50 MG Tablet PO SCH ×3 (12:10→21:53)
[2018-11-17] MEDS: Dextrose 5%/NaCl 0.9% Inj 1,000 ML IV.CONT SCH (16:09)
[2018-11-18] MEDS: Senna/Docusate Sodium 8.6/50 MG Tablet PO SCH (08:28)
[2018-11-18] MEDS: Nitrofurantoin Monohydrate-Macrocrystal 100 MG Capsule PO SCH ×2 (08:28→18:31)
--- NOTE | 2018-11-18 11:44 | P.PNIM ---
Subjective Interval history: Follow-up for poor oral intake, UTI. Patient is resting in bed. She wakes up on verbal commands. However, she does not participate in any conversation in any meaningful way. Afebrile. Physical Exam Vital signs: Last Vital Signs Temp 98.5 F 11/18/18 07:58 Pulse 105 H 11/18/18 07:58 Resp 18 11/18/18 07:58 BP 159/82 H 11/18/18 07:58 Pulse Ox 95 11/18/18 07:58 Intake & Output 11/16/18 11/17/18 11/18/18 11/19/18 06:59 06:59 06:59 06:59 Intake Total 1100 / 1100 1000 / 1000 0 / 0 Output Total 800 / 800 300 / 300 400 / 400 Balance 300 / 300 700 / 700 -400 / -400 Weight 82.2 kg 81.8 kg 82.8 kg Narrative: GENERAL: Well-nourished, well-developed pleasant elderly female patient in [facility]. SKIN: Warm and dry. No rash. Ecchymosis throughout bilateral upper and lower extremities. Bilateral anterior shins with healing abrasions/excoriations, dressings in place, CDI. HEENT: Normocephalic. Atraumatic. Pupils equal and round. Mucous membranes pink and moist. CARDIOVASCULAR: Regular rate and rhythm. No murmur appreciated. RESPIRATORY: No accessory muscle use. Clear to auscultation. Breath sounds equal bilaterally. GASTROINTESTINAL: Abdomen soft, non-tender, nondistended. Normoactive bowel sounds x4. MUSCULOSKELETAL: No obvious deformities. Extremities without clubbing, cyanosis , or edema. NEUROLOGICAL: Awake and alert. No obvious cranial nerve deficits. Moving all extremities spontaneously. Normal speech. PSYCHIATRIC: Appropriate mood and affect; insight and judgment limited Urinary Catheter Management Straight: Cath placed during this visit: yes, but has since been removed by the nurse Insertion date: 11/10/18 Insertion time: 15:09 Removal date: 11/10/18 Removal time: 00:00 Results Labs CBC & Chem 7: 11/15/18 05:00 11/15/18 05:00 Procedures Procedures: none Assessment and Plan Plan 88-year-old female patient who presented from [facility] with several days of decreased p.o. intake who presented with altered mental status. Patient has become more alert and awake. The problem remains that she continues not to take much by mouth. On November 14 I did call the patient's next of kin who is her son Zan. I updated him on the care of his mother. Unfortunately Zan has a daughter who is in the ICU at [place] and so him and his have been away and have not been able to visit the mother. They would like a meeting with palliative care over the phone to discuss goals of care and if feeding tube is the next direction they would like to go in. I will update the case management on this. Decreased PO intake -Swallow study has been performed and recommendation is for pured diet with honey thick liquids, she needs to be fed, she needs cues for patient to swallow. Although the patient cannot take her pills by mouth and will take a spoonful of food at that time she is not still eating. -Consulted palliative care. Patient is hospice appropriate. Per palliative care , no feeding tube. -Possible hospice. Hospice team likely need to discuss with family members. UTI -Urine culture growing enterococcus for faecalis, was previously on Levaquin IV -Sensitivities show sensitivity to penicillin, daptomycin, and nitroturantoin. 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 No new infarct, mass-effect or shift. Stable chronic white matter ischemic changes and cortical volume loss. -Neuro has seen and evaluated the patient: Okay to resume patient's Eliquis 2.5 mg twice daily, okay to DC to SNF, will follow up with neurology in 3 weeks Hypokalemia - replaced with po KCl DNR. Apixaban. Discharge plan: Patient can be discharged to hospice when accepted. Progress Note: Quality VTE Deep Vein Thrombosis/Pulmonary Embolism Present on Admission: No
[2018-11-18] MEDS: Dextrose 5%/NaCl 0.9% Inj 1,000 ML IV.CONT SCH (18:30)
[2018-11-19] MEDS: Senna/Docusate Sodium 8.6/50 MG Tablet PO SCH ×3 (03:36→22:40)
[2018-11-19] MEDS: Nitrofurantoin Monohydrate-Macrocrystal 100 MG Capsule PO SCH ×3 (08:06→17:47)
--- NOTE | 2018-11-19 14:30 | P.PNIM ---
Subjective Interval history: Follow-up for poor oral intake, UTI. Patient is somewhat more alert today. She speaks softly but able to communicate. She has no acute concerns. She feels that she can eat and wants to eat spaghetti. Physical Exam Vital signs: Last Vital Signs Temp 97.7 F 11/19/18 12:00 Pulse 105 H 11/19/18 12:00 Resp 14 11/19/18 12:00 BP 135/83 11/19/18 12:00 Pulse Ox 95 11/19/18 12:00 Intake & Output 11/17/18 11/18/18 11/19/18 11/20/18 06:59 06:59 06:59 06:59 Intake Total 1000 / 1000 0 / 0 1521 / 1521 Output Total 300 / 300 400 / 400 200 / 200 Balance 700 / 700 -400 / -400 1321 / 1321 Weight 81.8 kg 82.8 kg 80.1 kg Narrative: GENERAL: Alert, NAD. SKIN: Warm and dry. HEAD: Normocephalic. EYES: No scleral icterus. No injection or drainage. NECK: Supple, trachea midline. No JVD or lymphadenopathy. CARDIOVASCULAR: Regular rate and rhythm without murmurs, gallops, or rubs. RESPIRATORY: Breath sounds equal bilaterally. No accessory muscle use. GASTROINTESTINAL: Abdomen soft, non-tender, nondistended. MUSCULOSKELETAL: No cyanosis, or edema. BACK: Nontender without obvious deformity. No CVA tenderness. Urinary Catheter Management Straight: Cath placed during this visit: yes, but has since been removed by the nurse Insertion date: 11/10/18 Insertion time: 15:09 Removal date: 11/10/18 Removal time: 00:00 Results Labs CBC & Chem 7: 11/15/18 05:00 11/15/18 05:00 Procedures Procedures: none Assessment and Plan Plan 88-year-old female patient who presented from SNF with several days of decreased p.o. intake who presented with altered mental status. Patient has become more alert and awake. The problem remains that she continues not to take much by mouth. On November 14 I did call the patient's next of kin who is her son Zan. I updated him on the care of his mother. Unfortunately Zan has a daughter who is in the ICU at [place] and so him and his have been away and have not been able to visit the mother. They would like a meeting with palliative care over the phone to discuss goals of care and if feeding tube is the next direction they would like to go in. I will update the case management on this. Decreased PO intake -Swallow study has been performed and recommendation is for pured diet with honey thick liquids, she needs to be fed, she needs cues for patient to swallow. Although the patient cannot take her pills by mouth and will take a spoonful of food at that time she is not still eating. -Consulted palliative care. Patient is hospice appropriate. Per palliative care , no feeding tube. -Possible hospice. Hospice team is waiting for some paperwork to be completed by patient's son who has been busy with regards his own daughter's illness. UTI -Urine culture growing enterococcus for faecalis, was previously on Levaquin IV -Sensitivities show sensitivity to penicillin, daptomycin, and nitroturantoin. 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 No new infarct, mass-effect or shift. Stable chronic white matter ischemic changes and cortical volume loss. -Neuro has seen and evaluated the patient: Okay to resume patient's Eliquis 2.5 mg twice daily, okay to DC to SNF, will follow up with neurology in 3 weeks -Will ask Speech to evaluate patient again tomorrow 11/20/2018. Hypokalemia -Replaced with po KCl -Repeat CBC, BMP in the morning. DNR. Apixaban. Discharge plan: Patient can be discharged to hospice when accepted. Progress Note: Quality VTE Deep Vein Thrombosis/Pulmonary Embolism Present on Admission: No
[2018-11-19] MEDS: Dextrose 5%/NaCl 0.9% Inj 1,000 ML IV.CONT SCH (16:09)
[2018-11-20 07:13] LABS: Baso % (Auto) 0.3 % (0.0-2.0); Eos # (Auto) 0.4 th/mm3 (0.0-0.4); Eos % (Auto) 3.6 % (0.0-4.0); Hematocrit 32.8 % (35.0-46.0); Hemoglobin 11.3 gm/dL (11.6-15.3); Lymph # (Auto) 0.8 th/mm3 (1.0-4.8); Lymph % (Auto) 7.5 % (9.0-44.0); Mean Corpuscular HGB Conc 34.4 % (32.0-36.0); Mean Corpuscular Hemoglobin 37.6 pg (27.0-34.0); Mean Corpuscular Volume 109.2 fL (80.0-100.0); Mean Platelet Volume 7.5 fL (7.0-11.0); Mono # (Auto) 0.7 th/mm3 (0.0-0.9); Neut # (Auto) 8.2 th/mm3 (1.8-7.7); Neut % (Auto) 81.6 % (16.0-70.0); Platelet Count 279 th/mm3 (150-450); Red Cell Distribution Width 15.5 % (11.6-17.2); White Blood Count 10.1 th/mm3 (4.0-11.0)
[2018-11-20 07:32] LABS: Anion Gap 6 meq/L (5-15); Blood Urea Nitrogen 14 mg/dL (7-18); Carbon Dioxide 27.6 meq/L (21.0-32.0); Chloride 111 meq/L (98-107); Glomerular Filtration Rate Greater Than 89 mL/min (>89); Glucose,Random 139 mg/dL (74-106); Sodium 145 meq/L (136-145)
[2018-11-20] MEDS: Senna/Docusate Sodium 8.6/50 MG Tablet PO SCH ×2 (10:10→20:36)
[2018-11-20] MEDS: Nitrofurantoin Monohydrate-Macrocrystal 100 MG Capsule PO SCH ×2 (10:10→18:59)
--- NOTE | 2018-11-20 16:53 | P.PNIM ---
Subjective Interval history: Follow-up for poor oral intake, UTI, Afib. Patient is sleepy, slightly opens eyes on verbal commands. No fever, chills. Physical Exam Vital signs: Last Vital Signs Temp 98.2 F 11/20/18 12:00 Pulse 99 H 11/20/18 12:00 Resp 18 11/20/18 12:00 BP 165/72 H 11/20/18 12:00 Pulse Ox 97 11/20/18 12:00 Intake & Output 11/18/18 11/19/18 11/20/18 11/21/18 06:59 06:59 06:59 06:59 Intake Total 0 / 0 1521 / 1521 1042 / 1042 Output Total 400 / 400 200 / 200 450 / 450 Balance -400 / -400 1321 / 1321 592 / 592 Weight 82.8 kg 80.1 kg 81.5 kg Narrative: GENERAL: Sleepy, NAD. SKIN: Warm and dry. HEAD: Normocephalic. EYES: No scleral icterus. No injection or drainage. NECK: Supple, trachea midline. No JVD or lymphadenopathy. CARDIOVASCULAR: Irreg Irreg without murmurs, gallops, or rubs. RESPIRATORY: Breath sounds equal bilaterally. No accessory muscle use. GASTROINTESTINAL: Abdomen soft, non-tender, nondistended. MUSCULOSKELETAL: No cyanosis, or edema. BACK: Nontender without obvious deformity. No CVA tenderness. Urinary Catheter Management Straight: Cath placed during this visit: yes, but has since been removed by the nurse Insertion date: 11/10/18 Insertion time: 15:09 Removal date: 11/10/18 Removal time: 00:00 Results Labs CBC & Chem 7: 11/20/18 06:57 11/20/18 06:57 Procedures Procedures: none Assessment and Plan Plan 88-year-old female patient who presented from SNF with several days of decreased p.o. intake who presented with altered mental status. Patient has become more alert and awake. The problem remains that she continues not to take much by mouth. On November 14 I did call the patient's next of kin who is her son Zan. I updated him on the care of his mother. Unfortunately Zan has a daughter who is in the ICU at [facility] and so him and his have been away and have not been able to visit the mother. They would like a meeting with palliative care over the phone to discuss goals of care and if feeding tube is the next direction they would like to go in. I will update the case management on this. Decreased PO intake -Swallow study has been performed and recommendation is for pured diet with honey thick liquids, she needs to be fed, she needs cues for patient to swallow. Although the patient cannot take her pills by mouth and will take a spoonful of food at that time she is not still eating. -Consulted palliative care. Patient is hospice appropriate. Per palliative care , no feeding tube. -Possible hospice. Hospice team is waiting for some paperwork to be completed by patient's son who has been busy with regards his own daughter's illness. UTI -Urine culture growing enterococcus for faecalis, was previously on Levaquin IV -Sensitivities show sensitivity to penicillin, daptomycin, and nitrofurantoin. -Given her PCN allergy, started nitrofurantoin 11/13 100 mg BID x5days Atrial fibrillation -Heart rate around 100. -Will start on a low dose beta ray, metoprolol 12.5mg BID. 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 No new infarct, mass-effect or shift. Stable chronic white matter ischemic changes and cortical volume loss. -Neuro has seen and evaluated the patient: Okay to resume patient's Eliquis 2.5 mg twice daily, okay to DC to SNF, will follow up with neurology in 3 weeks -Will ask Speech to evaluate patient again tomorrow 11/20/2018. Hypokalemia -Replaced with po KCl -Repeat CBC, BMP in the morning. DNR. Apixaban. Discharge plan: Patient can be discharged to hospice when accepted. Progress Note: Quality VTE Deep Vein Thrombosis/Pulmonary Embolism Present on Admission: No
[2018-11-20] MEDS: Dextrose 5%/NaCl 0.9% Inj 1,000 ML IV.CONT SCH (18:57)
[2018-11-20] MEDS: Metoprolol Tartrate 25 MG Tablet PO SCH (20:36)
[2018-11-21] MEDS: Senna/Docusate Sodium 8.6/50 MG Tablet PO SCH (11:21)
[2018-11-21] MEDS: Nitrofurantoin Monohydrate-Macrocrystal 100 MG Capsule PO SCH (11:21)
[2018-11-21] MEDS: Metoprolol Tartrate 25 MG Tablet PO SCH (11:21)
--- NOTE | 2018-11-21 13:25 | P.DS ---
Date of admission: 11/10/18 16:12 Primary care physician: Bill Mclain DO Brief History from admission: Patient presented from SNF with a several day H/O anorexia and refusing food and fluid and presented to the ED with AMS and active urinary sediment. DS: Diagnosis - Discharge Diagnosis (1) Acute UTI Status: Acute (2) Altered mental status Status: Acute DS: Summary Hospital Course: This is an 88-year-old female patient who presented from SNF with several days of decreased p.o. intake who presented with altered mental status. UA was suggestive of a UTI, urine culture grew enterococcus. She is previously on IV Levaquin. Once sensitivities resulted I started the patient on p.o. nitrofurantoin. Patient underwent CT and MRI for altered mental status. CT was normal. MRI showed evolving infarcts in the right frontal lobe anterior and posteriorly. No new infarcts. Neuro saw and evaluated the patient. [place] the changes and MRI were stable and chronic in nature. They okayed the patient to be restarted on Eliquis at 2.5 mg twice daily. She was cleared back to SNF, family wanted palliative care consult. Patient down graded to NPO status for pocketing foods, Hospice consulted, peg tube declined. She continued to decline. She will be dc under Hospice services either care center or Snf - Time Spent with Patient Total time spent providing and/or coordinating discharge services: 20 Less than 30 minutes - Quality: AMI Clinical Trial Participant: No - Quality: Stroke Symptom Onset Unknown: No - Quality: VTE Is this test being ordered to rule out VTE?: No Deep Vein Thrombosis/Pulmonary Embolism Present on Admission: No Exam Vital signs: Vital Signs 11/20/18 16:00 11/20/18 20:00 11/21/18 00:00 Temperature 98.2 F 97.9 F 97.4 F L Pulse Rate 84 112 H 100 H Respiratory Rate 16 18 17 Blood Pressure 176/79 H 162/73 H 159/70 H Pulse Oximetry 96 95 95 11/21/18 04:00 11/21/18 08:00 Temperature 97.7 F 98.0 F Pulse Rate 105 H 110 H Respiratory Rate 15 16 Blood Pressure 139/60 142/42 H Pulse Oximetry 96 95 Intake & Output 11/20/18 11/21/18 11/21/18 18:59 06:59 18:59 Intake Total 437 / 437 Output Total 125 / 125 200 / 200 Balance 312 / 312 -200 / -200 Weight 80.9 kg Intake: IV 437 / 437 D5W/Normal Saline Inj 1,000 ML 437 / 437 @ 42 mls/hr IV.CONT .[id number] MICHELLE Rx#:[id number] Output: Urine 125 / 125 200 / 200 Other: # Incontinent Voids 2 Date of Last Bowel Movement 11/18/18 11/18/18 - Constitutional no acute distress - Routine Respiratory Exam Present: CTA bilaterally - Routine Cardiovascular Exam Present: S1, S2 - Routine Abdominal Exam Present: soft, normoactive bowel sounds - Routine Extremities Exam Present: edema - Routine Skin Exam Present: dry, warm, wounds - Routine Neurological Exam Present: alert Results Procedures completed during hospitalization: none - Impressions ITS Impressions Chest X-Ray 11/10/18 15:06 CONCLUSION: Mild improvement with the previously noted interstitial edema. No new or focal areas of parenchymal consolidation. Head CT 11/10/18 15:06 CONCLUSION: Stable brain appearance with no acute findings . Head MRI 11/11/18 00:00 CONCLUSION: 1. Evolving infarcts in the right frontal lobe anteriorly and posteriorly. No new infarct, mass effect or shift. Stable chronic white matter ischemic changes and cortical volume loss. Discharge Plan - Discharge Disposition Patient Disposition: [facility] Hospice/Med Facility - Discharge Condition Condition: Stable - Discharge Order Discharge Orders: Discharge Order (Routine); Ordered 11/21/18 Ordered By: Rosemarie Velázquez - Discharge Details Anticipated Discharge Date: 11/21/18 - Physicians Team Primary Care Provider: Bill Mclain Attending Provider: Bill Mclain
[2018-11-21 13:32] VITALS: BP 185/97; PULSE 93; RESP 18; TEMP 97.9; O2SAT 97
== END 2018-11-21 15:58 | disposition hospice, inpatient (51) | DRG 689 ==
LOC: NEPE 14:40 → NEDA 16:12 → N04 17:26
PROVIDERS: ADMIT Family Medicine; ATTEND Family Medicine
CPT/HCPCS: 70450; 70551; 71010; 71045; 76937; 80048; 80053; 81001; 82140; 82948; 82962; 83605; 83735; 84443; 84484; 85025; 85610; 87040; 87077; 87086; 87186; 92526; 92610; 93005; 97110; 97163; 97530; 99285; G0195; J1956; J7042; P9612